=== PATIENT | female | born 1955 | race Caucasian/White ===

== ENCOUNTER 2022-01-28 12:29 | Inpatient (IN) | payer OTHER, MEDICAID ==
[~2022-01-28] VITALS: Ht 147.3 cm; Wt 87.1 kg
--- NOTE | 2022-01-28 10:15 | NUR ---
LAB AT THE BEDSIDE FOR BMP DRAW.
[~2022-01-28 12:29] MED LIST: ALBU0.0912 IH; AZIT250T3 PO; CEPH-588 PO
--- NOTE | 2022-01-28 12:29 | NUR ---
Patient BIBA to bed 1, Dr. Parker, RT Horacio, and Evangelina RN at bedside
--- NOTE | 2022-01-28 12:30 | NUR ---
66 Y/O FEMALE BIBA C/O SOB X 3 DAYS. PER EMS PT O2 SAT WAS IN 80S, PT IS SATING AT 100% WITH CPAP IN ED. PT +TACHYPNEA, CRACKLES, INSPIRATORY AND EXPIRATORY WHEEZES AND PT IS USING ACCESSORY MUSCLES TO BREATH. PT AND MD AT PT BEDSIDE. BED LOCKED IN LOWEST POSITION, BED RAIL X1. PMH: CHF,COPD NKA
[2022-01-28 12:47] VITALS: BP_SYST 101; BP_SYST 131; BP_DIAS 52; BP_DIAS 59
[2022-01-28] MEDS ORDERED: NITROGLYCERIN 50 MG/D5W PREMIX 250 ML IV ONE ×2 (12:50→14:45)
[2022-01-28] MEDS ORDERED: ASPIRIN 325 MG TAB PO ONE (12:50)
[2022-01-28] MEDS ORDERED: methylPREDNISolone SS 125 MG in WATER STERILE 2 ML IV ONE (12:50)
[2022-01-28] MEDS ORDERED: FUROSEMIDE 40 MG/4 ML VIAL IVP ONE ×2 (12:50→12:58)
[2022-01-28] MEDS ORDERED: methylPREDNISolone SS 125 MG/2 ML VIAL ONE (12:57)
[2022-01-28] MEDS ORDERED: ASPIRIN 325 MG TAB ONE (12:59)
[2022-01-28] MEDS ORDERED: ALBUTEROL SULFATE/IPRATROPIU 3 ML SOL IH ONE (13:30)
[2022-01-28 13:38] LABS: BASOPHILS % (AUTO) 0.4 % (0.0-2.0); EOSINOPHILS % (AUTO) 0.6 % (0.0-4.0); HEMATOCRIT 26.6 % (36-48); HEMOGLOBIN 7.9 g/dL (12.0-16.0); LYMPHOCYTES # (AUTO) 1.4 K/uL (2.5-16.5); LYMPHOCYTES % (AUTO) 17.4 % (20.5-51.1); MEAN CORPUSCULAR HEMOGLOBIN 21 pg (27-31); MEAN CORPUSCULAR HGB CONC 30 g/dL (33-37); MEAN CORPUSCULAR VOLUME 69.7 fL (80-94); MONOCYTES # (AUTO) 0.8 K/uL (0.8-1.0); MONOCYTES % (AUTO) 10.3 % (1.7-9.3); NEUTROPHILS # (AUTO) 5.7 K/uL (1.8-7.7); NEUTROPHILS % (AUTO) 71.3 % (42.2-75.2); PLATELET COUNT (AUTO) 558 K/uL (140-450); RED BLOOD CELL COUNT(AUTO) 3.82 MIL/uL (4.20-5.40); RED CELL DISTRIBUTION WIDTH 22.2 % (11.6-13.7)
[2022-01-28 13:50] LABS: PROTHROMBIN TIME 11.6 secs (10.8-13.4)
[2022-01-28 13:53] LABS: ALBUMIN 3.2 g/dL (3.4-5.0); ANION GAP 8.2 (8-16); CARBON DIOXIDE 34.4 mmol/L (21-32); CREATININE 0.7 mg/dL (0.6-1.3); TOTAL BILIRUBIN 0.4 mg/dL (0.0-1.0)
[2022-01-28 13:56] LABS: POTASSIUM 2.6 mmol/L (3.5-5.1)
[2022-01-28] MEDS ORDERED: KCL 20 MEQ/WATER INJ PREMIX 200 ML IV ONE (14:05)
[2022-01-28] MEDS ORDERED: POTASSIUM CHLORIDE 20% 40 MEQ/15 ML UDC PO ONE (14:05)
--- NOTE | 2022-01-28 14:27 | NUR ---
ATTEMPTED TO TAKE BP READING READ 46/25. MADE MULTIPLE ATTEMPTS TO RECHECK WITH NO BP READING, CHANGED LOCATION OF BP CUFF. NOT ABLE TO OBTAIN READINGS. PT DIAPHORETIC, AGITATED. RT NOTIFIED. MD NOTIFIED. NITRO DRIP STOPPED
--- NOTE | 2022-01-28 14:27 | NUR ---
Note heavenly in EDM - 01/28/22 at [address] MCRAE AND RT AT BEDSIDE. PT IS VERY AGITATED AND ATTEMPTING TO TAKE OFF BIPAP, TRYING TO SPIT UP. NITRO DRIP STOPPED.
[2022-01-28 14:28] VITALS: BP 110/42
--- NOTE | 2022-01-28 14:28 | NUR ---
ENGINEERING SCIENTIST CALLED TO BEDSIDE PATIENT PRESENTING WITH INCREASED SOB WITH TOTAL RATE AT +40 BPM DEEP CHEST RISE COARSE RALES BILATERAL ADJUSTMENTS MADE TO BIPAP DR. LANEY INGRAM AT BEDSIDE
[2022-01-28] MEDS ORDERED: fentaNYL citrate 0.05 MG/ML VIAL IVP ONE (14:35)
[2022-01-28] MEDS ORDERED: ONDANSETRON 4 MG/2 ML VIAL IVP ONE (14:35)
--- NOTE | 2022-01-28 14:36 | NUR ---
BP TAKEN 110/42. RT AT PT BEDSIDE. PT LESS AGITATED.
--- NOTE | 2022-01-28 14:50 | NUR ---
Pt report given to NEETU,SLUDGE CONTROL ATTENDANT. Transfer of care at this time.
--- NOTE | 2022-01-28 15:00 | NUR ---
RECEIVED REPORT. PATIENT VSS. SO2 98% ON BIPAP. POSTERIOR LUNG SOUNDS WITH WHEEZES BILATERALLY.
[2022-01-28] MEDS ORDERED: fentaNYL citrate 0.05 MG/ML VIAL ONE (15:42)
--- NOTE | 2022-01-28 15:50 | NUR ---
PEE MCKEON WALKED TO LAB
--- NOTE | 2022-01-28 17:00 | NUR ---
ADMISSION ORDER RECEIVED FOR ICU.
[2022-01-28] MEDS ORDERED: ALBUTEROL SULFATE/IPRATROPIU 3 ML SOL IH PRN (17:40)
--- NOTE | 2022-01-28 18:43 | NUR ---
#22G IV WAS PULLED OUT WITH PATIENT MOVING. ATTEMPTED TO INSERT NEW WITHOUT SUCCESS.
[2022-01-28] MEDS: ALBUTEROL SULFATE/IPRATROPIU 3 ML SOL IH SCH (19:44)
--- NOTE | 2022-01-28 19:45 | NUR ---
TRANSFERRED PATIENT TO ICU 2 FROM ED. REPORT GIVEN TO XIMENA BUSCH.
--- NOTE | 2022-01-28 19:45 | NUR ---
RECEIVED PT. FROM ER, REPORT GIVEN BY XIMENA DE ANDA. PT. AOX4. EYES PERRLA. ON BIPAP 35%, MAINTAINING O2 SAT GREATER THAN 96%. LUNG SOUNDS RHONCHI ON INHALE AND EXHALE. CONT. SINUS RHYTHM ON MONITOR. IV TO RIGHT AC 18G, CAPPED AND FLUSH. STARTED PACK CATHETER DRAINING CLEAR YELLOW URINE, STRICT I&O PER MD ORDERED. PT. SCHEDULE FOR PICC LINE AND CALLED PICC LINE RN, LEFT A MESSAGE, NO CALL BACK YET. PT. SIGNED CONSENT FOR PICC LINE. EXPLAINED TO PT. ABOUT CODE STATUS, IF SHE WANTS TO BE A FULL CODE AND PER PT.SHE STATED SHE WANTS TO BE A FULL CODE IN THE EVENT THAT HER CONDITION DETERIORATE. SISTER MAURY CALLED AND PROVIDED UPDATE WITH PT. CONDITION. SKIN INTACT WITH SMALL SCAR AT THE RIGHT BUTTOCK. ALL SAFETY MEASURES IN PLACE WITH BED IN LOWER POSITION AND CALL LIGHT WITHIN REACH. PT. ABLE TO REPOSITION HERSELF IN BED. NO S/S OF PAIN NOTED.
[2022-01-28 20:00] VITALS: BP 124/79
[2022-01-28] MEDS: methylPREDNISolone SS 125 MG/2 ML VIAL IVP SCH (21:00)
[2022-01-28] MEDS: PANTOPRAZOLE 40 MG INJ VIAL IVP SCH (21:00)
[2022-01-28 22:00] VITALS: BP 112/71
[2022-01-28] MEDS: ZOLPIDEM 5 MG TAB PO PRN (22:10)
--- NOTE | 2022-01-28 23:00 | NUR ---
PT. GIVEN AMBIEN PO PER MD ORDERED AND EFFECTIVE. PT. SLEEPING AT THIS TIME. CONT. ON BIPAP FIO2 28% AND O2 SAT 97%. WILL CONT. TO MONITOR.
[2022-01-28] MEDS ORDERED: MAG SULF 2000 MG/WATER PREMIX 50 ML IV PRN (23:25)
[2022-01-28] MEDS ORDERED: POTASSIUM CHLORIDE 10 MEQ TABER PO PRN (23:25)
[2022-01-28] MEDS ORDERED: DOCUSATE SODIUM 100 MG GELCAP PO PRN (23:35)
[2022-01-28] MEDS ORDERED: ZOLPIDEM 5 MG TAB PO PRN (23:35)
[2022-01-28] MEDS ORDERED: ACETAMINOPHEN 325 MG TAB PO PRN (23:35)
[2022-01-29] VITALS (20 sets, daily range): BP systolic 104–158; BP diastolic 51–89
[2022-01-29 00:03] LABS: CHOL/HDL RATIO 2.9 (1-4.5); THYROID STIMULATING HORMONE 0.12 uIU/mL (0.34-3.74)
[2022-01-29] MEDS: ALBUTEROL SULFATE/IPRATROPIU 3 ML SOL IH SCH ×4 (01:00→19:15)
[2022-01-29] MEDS: HYDROcodone/APAP 5/325 MG 1 TAB TAB PO PRN ×2 (03:28→13:53)
--- NOTE | 2022-01-29 03:28 | NUR ---
PT. AWAKE, ALERT AND ORIENTED, REPOSITIONING HERSELF IN BED AND C/O ACHING PAIN TO HER LEGS, RATE SCALE 6. GIVEN NORCO PO PRN ORDERED. WILL CONT. TO MONITOR
--- NOTE | 2022-01-29 04:04 | NUR ---
PT. PAIN MEDICATION PRN EFFECTIVE, PT. SLEEPING AT THIS TIME. V/S 104/51, HR 95, R 24 ON BIPAP 28% AND O2 SAT 91%.WILL CONT. TO MONITOR.
--- NOTE | 2022-01-29 04:14 | NUR ---
LAB AT THE BEDSIDE FOR BMP DRAW, PT. REFUSED TO DRAW HER BLOOD. TRIED TO TALKED AND EXPLAINED TO HER BUT SHE STRONGLY REFUSED. WILL ENDORSE TO THE NEXT SHIFT.
[2022-01-29 05:30] LABS: APPEARANCE,URINE CLEAR (CLEAR); BILIRUBIN,URINE NEGATIVE (NEGATIVE); BLOOD, URINE NEGATIVE (NEGATIVE); COLOR,URINE YELLOW (YELLOW); LEUKOCYTE ESTERASE ,URINE NEGATIVE (NEGATIVE); NITRITE, URINE NEGATIVE (NEGATIVE); UGLUCOSE NEGATIVE (NEGATIVE)
[2022-01-29 05:43] LABS: BARBITURATE, URINE NEGATIVE ng/ml (NEG <=200); BENZODIAZEPINE, URINE POSITIVE ng/mL (NEG <=200); CANNABINOID, URINE NEGATIVE ng/mL (NEG <=50); COCAINE, URINE NEGATIVE ng/mL (NEG <=300); OPIATE, URINE POSITIVE ng/mL (NEG <=2000); PHENCYCLIDINE SCREEN,URINE NEGATIVE ng/mL (NEG <=25)
[2022-01-29] MEDS: methylPREDNISolone SS 125 MG/2 ML VIAL IVP SCH (05:44)
[2022-01-29] MEDS ORDERED: ALBUTEROL SULFATE/IPRATROPIU 3 ML SOL IH SCH (06:00)
--- NOTE | 2022-01-29 06:00 | NUR ---
PT. ORAL INTAKE 2 TEASPOON OF VANILLA PUDDING TO TAKE HER PO MEDICATIONS.
--- NOTE | 2022-01-29 06:48 | NUR ---
PT. PROVIDED AM CARE AND CARMINE-CARE. SLEEPING AT THIS TIME. CONT. ON BIPAP 28% WITH O2 SAT 96%. IV TO RIGHT AC, FLUSHED WITH NS 10 ML, PATENT, INTACT AND CAPPED. COLLECTED DRUG SCREEN URINE AND URINALYSIS AND SENT TO LAB. BMP NOT COLLECTED BY LAB SINCE PT. REFUSED TO BE DRAWN. REPORTED TO THE EDITORIAL ASSISTANT AND WILL ENDORSE TO THE NEXT SHIFT. PT. SCHEDULE FOR ECHOCARDIOGRAM PER MD ORDERED. WILL ENDORSE TO THE NEXT SHIFT.
--- NOTE | 2022-01-29 07:10 | NUR ---
CXR DONE AT BEDSIDE.
--- NOTE | 2022-01-29 07:20 | NUR ---
RECIEVED PT ALERT AND ORIENTED X3. NO C/O PAIN AT THIS TIME. ON BIPAP WITH SETTINGS OF 12/6 RATE 16 FIO2@28%. SINUS RHYTHM ON MONITOR. ABD HYPOACTIVE X4 QUADS. PACK CATHETER INTACT AND DRAINING YELLOW URINE TO BSD. SCD ON BILAT LOWER LEGS. PERIPHERAL IV 18 GAUGE INTACT AND PATENT ON RAC. KEPT CLEAN AND DRY. SAFETY PRECAUTIONS IN PLACE. WILL CONTINUE TO MONITOR.
--- NOTE | 2022-01-29 07:22 | NUR ---
ENDORSED PT. TO DAY SHIFT RN FOR CONTINUITY OF CARE.
--- NOTE | 2022-01-29 08:45 | NUR ---
PICC LINE NURSE AT BEDSIDE TO INSERT MID LINE ON LEFT UPPER ARM. ULTRASOUND AT BEDSIDE.
--- NOTE | 2022-01-29 08:53 | NUR ---
SEEN AND EXAMINED BY DR. MARTINEZ.
[2022-01-29] MEDS ORDERED: FUROSEMIDE 40 MG/4 ML VIAL IVP SCH ×2 (09:00→16:00)
--- NOTE | 2022-01-29 09:14 | NUR ---
PATIENT HAS BEEN SCREENED AND CATEGORIZED MODERATE NUTRITION RISK. PATIENT WILL BE SEEN WITHIN 3-5 DAYS OF ADMISSION. [address]
--- NOTE | 2022-01-29 09:15 | NUR ---
SEEN AND EXAMINED BY DR. CHOU.
[2022-01-29] MEDS: PANTOPRAZOLE 40 MG INJ VIAL IVP SCH ×2 (09:16→20:33)
--- NOTE | 2022-01-29 09:30 | NUR ---
ECHOCARDIOGRAM BEING DONE AT BEDSIDE.
--- NOTE | 2022-01-29 10:25 | NUR ---
LAB AT BEDSIDE.
[2022-01-29 10:34] LABS: HEMATOCRIT 24.9 % (36-48); HEMOGLOBIN 7.3 g/dL (12.0-16.0); MEAN CORPUSCULAR HEMOGLOBIN 20 pg (27-31); MEAN CORPUSCULAR HGB CONC 29 g/dL (33-37); MEAN CORPUSCULAR VOLUME 69.9 fL (80-94); PLATELET COUNT (AUTO) 568 K/uL (140-450); RED BLOOD CELL COUNT(AUTO) 3.56 MIL/uL (4.20-5.40); WHITE BLOOD COUNT (AUTO) 5.3 K/uL (4.8-10.8)
[2022-01-29 10:54] LABS: CARBON DIOXIDE 35.8 mmol/L (21-32); CREATININE 0.8 mg/dL (0.6-1.3); MAGNESIUM 2.7 mg/dL (1.8-2.4); PHOSPHORUS 5.7 mg/dL (2.5-4.9); TOTAL BILIRUBIN 0.5 mg/dL (0.0-1.0)
[2022-01-29 10:56] LABS: POTASSIUM 2.8 mmol/L (3.5-5.1)
[2022-01-29 11:16] LABS: EOSINOPHILS % (MANUAL) 1 % (0-4); LYMPHOCYTES % (MANUAL) 12 % (20-46); MONOCYTES % (MANUAL) 6 % (5-12)
--- NOTE | 2022-01-29 11:20 | NUR ---
DR. CORONA AT BEDSIDE EXAMINING PT. REPORTED CRITICAL LAB TO DR. CORONA. RECEIVED NEW ORDER.
--- NOTE | 2022-01-29 11:32 | NUR ---
RT AT BEDSIDE.
[2022-01-29] MEDS ORDERED: KCL 20 MEQ/WATER INJ PREMIX 200 ML IV SCH (11:45)
--- NOTE | 2022-01-29 12:03 | NUR ---
DC PLANNIN YRS FEMALE PATIENT WAS ADMITTED FROM [facility] WITH A DX OF CHF AND COPD EXACERBATION, ACUTE RESP DISTRESS. PATIENT HAS A HX OF CHF, COPD HOME O2 BREAST CA. CXRAY (-) RAPID COVID TEST NEGATIVE. ON BIPAP 28% FIO2 SATING 95%. ADMITTED TO ICU FOR CLOSE MONITORING, ADMINISTERED LASIX AND SOLU-MEDROL IV AND CONTINUED HOME MEDS CONSULTED WITH BETOMO AND CARDIO. DC PLAN TO RETURN TO [facility] WHEN STABLE. CM TO FOLLOW Addendum: 01/30/22 at 1258 by Anila Molina RN DC PLANNING: DR FLACA SLATER, IN THE UNIT DISCUSSED WITH PATIENT AND HER SISTER MAURY, EXPLAINED AND ANSWERED ALL QUESTIONS, BOTH AGREED WITH INTUBATION. PT SUCCESSFULLY INTUBATED FIO2 60% . CM TO FOLLOW Addendum: 01/31/22 at 1348 by Anila Molina RN DC PLANNING: REMAINS INTUBATED FIO2 30% 1 UNIT PRBC GIVEN H/H 7.9/25.8 HELD IFRAH PER BULK INTAKE WORKER CONTINUE IV ABX LEVAQUIN. CARDIO, PULMOAND NEPHRO FOLLOWING. CM TO FOLLOW Addendum: 02/04/22 at 1519 by Anila Molina RN DC PLANNING: COLONOSCOPY DONE NO SOURCE OF BLEEDING IDENTIFIED. STILL INTUBATED SEDATED FIO2 30%. CONTINUE PROPOFOL AND PRECEDEX DRIP. PULMO AND CARDIO FOLLOWING. CM TO FOLLOW Addendum: 02/06/22 at 1250 by Anila Molina RN DC PLANNING: PATIENT REINTUBATED ON 02/05 AT 1300 FIO2 45%. WBC 19.9 UA NO GROWTH CONTINUE IV ABX ZOSYN ON PROPOFOL AND AMIODARONE DRIP. CARDIO , PULMO AND NEPHRO FOLLOWING. CM TO FOLLOW. Addendum: 02/12/22 at 1119 by Anila Molina RN DC PLANNING: SPOKE WITH DR HINES DISCUSSED THE SURGERY PLAN . EXPLAIN THE DELAY WITH THE HIGH HEART RATE . DR HINES SPOKE WITH DR DHALIWAL AND WAS TOLD MIGHT DO IT TOMORROW 02/[address] HINES ORDERED IF DR DHALIWAL'S PLAN CHANGE TO [facility] EVALUATION. FAXED THE ORDER TO [facility] NOTIFIED DR LIN. SMITH TO FOLLOW Addendum: 02/13/22 at 1511 by Anila Molina RN DC PLANNING PATIENT HAD TRACH AND PEG TODAY BY DR DHALIWAL TOLERATED WELL. DC PLAN SUBACUTE PLACEMENT. [facility]. Addendum: 02/17/22 at 1052 by Anila Molina RN DC PLANNING: WBC 32.6 ON VANCOMYCIN AND ZOSYN IV ABX , TRACH TO VENT ON SOLU-MEDROL IVP PULMO,ID NEPHRO AND UROLOGIST FOLLOWING. DC PLAN TO TRANSFER TO [facility] ROOM WHEN STABLE. CM TO FOLLOW Addendum: 02/18/22 at 1103 by Anila Molina RN DC PLANNING: FAXED THE CLINICALS TO [facility] . ZBIGNIEW MALLOY WILL TALK TO THE DON REGARDING THE WBC 18.1 AND CALL BACK CM TO FOLLOW Addendum: 02/18/22 at 1127 by Anila Molina RN DC PLANNING: CALLED PATIENT'S SISTER [phone] SPOKE WITH MAURY DISCUSSED THE DC PLAN PER MAURY AT FIRST REQUESTING TO BE TRANSFERRED TO THE [facility] OR [facility]. LUIS EXPLAINED DEPENDS ON INSURANCE CONTRACTED FACILITIES. MAURY CALLED BACK AND STATED SINCE THE DR'S ARE GOOD TO HER SHE PREFERRED THAT THE DR'S RECOMMENDED SUBACUTE. MAURY AGREED FOR HER SISTER TO GO TO [facility]. CM TO FOLLOW Addendum: 02/18/22 at 1150 by Anila Molina RN DC PLANNING: CESAR LA NENA SPOKE WITH ROSY AND SHE PROVIDED THE AUTH # FOR [facility] AND TRANSPORT AUTH # [id number] PATIENT IS ACCEPTED AT [facility] CAN GO TO ROOM 3A # TO GIVE REPORT [phone] ARRANGED TRANSPORT WITH [facility] TIME 4 PM. NOTIFIED JEREMY BUENO AND PT'S SISTER MAURY. CM TO FOLLOW
[2022-01-29] MEDS: methylPREDNISolone SS 40 MG/ML VIAL IVP SCH ×2 (12:35→20:34)
--- NOTE | 2022-01-29 13:24 | NUR ---
DR. THAYER AT BEDSIDE EXAMINING PT. NEW ORDERS RECEIVED.
--- NOTE | 2022-01-29 13:39 | NUR ---
PT AT BEDSIDE FOR EVAL. RT AT BEDSIDE.
[2022-01-29] MEDS: LEVOFLOXACIN 500 MG/D5W PREMIX 100 ML IV SCH (13:53)
--- NOTE | 2022-01-29 15:55 | NUR ---
PT REMOVED FROM BIPAP 27/02 AND PLACED ON 7L OXIMIZER PER WEANING MEASURES. PT HAS AUDIBLE WHEEZES. PT HAS NO SOB OR COMPLAINTS. SPO2 MAINTAINED ABOVE 96%. WILL MONITOR & F/U.
--- NOTE | 2022-01-29 17:31 | NUR ---
PT WITH INCREASED WORK OF BREATHING WITH OXYMISER. EDUCATED AND DEMONSTRATED BREATHING TECHNIQUES. PT REQUEST TO GO BACK ON BIPAP. RT AT BEDSIDE AND PLACED PT BACK ON BIPAP SETTINGS 27/02 RATE 16 FIO2 28%. PT NODDED THAT SHE FEELS BETTER WITH THE BIPAP ON.
--- NOTE | 2022-01-29 19:18 | NUR ---
ENDORSED TO RETAIL PRODUCT ADVISOR NURSE NARAYAN FOR CONTINUITY OF CARE.
[2022-01-29] MEDS: BUDESONIDE 0.5 MG/2 ML NEBU INH SCH (19:21)
--- NOTE | 2022-01-29 19:35 | NUR ---
PT SEEN AND ASSESSED. PT IS ON BiPAP AT THIS TIME. BiPAP SETTINGS: IPAP 16, EPAP 6, BACK UP RATE 16, FiO2 28% WITH SPO2 97%. BiPAP PLUGGED IN RED OUTLET. AMBU BAG AT BEDSIDE. ALARMS SET AND FUNCTIONING. AUSCULTATION REVEALS CLEAR BILATERAL BREATH SOUNDS. HHN TX GIVEN ORDERED AND PT TOLERATED WELL WITHOUT ANY ADVERSE REACTION. NO RESPIRATORY DISTRESS NOTED AT THIS TIME. WILL CONTINUE TO MONITOR
--- NOTE | 2022-01-29 19:38 | NUR ---
RECEIVED REPORT FROM DAY SHIFT RN. PT. WIDE AWAKE, AOX4. ABLE TO MOVE ALL EXTREMITIES AND ABLE TO LET NEEDS KNOWN. CONT. ON BIPAP FI02 28%, I-16, E-6. PT. TOLERATING BIPAP WITH O2 SAT 95%. LUNG SOUNDS, WHEEZING ON THE RIGHT SIDE AND RHONCHI ON THE LEFT SIDE. ST ON MONITOR. ABDOMEN SOFT, NON TENDER, HYPOACTIVE SOUND. IVF NS TKO TO THE LEFT ARM MID PICC LINE. SITE DRY, PATENT AND INTACT. BREAKFAST FULL LIQUID AT THE BEDSIDE, OFFERED, BUT PT. REFUSED. F/C IN PLACE AND DRAINING YELLOW CLEAR URINE TO GRAVITY. SEQUENTIAL DEVICES ON. TO LOWER EXTREMITIES. INITIAL ASSESSMENT COMPLETED. ALL SAFETY MEASURES IN PLACE WITH BED IN LOWEST POSITION. WILL CONT. TO MONITOR
[2022-01-29] MEDS: DILTIAZEM 30 MG TAB PO SCH (20:35)
[2022-01-29] MEDS: APIXABAN 2.5 MG TAB PO SCH (20:45)
[2022-01-29] MEDS ORDERED: LORazepam 2 MG/ML VIAL IVP ONE (21:15)
--- NOTE | 2022-01-29 21:16 | NUR ---
PT. NOTED TO BE ANXIOUS WITH HR 110. CALLED DR. LOMBARDI, REPORTED PT. ANXIETY AND ORDERED ATIVAN 0.5MG IVP X 1 AND IF NOT EFFECTIVE TO CALL HIM BACK.
[2022-01-29] MEDS ORDERED: LORazepam 2 MG/ML VIAL ONE ×2 (21:23→23:02)
--- NOTE | 2022-01-29 22:37 | NUR ---
PT. PROVIDED PERSONAL HYGIENE, TURNED AND REPOSITIONED. BED PLACED IN A LOWEST POSITION WITH HEAD WITHIN 45 DEGREES.
[2022-01-29] MEDS ORDERED: LORazepam 2 MG/ML VIAL IVP SCH (23:00)
--- NOTE | 2022-01-29 23:00 | NUR ---
PT. ATIVAN 0.5MG IVP X [address] LOMBARDI IS NOT EFFECTIVE. CALLED AGAIN DR. LOMBARDI, REPORTED PT. REMAINS AGITATED AND HE ORDERED ATIVAN 1.5MG IVP X 1 AND CALL HIM AGAIN IF NOT EFFECTIVE.
[2022-01-30] VITALS (21 sets, daily range): BP systolic 91–150; BP diastolic 53–85
[2022-01-30] MEDS: ZOLPIDEM 5 MG TAB PO PRN (00:44)
[2022-01-30] MEDS: methylPREDNISolone SS 40 MG/ML VIAL IVP SCH ×3 (04:48→20:15)
[2022-01-30 05:34] LABS: ANION GAP 8.9 (8-16); CARBON DIOXIDE 33.1 mmol/L (21-32); CREATININE 1.1 mg/dL (0.6-1.3)
[2022-01-30 05:45] LABS: MAGNESIUM 2.6 mg/dL (1.8-2.4); PHOSPHORUS 3.6 mg/dL (2.5-4.9)
[2022-01-30 06:19] LABS: HEMATOCRIT 23.2 % (36-48); MEAN CORPUSCULAR HEMOGLOBIN 21 pg (27-31); MEAN CORPUSCULAR HGB CONC 29 g/dL (33-37); MEAN CORPUSCULAR VOLUME 70.1 fL (80-94); PLATELET COUNT (AUTO) 650 K/uL (140-450); RED BLOOD CELL COUNT(AUTO) 3.31 MIL/uL (4.20-5.40); RED CELL DISTRIBUTION WIDTH 22.1 % (11.6-13.7); WHITE BLOOD COUNT (AUTO) 15.2 K/uL (4.8-10.8)
[2022-01-30] MEDS: HYDROcodone/APAP 5/325 MG 1 TAB TAB PO PRN (06:27)
--- NOTE | 2022-01-30 06:43 | NUR ---
CONSTRUCTION HELPER CALLED TO BEDSIDE PATIENT PRESENTING WITH INCREASED SOB AND IRRITABILITY SITTING UP ON EDGE OF BED CINDY/SARY RN AT BEDSIDE HHN THERAPY WITH DUONEB GIVEN AT THIS TIME SCHEDULED AND PRN CONSTRUCTION HELPER REQUESTED RN TO GIVE LASIX AT THIS TIME
[2022-01-30] MEDS ORDERED: FUROSEMIDE 40 MG/4 ML VIAL IVP ONE (06:53)
--- NOTE | 2022-01-30 06:55 | NUR ---
PHONE CALL TO DR CHOU; INFORMED RE; PT SOB, WHEEZING NOTED, RT AT BEDSIDE, PER DR CHOU TO GIVE 0900 LASIX IVP NOW
[2022-01-30] MEDS: ALBUTEROL SULFATE/IPRATROPIU 3 ML SOL IH SCH ×3 (06:56→19:07)
[2022-01-30] MEDS: BUDESONIDE 0.5 MG/2 ML NEBU INH SCH ×2 (06:57→19:08)
[2022-01-30] MEDS: ALBUTEROL SULFATE/IPRATROPIU 3 ML SOL IH PRN ×2 (06:57→16:23)
--- NOTE | 2022-01-30 07:15 | NUR ---
ENDORSED PT. TO AM SHIFT RN FOR CONTINUITY OF CARE. DR. CHOU AND RT ARE AT THE BEDSIDE RIGHT NOW, CHECKING THE PT.
--- NOTE | 2022-01-30 07:32 | NUR ---
RECEIVED PT ALERT AND ORIENTED X3. ON BIPAP WITH SETTINGS 16/6 RATE 16 FIO2@28%. WHEEZING HEARD THROUGHOUT LUNGS. SINUS TACHYCARDIA ON MONITOR. BOWEL SOUNDS HYPOACTIVE. PACK CATHETER INTACT AND DRAINING TO BSD. PERIPHERAL IV 18 GAUGE INTACT AND PATENT ON RAC. MIDLINE ON LAC INTACT AND PATENT INFUSING NS AT TKO. KEPT CLEAN AND DRY. SAFETY PRECAUTIONS IN PLACE.
[2022-01-30] MEDS ORDERED: SODIUM PHOSPHATE 118 ML ENEM RC SCH (07:52)
[2022-01-30 07:56] LABS: HEMOGLOBIN 6.8 g/dL (12.0-16.0)
[2022-01-30] MEDS: ATORVASTATIN 20 MG TAB PO SCH (08:28)
[2022-01-30] MEDS: PANTOPRAZOLE 40 MG INJ VIAL IVP SCH ×2 (08:28→20:15)
[2022-01-30] MEDS: DILTIAZEM 30 MG TAB PO SCH ×2 (08:28→20:15)
[2022-01-30] MEDS: APIXABAN 2.5 MG TAB PO SCH (08:29)
[2022-01-30] MEDS: POLYETHYLENE GLYCOL 17 GM/PKT PO SCH (08:29)
--- NOTE | 2022-01-30 08:30 | NUR ---
PHYSICAL THERAPIST AT BEDSIDE.
[2022-01-30 08:42] LABS: LYMPHOCYTES % (MANUAL) 6 % (20-46); MONOCYTES % (MANUAL) 3 % (5-12)
[2022-01-30] MEDS ORDERED: ETOMIDATE 20 MG/10 ML VIAL IVP ONE ×2 (09:00→09:10)
[2022-01-30] MEDS ORDERED: FUROSEMIDE 40 MG/4 ML VIAL IVP SCH (09:00)
[2022-01-30] MEDS ORDERED: ROCURONIUM 50 MG/5 ML VIAL IV ONE ×2 (09:00→09:10)
--- NOTE | 2022-01-30 09:02 | NUR ---
INTERIOR DESIGN DIRECTOR'S CALLED TO BEDSIDE FOR PATIENT INTUBATION Max HINOJOSA RCP AND ARELY BRAY ATTENDING
--- NOTE | 2022-01-30 09:05 | NUR ---
DR. DANICA THAYER AT BEDSIDE FOR INTUBATION PATIENT PRE-OXYGENATED WITH FIO2 AT 100% VIA BIPAP
[2022-01-30 09:06] LABS: T4 (THYROXINE) 7.7 ug/dL (4.5-12.0)
--- NOTE | 2022-01-30 09:08 | NUR ---
DR. DANICA ALLEN: VENTILATOR SEETINGS MODE AC RATE 24 VT 450ml PEEP 5cmH2O FIO2 60%; ABG 1 HOUR AFTER VENTILATOR INITIATED
--- NOTE | 2022-01-30 09:08 | NUR ---
SIRENA SUCCESSFULLY INTUBATED BY DR. DANICA THAYER WITH AN ENDOTRACHEAL TUBE (ETT) #7.5 SECURED AT 22cm TEETH/GUM LINE WITH AN ANCHOR FAST ETT PLACEMENT CONFIRMED END TIDAL CO2 DETECTOR WITH FILAMENT TURNING YELLOW; AUSCULTATION BILATERAL PULMONARY DOYLE BY FOREMENTIONED MD RADIOLOGY TO FOLLOW FOR A/P CXR
--- NOTE | 2022-01-30 09:10 | NUR ---
PT NOTED WITH INCREASED WORK OF BREATHING AND ABDOMINAL BREATHING. DR. THAYER AT BEDSIDE AND PT AGREED TO TO INTUBATION. PT'S SISTER MAURY NOTIFIED. INTUBATION DONE AT BEDSIDE WITH DR. THAYER AND RT. PT TOLERATED PROCEDURE WELL. PT WITH ET TUBE TO VENT SETTINGS AC VC VT 400 RATE 24 PEEP 5 AND FIO2 60%. CHEST XRAY DONE AT BEDSIDE. OGTUBE PLACED.
--- NOTE | 2022-01-30 09:14 | NUR ---
RADIOLOGY AT BEDSIDE FOR CXR TUBE PLACEMENT
--- NOTE | 2022-01-30 09:23 | NUR ---
PLACED ON A [employer]APE R860 VENTILATOR PLUGGED INTO RED OUTLET TOLERATING WELL TO AN ENDOTRACHEAL TUBE #7,5 SECURED AT 22cm TEETH/GUM LINE WITH AN ANCHOR FAST AMBU BAG AT BEDSIDE PEAK PRESSURE AT +[id number] on Vt 450ml ORDERED (ARDS PROTOCOL 8ml/kg = 360ml) DECREASED Vt TO 400ml PEAK PRESSURE NOW DESCENDING TO [id number] LOGGING SUPERINTENDENT TO MONITOR
[2022-01-30] MEDS ORDERED: PROPOFOL 1000 MG/100 ML PREMIX 100 ML IV ONE (09:42)
--- NOTE | 2022-01-30 10:15 | NUR ---
PHYSICAL THERAPY CO-SIGN The Physical Therapy Progress Notes documented by Journeyman Pipe Welder have been reviewed. Reviewed/Co-Signed by: Es Camacho Documentation Done by: SHAD KUNZ PTA Addendum: 01/30/22 at 1015 by Es Camacho PT Amended: Links added.
--- NOTE | 2022-01-30 10:46 | NUR ---
ENDOTRACHEAL SUCTION FOR MODERATE SEMI THICK YELLOW SECRETIONS SPUTUM OBTAINED FOR VAP PROTOCOL SPECIMEN FORWARDED TO LAB
--- NOTE | 2022-01-30 10:52 | NUR ---
ABG PROCEDURE COMPLETED; PUNCTURE AT LEFT RADIAL NO ADVERSE REACTIONS NOTED
--- NOTE | 2022-01-30 11:10 | NUR ---
CALLED DR. DANICA THAYER AT [facility] TO REVIEW ABG SAMPLE REPORT AND CXR IMPRESSION FOR ETT PLACEMENT KARLO/EXCHANGE TO GABY DALY MD
--- NOTE | 2022-01-30 11:12 | NUR ---
CALL BACK FROM DR. DANICA THAYER REVIEWED ABG SAMPLE REPORT AND CXR IMPRESSION FOR ETT PLACEMENT TORBO DR. THAYER: DECREASE RATE TO 22 BPM; RETRACT ETT 1cm; CXR ON 01/31/22 IN AM Addendum: 01/30/22 at 1612 by Horacio Coronel RT KEEP SATURATION GREATER THAN 92%
--- NOTE | 2022-01-30 11:30 | NUR ---
RESTING COMFORTABLY TOLERATING VENTILATORY SUPPORT WELL WITHOUT COMPLICATIONS NOTED DEEP CHEST RISE TRACHEAL SUCTION FOR MODERATE THIN YELLOW SECRETIONS AIRWAY PATENT
--- NOTE | 2022-01-30 11:40 | NUR ---
PRE HHN THERAPY SATURATION 100% ON FIO2 OF 60% PEEP 5cmH2O POST HHN THERAPY TITRATED FIO2 TO 40% REVIEWED ABG SAMPLE REPORT AT 1056 pO2 164mmHg
--- NOTE | 2022-01-30 12:10 | NUR ---
TRANSFERRED PATIENT TO RADIOLOGY TO CT SCAN OF CHEST REMOVED PATIENT FORM VENTILATOR PLACED ON SUPPLEMENTAL OXYGEN AT 15 LPM VIA E-TANK (ADEQUATE PSI) TO AMBU BAG/HME/SUCTION CATHETER/ENDOTRACHEAL TUBE BAG DEPRESSION EVERY 6-8 SECONDS TOLERATED PROCEDURE AND TRANSFERS WELL WITHOUT COMPLICATIONS NOTED SATURATION 99%=100% HR 114
--- NOTE | 2022-01-30 12:38 | NUR ---
TRANSPORTED PT TO RADIOLOGY WITH MONITOR FOR CT ANGIO OF CHEST WITH RT. PT TOLERATED PROCEDURE WELL. Addendum: 01/30/22 at 1552 by Laurel Puga RN RETURNED PT BACK INTO ROOM BED 2. RT CONNECTED PT BACK TO VENT SETTINGS. SAFETY PRECAUTIONS IN PLACE. SAFETY ALARMS CHECKED AND ON.
--- NOTE | 2022-01-30 12:43 | NUR ---
DR. CORONA AT BEDSIDE EXAMINING PT.
--- NOTE | 2022-01-30 12:50 | NUR ---
SEEN AND EXAMINED BY DR. AMOS.
[2022-01-30] MEDS ORDERED: MAGNESIUM CITRATE 300 ML BTL PO SCH (13:00)
--- NOTE | 2022-01-30 13:35 | NUR ---
VERIFIED BLOOD WITH XIMENA BELTRAN. STARTED BLOOD TRANSFUSION OF 1 UNIT OF PRBC. VSS. NO ADVERSE REACTION NOTED. WILL CONTINUE TO CLOSELY MONITOR.
--- NOTE | 2022-01-30 13:58 | NUR ---
SEDATE GOOD CHEST RISE DEEP TRACHEAL SUCTION FOR MODERATE THIN YELLOW SECRETIONS AIRWAY PATENT SATURATION 98% ON FIO2 OF 40% PEEP 5cmH2O POST HHN THERAPY TITRATED FIO2 TO 35% BEAUTY SALES CONSULTANT TO KARAN WATERMAN/XIMENA Addendum: 01/30/22 at 1550 by Horacio Coronel RT SEDATE = SEDATED
--- NOTE | 2022-01-30 14:00 | NUR ---
KUB BEING DONE AT BEDSIDE. RT AT BEDSIDE.
--- NOTE | 2022-01-30 16:00 | NUR ---
BLOOD TRANSFUSION COMPLETED. VSS. NO ADVERSE SIDE EFFECTS NOTED.
[2022-01-30] MEDS: SODIUM FERRIC GLUCONATE 125 MG in NACL 0.9% 100 ML IV SCH (16:02)
[2022-01-30] MEDS: PROPOFOL 1000 MG/100 ML PREMIX 100 ML IV PRN ×2 (17:15→22:52)
[2022-01-30] MEDS: LEVOFLOXACIN 500 MG/D5W PREMIX 100 ML IV SCH (17:39)
--- NOTE | 2022-01-30 18:45 | NUR ---
DISCONTINUED PERIPHERAL IV ON RIGHT AC. CATHETER INTACT. APPLIED PRESSURE ON SITE. NO BLEEDING OR ADVERSE EFFECT. PT TOLERATED PROCEDURE WELL.
--- NOTE | 2022-01-30 19:10 | NUR ---
RECEIVED REPORT FROM AM SHIFT. PT SEEN AND ASSESSED. PT IS ON VENT SUPPORT, INTUBATED WITH ETT SIZE 7.5 AND SECURED WITH ANCHOR-FAST 21cm @ TEETH LEVEL. VENT SETTINGS: AC/VC RR 22, VT 400, PEEP 5, FiO2 35%. SPO2 97%. ALARMS SET AND FUNCTIONING. VENT PLUGGED IN RED OUTLET. AMBU BAG AT BEDSIDE. AUSCULTATION REVEALS COARSE CRACKLE BILATERAL BREATH SOUNDS. NOTICED ADEQUATE CHEST RISE AND FALL. AIRWAY IS PATENT. SUCTION SMALL AMOUNT OF WHITE /YELLOW THICK SECRETION FROM ETT AND SMALL WHITE ORALLY. NO RESPIRATORY DISTRESS NOTED AT THIS TIME. SCHEDULE HHN TX GIVEN ORDERED, AND PT TOLERATED TX WELL WITHOUT ANY ADVERSE REACTION. WILL CONTINUE TO MONITOR PT.
--- NOTE | 2022-01-30 19:12 | NUR ---
ENDORSED TO PERSONAL CARE HOME ADMINISTRATOR NURSE TAJ FOR CONTINUITY OF CARE.
--- NOTE | 2022-01-30 19:15 | NUR ---
RECEIVED REPORT FROM DAY SHIFT NURSE, ASSUMED CARE. PT CURRENTLY SEDATED RASS -2, NO SIGNS OF ACUTE DISTRESS, ETT TO VENT WITH AC/VC SETTINGS, FIO2 35%, VT 400, R 22, PEEP 5, O2 SAT 96%. OG TUBE IN PLACE RUNNING JEVITY AT 1.2 AT 20 ML/HR WITH 100 ML RESIDUAL. PACK CATHETER IN PLACE DRAINING TO GRAVITY. LAC MIDLINE PRESENT RUNNING PROPOFOL AT 30 MCG/KG/HR AND NS TKO. SKIN INTACT WITH NO OPEN WOUNDS. SOFT WRIST RESTRAINTS IN PLACE WITH NO SIGNS OF INJURY TO BILATERAL WRISTS. ALL SAFETY MEASURES IN PLACE, WILL CONTINUE TO MONITOR AND FOLLOW POC.
[2022-01-31] VITALS (32 sets, daily range): BP systolic 113–145; BP diastolic 60–97
--- NOTE | 2022-01-31 00:08 | NUR ---
TITRATED FiO2 FROM 35% TO 30%. SPO2 95%. NO RESPIRATORY DISTRESS NOTED AT THIS TIME. PT IS TOLERATING WELL. RN NOTIFIED. WILL CONTINUE TO MONITOR PT.
--- NOTE | 2022-01-31 01:13 | NUR ---
PT CONTINUES SEDATED RASS -2 IN NO APPARENT ACUTE DISTRESS. RT AT BEDSIDE ASSESSING PT, ETT TO VENT, FIO2 AT 30%. PROPOFOL INFUSING AT 35 MCG/KG/HR THROUGH LAC MIDLINE. CONTINUES ON SOFT WRIST RESTRAINTS WITH NO EVIDENCE OF INJURY. ALL SAFETY MEASURES IN PLACE, WILL CONTINUE TO CLOSELY MONITOR AND FOLLOW POC.
[2022-01-31] MEDS: methylPREDNISolone SS 40 MG/ML VIAL IVP SCH ×3 (04:24→20:08)
--- NOTE | 2022-01-31 04:30 | NUR ---
MORNING CARE PROVIDED, REPOSITIONED PT, TOLERATED WELL. PT IN NO APPARENT ACUTE DISTRESS. CONTINUES SEDATED RASS -2, CONTINUES ON PROPOFOL RUNNING AT 35 MCG/KG/HR. ALL SAFETY MEASURES IN PLACE, WILL CONTINUE TO CLOSELY MONITOR AND FOLLOW POC.
[2022-01-31 05:19] LABS: HEMATOCRIT 25.8 % (36-48); HEMOGLOBIN 7.9 g/dL (12.0-16.0); LYMPHOCYTES # (AUTO) 0.7 K/uL (2.5-16.5); LYMPHOCYTES % (AUTO) 3.6 % (20.5-51.1); MEAN CORPUSCULAR HEMOGLOBIN 22 pg (27-31); MEAN CORPUSCULAR HGB CONC 31 g/dL (33-37); MEAN CORPUSCULAR VOLUME 73.3 fL (80-94); MONOCYTES # (AUTO) 1.3 K/uL (0.8-1.0); MONOCYTES % (AUTO) 6.2 % (1.7-9.3); NEUTROPHILS # (AUTO) 18.2 K/uL (1.8-7.7); NEUTROPHILS % (AUTO) 90.2 % (42.2-75.2); PLATELET COUNT (AUTO) 619 K/uL (140-450); RED BLOOD CELL COUNT(AUTO) 3.53 MIL/uL (4.20-5.40); RED CELL DISTRIBUTION WIDTH 23.4 % (11.6-13.7); WHITE BLOOD COUNT (AUTO) 20.2 K/uL (4.8-10.8)
[2022-01-31 05:20] LABS: ANION GAP 8.6 (8-16); CARBON DIOXIDE 34.8 mmol/L (21-32); CREATININE 1.1 mg/dL (0.6-1.3); POTASSIUM 4.4 mmol/L (3.5-5.1)
[2022-01-31 05:34] LABS: MAGNESIUM 6.2 mg/dL (1.8-2.4); PHOSPHORUS 3.5 mg/dL (2.5-4.9)
--- NOTE | 2022-01-31 07:20 | NUR ---
REPORT GIVEN TO DAY SHIFT NURSE FOR CONTINUITY OF CARE. PT IN NO ACUTE DISTRESS.
--- NOTE | 2022-01-31 07:20 | NUR ---
RECEIVED BEDSIDE REPORT FROM TAJ DRAPER RN FOR CONTINUITY OF CARE. PT SEDATED, RASS -2, SUPINE IN THE BED. EYES CLOSED, PERRL. ETT TO VENT, ACVC, FIO2 30%, VT 400, PEEP 5, R 22. SR ON THE MONITOR. INCONTINENT OF BOWEL, CONSTIPATED PER NIGHT NURSE. F/C TO GRAVITY. MIDLINE TO MINDY, PATENT INTACT, INFUSING PROPOFOL AT 35 MCG/KG/MIN, NS TKO AT 5 ML/HR. SKIN INTACT. GENERALIZED WEAKNESS. STANDARD PRECAUTIONS IN PLACE. ALL SAFETY PRECAUTIONS MET. CALL LIGHT WITHIN REACH. INITIAL ASSESSMENT COMPLETE, WILL CONTINUE TO CLOSELY MONITOR.
[2022-01-31] MEDS: ALBUTEROL SULFATE/IPRATROPIU 3 ML SOL IH SCH ×3 (07:33→19:09)
--- NOTE | 2022-01-31 07:35 | NUR ---
RECEIVED ON A [employer] R860 VENTILATOR PLUGGED INTO RED OUTLET TOLERATING WELL WITHOUT ADVERSE REACTIONS NOTED TO AN ENDOTRACHEAL TUBE #7.5 SECURED AT 21cm TEETH/GUM LINE WITH AN ANCHOR FAST AMBU BAG AT BEDSIDE SEDATED RESTING WELL GOOD CHEST RISE ENDOTRACHEAL SUCTION FOR SCANT PALE YELLOW SECRETIONS AIRWAY PATENT
[2022-01-31] MEDS: BUDESONIDE 0.5 MG/2 ML NEBU INH SCH ×2 (07:45→19:23)
--- NOTE | 2022-01-31 08:12 | NUR ---
SEEN AND EXAMINED BY DR CHOU.
[2022-01-31] MEDS: POLYETHYLENE GLYCOL 17 GM/PKT PO SCH ×2 (09:00→16:41)
[2022-01-31] MEDS: ATORVASTATIN 20 MG TAB PO SCH ×2 (09:00→16:41)
[2022-01-31] MEDS: PROPOFOL 1000 MG/100 ML PREMIX 100 ML IV PRN ×3 (09:00→17:45)
[2022-01-31] MEDS: DILTIAZEM 30 MG TAB PO SCH ×2 (09:00→20:08)
--- NOTE | 2022-01-31 09:08 | NUR ---
SEEN AND EXAMINED BY DR MARTINEZ.
[2022-01-31] MEDS ORDERED: DOCUSATE 100 MG/10 ML UDC ONE (09:13)
[2022-01-31] MEDS: PANTOPRAZOLE 40 MG INJ VIAL IVP SCH ×2 (09:22→20:08)
--- NOTE | 2022-01-31 09:30 | NUR ---
NGT MEDS HELD FOR EGD PROCEDURE. WILL ADMINISTER AFTER.
--- NOTE | 2022-01-31 10:30 | NUR ---
DR KNOTT ORDERED STAT MAGNESIUM REDRAW, AND TO CALL WITH RESULTS IF CRITICAL.
--- NOTE | 2022-01-31 10:30 | NUR ---
SEEN AND EXAMINED BY DR KNOTT. ORDERS RECEIVED.
--- NOTE | 2022-01-31 10:35 | NUR ---
SEDATED NO APPARENT DISTRESS NOTED EQUAL CHEST RISE
[2022-01-31] MEDS ORDERED: POTASSIUM CHLORIDE 10 MEQ in DEXTROSE 5% 1,000 ML IV SCH (11:00)
--- NOTE | 2022-01-31 12:00 | NUR ---
PT CLEANED AND REPOSITIONED, NO STOOL NOTED. PACK CARE PROVIDED, ORAL CARE PROVIDED. TOLERATED WELL.
--- NOTE | 2022-01-31 12:03 | NUR ---
RECEIVED CALL FROM [facility]. UPDATED REGARDING PT CONDITION, ALL QUESTIONS ANSWERED AT THIS TIME.
--- NOTE | 2022-01-31 13:45 | NUR ---
RECEIVED CALL FROM LAB, CRITICAL VALUE MAGNESIUM 5.3. PAGED DR KNOTT.
--- NOTE | 2022-01-31 13:51 | NUR ---
SEDATED NO DISTRESS NOTED EQUAL CHEST RISE ENDOTRACHEAL SUCTION FOR SCANT PALE YELLOW SECRETIONS AIRWAY PATENT SATURATION 97% ON FIO2 OF 30% PEEP 5cmH2O POST HHN THERAPY TITRATED FIO2 TO 28% ARNULFO/RN NOTIFIED
[2022-01-31] MEDS: LEVOFLOXACIN 500 MG/D5W PREMIX 100 ML IV SCH (14:07)
[2022-01-31] MEDS: SODIUM FERRIC GLUCONATE 125 MG in NACL 0.9% 100 ML IV SCH (14:07)
[2022-01-31] MEDS: NACL 0.9% 2,000 ML IV SCH (14:30)
--- NOTE | 2022-01-31 15:03 | NUR ---
PHYSICAL THERAPY NOTE NO PHYSICAL THERAPY RENDERED. PATIENT IS INTUBATED. PHYSICAL THERAPY ON HOLD UNTIL PATIENT IS MEDICALLY CLEARED BY . XIMENA MADE AWARE.
[2022-01-31 15:06] LABS: FOLIC ACID 9.9 ng/mL (>3.0)
--- NOTE | 2022-01-31 15:09 | NUR ---
PHYSICAL THERAPY CO-SIGN The Physical Therapy Progress Notes documented by [employer] Actor have been reviewed. Reviewed/Co-Signed by: Es Camacho Documentation Done by:SHAD KUNZ PTA
--- NOTE | 2022-01-31 15:21 | NUR ---
01/31/22 RD INITIAL ASSESSMENT COMPLETED PLEASE REFER TO NUTRITION ASSESSMENT UNDER CARE ACTIVITY FOR ESTIMATED NUTRITIONAL NEEDS. 1. WHEN/IF MEDICALLY APPROPRIATE, RECOMMEND JEVITY 1.2 @ 50 ML/HR -FWF: 150 ML Q6H OR PER MD -START AT 20 ML/HR AND INCREASE BY 20 ML Q4H TOLERATED -WITH PROPOFOL, PT WILL RECEIVE 100% ESTIMATED KCAL AND 100% ESTIMATED PROTEIN NEEDS 2. MONITOR GI SYMPTOMS AND GASTRIC RESIDUALS 3. RD TO FOLLOW-UP 2-3 DAYS, HIGH RISK HOLLI UMANZOR RD
[2022-01-31] MEDS ORDERED: fentaNYL citrate 0.05 MG/ML VIAL ONE (15:25)
[2022-01-31] MEDS ORDERED: MIDAZOLAM 5 MG/5 ML VIAL ONE (15:25)
[2022-01-31] MEDS: SENNA 8.6 MG TAB PO SCH (16:33)
[2022-01-31] MEDS: DOCUSATE 100 MG/10 ML UDC GT PRN (16:33)
--- NOTE | 2022-01-31 17:00 | NUR ---
PT RESTING. RESPIRATIONS EVEN AND UNLABORED. WILL CONTINUE TO CLOSELY MONITOR.
[2022-01-31] MEDS ORDERED: MIDAZOLAM 2 MG/2 ML VIAL IVP ONE (17:35)
[2022-01-31] MEDS ORDERED: FUROSEMIDE 40 MG/4 ML VIAL IVP SCH (18:50)
--- NOTE | 2022-01-31 19:28 | NUR ---
ENDORSED BEDSIDE REPORT TO TAJ DRAPER RN FOR CONTINUITY OF CARE.
--- NOTE | 2022-01-31 19:30 | NUR ---
RECEIVED REPORT FROM DAY SHIFT NURSE, ASSUMED CARE. PT IN NO APPARENT ACUTE DISTRESS, SEDATED RASS-2, ETT TO VENT WITH SETTINGS AC/VC, FIO2 28%, VT 400, R 22, PEEP 5, O2 SAT 96%. BREATHING EVEN AND UNLABORED, BILATERAL WHEEZING LUNG SOUNDS. OG TUBE FEEDING IN PLACE RUNNING JEVITY 1.2 AT 20 ML/HR WITH 10 ML RESIDUAL. LAC MIDLINE IN PLACE, FLUSHED AND PATENT, INFUSING NS AT 70 MLS/HR, POTASSIUM CHLORIDE IN D5 AT 70 ML/HR, AND PROPOFOL AT 35 ML/HR. PACK CATHETER IN PLACE DRAINING TO GRAVITY. SKIN INTACT WITH NO OPEN WOUNDS NOTED. ALL SAFETY MEASURES IN PLACE, CALL LIGHT WITHIN REACH, BED LOCKED, WILL CONTINUE TO CLOSELY MONITOR AND FOLLOW POC.
[2022-01-31] MEDS: LACTULOSE 20 GM/30 ML UDC PO SCH (20:08)
--- NOTE | 2022-01-31 21:10 | NUR ---
OBSERVED PT WITHOUT LEFT WRIST RESTRAINTS AND PULLING ETT/OG TUBE OUT, RT WAS CALLED AND ARRIVED AT BEDSIDE TO REINSERT ETT TUBE. PT NOTED TO SATURATE IN 90%'S, STAT CHEST X-RAY ORDERED FOR TUBE PLACEMENT CONFIRMATION. PT IN NO APPARENT ACUTE DISTRESS NOTED.
--- NOTE | 2022-01-31 21:26 | NUR ---
2120 PATIENT PULLED ET TUBE OUT. PLACED TUBE BACK IN AT 22CM. PATIENT IS GETTING HER TIDAL VOLUMES. XRAY TOOK XRAY FOR PLACEMENT OF TUBE.
[2022-01-31] MEDS: ALBUTEROL SULFATE/IPRATROPIU 3 ML SOL IH PRN (21:34)
--- NOTE | 2022-01-31 21:35 | NUR ---
PATIENT GIVEN INLINE HHNTX DUE TO PATIENT WHEEZING AND SATS DROPPED TO 90% ON 28%. INCREASED FIO2 TO 40%
[2022-02-01] VITALS (30 sets, daily range): BP systolic 107–190; BP diastolic 55–124
[2022-02-01] MEDS: HYDROcodone/APAP 5/325 MG 1 TAB TAB PO PRN (00:07)
--- NOTE | 2022-02-01 00:10 | NUR ---
OBSERVED PT RESTLESS WITH FREQUENT LEG MOVEMENT, NODDED HER HEAD WHEN ASKED IF SHE WAS IN PAIN. ADMINISTERED NORCO PER PRN ORDERS. PT IN NO APPARENT ACUTE DISTRESS, 02 SAT 97%. WILL CONTINUE TO MONITOR AND REASSESS PAIN.
[2022-02-01] MEDS: PROPOFOL 1000 MG/100 ML PREMIX 100 ML IV PRN ×2 (00:41→04:09)
--- NOTE | 2022-02-01 02:30 | NUR ---
PT IN NO ACUTE DISTRESS, SEDATED APPEARS COMFORTABLE IN NO ACUTE DISTRESS. CONTINUES ON PROPOFOL DRIP. ETT TO VENT WIT FIO2 AT 30%. ALL SAFETY MEASURES IN PLACE, WILL CONTINUE TO CLOSELY MONITOR AND FOLLOW POC.
[2022-02-01] MEDS: ALBUTEROL SULFATE/IPRATROPIU 3 ML SOL IH PRN ×2 (03:45→15:19)
--- NOTE | 2022-02-01 04:00 | NUR ---
PT CONTINUES SEDATED WITH EYES CLOSED IN NO APPARENT ACUTE DISTRESS, FLACC 0. RT AT BEDSIDE ASSESSING PT. ALL SAFETY MEASURES IN PLACE, WILL CONTINUE TO CLOSELY MONITOR AND FOLLOW POC.
--- NOTE | 2022-02-01 04:30 | NUR ---
MORNING CARE PROVIDED, REPOSITIONED, PT TOLERATED WELL. NO SIGNS OF ACUTE DISTRESS, CONTINUES SEDATED, ETT TO VENT, FIO2 30%, O2 SAT 97%. OG TUBE IN PLACE WITH 0 RESIDUAL, INCREASED TUBE FEEDING TO 30 ML/HR. CONTINUES ON PROPOFOL AT 50 MCG/KG/HR, NS RUNNING AT 70 ML/HR. PT HAS NOT HAD BM THEREFORE OCCULT BLOOD TEST PENDING SPECIMEN COLLECTION. SKIN CONTINUES INTACT WITH NO OPEN WOUNDS OR REDNESS. ALL SAFETY MEASURES IN PLACE, WILL CONTINUE TO CLOSELY MONITOR AND FOLLOW POC.
[2022-02-01] MEDS: methylPREDNISolone SS 40 MG/ML VIAL IVP SCH ×3 (04:41→20:29)
[2022-02-01 05:03] LABS: ANION GAP 13.1 (8-16); CARBON DIOXIDE 30.9 mmol/L (21-32); CREATININE 1.3 mg/dL (0.6-1.3)
[2022-02-01 05:13] LABS: MAGNESIUM 3.6 mg/dL (1.8-2.4)
[2022-02-01 05:15] LABS: HEMATOCRIT 22.1 % (36-48); LYMPHOCYTES # (AUTO) 0.9 K/uL (2.5-16.5); LYMPHOCYTES % (AUTO) 4.2 % (20.5-51.1); MEAN CORPUSCULAR HEMOGLOBIN 23 pg (27-31); MEAN CORPUSCULAR HGB CONC 30 g/dL (33-37); MEAN CORPUSCULAR VOLUME 74.9 fL (80-94); MONOCYTES # (AUTO) 1.1 K/uL (0.8-1.0); MONOCYTES % (AUTO) 5.7 % (1.7-9.3); NEUTROPHILS # (AUTO) 18.1 K/uL (1.8-7.7); NEUTROPHILS % (AUTO) 90.1 % (42.2-75.2); PLATELET COUNT (AUTO) 533 K/uL (140-450); RED BLOOD CELL COUNT(AUTO) 2.95 MIL/uL (4.20-5.40); RED CELL DISTRIBUTION WIDTH 24.2 % (11.6-13.7); WHITE BLOOD COUNT (AUTO) 20.2 K/uL (4.8-10.8)
[2022-02-01 05:53] LABS: HEMOGLOBIN 6.7 g/dL (12.0-16.0)
--- NOTE | 2022-02-01 07:10 | NUR ---
BEDSIDE REPORT GIVEN TO DAY SHIFT NURSE, ENDORSED CARE. PT IN NO ACUTE DISTRESS.
--- NOTE | 2022-02-01 07:10 | NUR ---
Received report from Ludivina BUENO and assumed care of patient. Patient on ventilator ETT to vent, FiO2 30, Peep 5, TV 5, rate 22. Patient is NSR to sinus tach on the monitor. Propofol at 49.98 mg/kg/min, NS@ 70 infusing to midline at L AC. Midline site is patent, without signs of infection. Jevity 1.2 @ 30 ml/hr to OG. Patient has an existing urinary bowser that is draining clear yellow urine. Plan of care reviewed. Will follow plan and report any changes/abnormalities to MD.
[2022-02-01] MEDS: ALBUTEROL SULFATE/IPRATROPIU 3 ML SOL IH SCH ×4 (07:13→22:55)
--- NOTE | 2022-02-01 07:13 | NUR ---
RECEIVD ON A [employer] R860 VENTILATOR PLUGGED INTO RED OUTLET TOLERATING WELL WITHOUT ADVERSE REACTIONS NOTED TO AN ENDOTRACHEAL TUBE SECURED AT 22cm TEETH/GUM LINE WITH AN ANCHOR FAST AMBU BAG AT BEDSIDE SEDATED RESTING COMFORTABLY EQUAL CHEST RISE ENDOTRACHEAL SUCTION FOR MODERATE THIN YELLOW SECRETIONS AIRWAY PATENT
[2022-02-01] MEDS: BUDESONIDE 0.5 MG/2 ML NEBU INH SCH ×2 (07:45→19:31)
[2022-02-01] MEDS: PANTOPRAZOLE 40 MG INJ VIAL IVP SCH (08:54)
[2022-02-01] MEDS: DILTIAZEM 30 MG TAB PO SCH ×2 (08:55→20:29)
[2022-02-01] MEDS: ATORVASTATIN 20 MG TAB PO SCH (08:55)
[2022-02-01] MEDS: LACTULOSE 20 GM/30 ML UDC PO SCH (08:55)
[2022-02-01] MEDS: POLYETHYLENE GLYCOL 17 GM/PKT PO SCH ×2 (08:56→17:24)
[2022-02-01] MEDS: SENNA 8.6 MG TAB PO SCH ×3 (08:56→17:25)
--- NOTE | 2022-02-01 09:10 | NUR ---
[facility], no orders received. Patient resting comfortably in bed, with intermittent bouts of agitation. NSR to sinus tach on the monitor. Patient with good urine output via bowser catheter. Will continue to monitor.
--- NOTE | 2022-02-01 09:30 | NUR ---
Patient with 2 ml of residual from OG feeding. Jevity increased to 40 ml/hr.
--- NOTE | 2022-02-01 09:50 | NUR ---
PT'S FLOW WAS AT 35, WAS CHANGED TO 50 TO IMPROVE PAW WAVEFORM. WAVEFORM WAS IMPROVED. Rosalva SYKSE
--- NOTE | 2022-02-01 12:20 | NUR ---
Dr. Crawford at bedside. Per MD he will place order for KUB, if no obstruction orders to give Neostigmine as ordered.
[2022-02-01] MEDS ORDERED: NEOSTIGMINE 1:1000 10 MG/10 ML VIAL IV SCH (13:30)
--- NOTE | 2022-02-01 14:10 | NUR ---
Called and spoke to Dr. Crawford regarding KUB results. Per Dr. Crawford give the Neostigmine as ordered.
--- NOTE | 2022-02-01 14:30 | NUR ---
ON OR ABOUT THIS TIME DR. JAMAICA MCINTOSH IN ICU; PER Bandar MCCLELLAN/XIMENA GONZALEZ TO CHANGE HHN FREQUENCY TO Q4 HOURS; DESIGN DRAFTER CHIEF ACKNOWLEDGED
--- NOTE | 2022-02-01 14:30 | NUR ---
Dr. Duvall at bedside evaluating patient. Per Dr. Duvall, increase Duoneb q5 hrs, Versed 2 mg IVP q 3hr prn agitation.
--- NOTE | 2022-02-01 15:10 | NUR ---
Patient had a large dark brown/black loose/watery stool. Patient was cleansed, and bed linen and chux were changed. Patient suctioned for oral secretions, and has been suctioned regularly throughout the shift.
--- NOTE | 2022-02-01 15:20 | NUR ---
SEDATED GOOD CHEST RISE ENDOTRACHEAL SUCTION FOR SMALL THIN YELLOW SECRETIONS AIRWAY PATENT
[2022-02-01] MEDS: SODIUM FERRIC GLUCONATE 125 MG in NACL 0.9% 100 ML IV SCH (15:45)
[2022-02-01] MEDS: LEVOFLOXACIN 500 MG/D5W PREMIX 100 ML IV SCH (17:00)
--- NOTE | 2022-02-01 19:20 | NUR ---
1 unit PRBC started, double verified with Tamera BUENO. Unit # [id number]. Blood form initialed.
--- NOTE | 2022-02-01 19:30 | NUR ---
Report endorsed to Diane RN to transfer care of patient and end my care and shift warm, hand off at bedside. Patient resting comfortably in bed, NSR to sinus tach on the monitor. No signs of acute distress noted. Diane RN was advised blood was started at 1920 and will require VS check by 1934. Diane verbalized understanding. Patient with blood infusing at 100 ml/hr, Propofol at 50.
--- NOTE | 2022-02-01 19:30 | NUR ---
REPORT RECEIVED FROM FELISA BUENO, FOR CONTINUITY OF CARE. PATIENT CURRENTLY RESTING IN BED IN SUPINE WITH BED AT 45 DEGREES AND APPEARS TO NOT BE IN DISTRESS/PAIN AT THIS TIME. INTUBATED VIA ET TUBE VENT SETTINGS ARE FOLLOWS: ACVC FIO2 30% TV 400 R 22 PEEP 5. LUNGS SOUND CRACKLES IN ENTIRE RIGHT LOBE WITH DIMINISHED ON LEFT LOBE. CURRENT VITAL SIGNS ARE FOLLOWS: B/P: 169/74 P:103 RR:25 O2: 96% AND SINUS TACHYCARDIA ON MONITOR. PATIENT HAS AN OG TUBE INFUSING JEVITY 1.2 40ML/HR. PACK CATHETER PRESENT AND PATENT WITH 50 ML OF CLEAR YELLOW URINE IN DRAINAGE BAG. BOWEL SOUNDS ACTIVE WITH LAST BM 4 HOURS AGO. ACCESS INCLUDES ONE LEFT AC MIDLINE INFUSING PRBCs AT 100ML/HR. PATIENT NOT EXPERIENCING TRANSFUSION RELATED REACTIONS.
--- NOTE | 2022-02-01 20:10 | NUR ---
ADJUSTED PTS VENT SETTINGS BASED ON PTS CURRENT BREATHING - PT FOLLOWING COMMANDS DESPITE SEDATION LEVEL.
[2022-02-01] MEDS: ZOLPIDEM 5 MG TAB PO PRN (20:29)
[2022-02-01] MEDS: hydrALAZINE 20 MG/ML VIAL IVP PRN (21:10)
[2022-02-01] MEDS: hydrALAZINE 20 MG/ML VIAL ONE ×2 (21:10→21:36)
--- NOTE | 2022-02-01 21:20 | NUR ---
PATIENT HAVING ABNORMALLY HIGH BLOOD PRESSURE READINGS. CURRENT BP 170/104. DR. LOMBARDI IV THERAPY NURSE MD NOTIFIED. ORDERS RECEIVED AND PATIENT PROVIDED WITH IV HYDRALAZINE 10MG. PRN ORDER PLACED PER MD ORDERS. WILL CONTINUE TO MONITOR.
--- NOTE | 2022-02-01 21:40 | NUR ---
JESICA RT AT BESIDE ASSESSING PATIENT.
--- NOTE | 2022-02-01 22:45 | NUR ---
BLOOD TRANSFUSION COMPLETE. CURRENT VITAL SIGNS TEMP: 98.1 PULSE: 103 RESP: 28 B/P:159/79. PATIENT EXPERIENCED NO ADVERSE REACTIONS TO BLOOD TRANSFUSION.
[2022-02-02] VITALS (26 sets, daily range): BP systolic 126–178; BP diastolic 63–98
[2022-02-02] MEDS: ALBUTEROL SULFATE/IPRATROPIU 3 ML SOL IH SCH ×4 (03:28→15:00)
[2022-02-02] MEDS: methylPREDNISolone SS 40 MG/ML VIAL IVP SCH ×3 (04:30→20:02)
[2022-02-02 05:54] LABS: HEMATOCRIT 28.8 % (36-48); LYMPHOCYTES # (AUTO) 0.8 K/uL (2.5-16.5); LYMPHOCYTES % (AUTO) 4.3 % (20.5-51.1); MEAN CORPUSCULAR HEMOGLOBIN 24 pg (27-31); MEAN CORPUSCULAR HGB CONC 31 g/dL (33-37); MEAN CORPUSCULAR VOLUME 77.4 fL (80-94); MONOCYTES # (AUTO) 1.1 K/uL (0.8-1.0); MONOCYTES % (AUTO) 6.3 % (1.7-9.3); NEUTROPHILS # (AUTO) 15.7 K/uL (1.8-7.7); NEUTROPHILS % (AUTO) 89.4 % (42.2-75.2); PLATELET COUNT (AUTO) 510 K/uL (140-450); RED BLOOD CELL COUNT(AUTO) 3.72 MIL/uL (4.20-5.40); RED CELL DISTRIBUTION WIDTH 23.6 % (11.6-13.7); WHITE BLOOD COUNT (AUTO) 17.6 K/uL (4.8-10.8)
[2022-02-02 06:13] LABS: ANION GAP 11.6 (8-16); CARBON DIOXIDE 29.6 mmol/L (21-32); CREATININE 0.7 mg/dL (0.6-1.3); POTASSIUM 4.2 mmol/L (3.5-5.1)
[2022-02-02 06:18] LABS: PHOSPHORUS 4.3 mg/dL (2.5-4.9)
--- NOTE | 2022-02-02 07:09 | NUR ---
REPORT GIVEN TO RAMON BUENO FOR CONTINUITY OF CARE
--- NOTE | 2022-02-02 07:15 | NUR ---
Received pt awake and alert, able to make needs known by gestures and nods. See pain assessment. On ETT with vent settings AC PRVC VT 400 rate 20 PEEP 5 FIO2 @ 30%. OG tube intact and infusing Jevity 1.2 @40ml/hr with water flush at 100 Q4hr. Sinus rhythm on monitor. Abd soft with active bowel sounds. Toussaint catheter in place draining yellow urine to BSD. SCD in place. Soft wrist restraints on. Midline to MINDY intact and patent infusing NS @ 30ML/HR and Propofol @ 60mcg/kg/min. Safety precautions in place.
[2022-02-02] MEDS: hydrALAZINE 20 MG/ML VIAL IVP PRN ×3 (07:27→17:42)
[2022-02-02] MEDS: HYDROcodone/APAP 5/325 MG 1 TAB TAB PO PRN ×2 (07:28→20:03)
--- NOTE | 2022-02-02 07:30 | NUR ---
RN AND CHARGE NURSE MADE AWARE OF WEANING PARAMETERS.
--- NOTE | 2022-02-02 07:30 | NUR ---
PT PLACED ON SPONTANEOUS VENTILATION AT 0730 PER WEANING PROTOCOL. INITIAL REACTION IS STABLE. WILL F/U.
[2022-02-02] MEDS: BUDESONIDE 0.5 MG/2 ML NEBU INH SCH (08:17)
[2022-02-02] MEDS: NACL 0.9% 2,000 ML IV SCH (08:45)
[2022-02-02] MEDS: PANTOPRAZOLE 40 MG INJ VIAL IVP SCH (08:46)
[2022-02-02] MEDS: DILTIAZEM 30 MG TAB PO SCH ×2 (08:47→20:03)
[2022-02-02] MEDS: ATORVASTATIN 20 MG TAB PO SCH (08:48)
[2022-02-02] MEDS: POLYETHYLENE GLYCOL 17 GM/PKT PO SCH ×3 (08:49→20:02)
[2022-02-02] MEDS: SENNA 8.6 MG TAB PO SCH ×3 (08:50→16:14)
--- NOTE | 2022-02-02 09:11 | NUR ---
Seen and examined by Dr. Lujan.
[2022-02-02] MEDS: PROPOFOL 1000 MG/100 ML PREMIX 100 ML IV PRN ×5 (10:41→22:56)
--- NOTE | 2022-02-02 12:00 | NUR ---
Seen and examined by Dr. Duvall. Per Dr. Duvall, continue with intubation and start precedex tomorrow.
--- NOTE | 2022-02-02 12:13 | NUR ---
Dr. Crawford at bedside examining pt.
--- NOTE | 2022-02-02 12:35 | NUR ---
PT PLACED BACK ON CPAP PER DR. MCINTOSH. PT TO RESUME WEANING PARAMETERS TOMORROW, 02-03-22. NO ADVERSE REACTIONS TO PRVC MODE. PT APPEARS AGITATED, I EXPLAINED THE PROCESS AND REASSURED HER WITH MINIMAL SUCCESS.
--- NOTE | 2022-02-02 12:43 | NUR ---
Dr. Zamora at bedside examining pt.
[2022-02-02] MEDS ORDERED: FUROSEMIDE 40 MG/4 ML VIAL IVP SCH (13:00)
[2022-02-02] MEDS: LEVOFLOXACIN 500 MG/D5W PREMIX 100 ML IV SCH (13:01)
[2022-02-02] MEDS ORDERED: NEOSTIGMINE 1:1000 10 MG/10 ML VIAL IV SCH (14:00)
--- NOTE | 2022-02-02 14:00 | NUR ---
PT HAD ONE MEDIUM BROWN/BLACK LOOSE STOOL. PROVIDED PERICARE. SUCTIONED PT. TURNED AND REPOSITIONED. HOB ELEVATED. SAFETY PRECAUTIONS IN PLACE.
[2022-02-02] MEDS: MIDAZOLAM 2 MG/2 ML VIAL IV PRN (14:18)
[2022-02-02] MEDS: SODIUM FERRIC GLUCONATE 125 MG in NACL 0.9% 100 ML IV SCH (14:27)
--- NOTE | 2022-02-02 16:00 | NUR ---
OG-TUBE HELD PER DR. AMOS D/T COLONOSCOPY TOMORROW.
--- NOTE | 2022-02-02 18:15 | NUR ---
PT HAD A LARGE BROWN/BLACK LOOSE STOOL. PERICARE AND PACK CARE PROVIDED. KEPT CLEAN AND DRY. TURNED AND REPOSITIONED. SAFETY PRECAUTIONS IN PLACE.
--- NOTE | 2022-02-02 19:16 | NUR ---
Endorsed to maintenance supervisor 2nd shift nurse Ludivina for continuity of care.
--- NOTE | 2022-02-02 19:30 | NUR ---
RECEIVED BEDSIDE REPORT FROM DAY SHIFT NURSE, ASSUMED CARE. PT IN NO APPARENT ACUTE DISTRESS, SEDATED RASS-2, ETT TO VENT WITH SETTINGS AC/PRVC, FIO2 30%, VT 400, R 20, PEEP 5, O2 SAT 98%. BREATHING EVEN AND UNLABORED, BILATERAL WHEEZING LUNG SOUNDS UPON AUSCULTATION. OG TUBE IN PLACE WITH TUBE FEEDINGS CURRENTLY ON HOLD FOR SCHEDULED COLONOSCOPY PROCEDURE. L AC MIDLINE IN PLACE, FLUSHED AND PATENT, INFUSING NS AT 30 MLS/HR AND PROPOFOL AT 60 ML/HR. PACK CATHETER IN PLACE DRAINING TO GRAVITY WITH CLEAR YELLOW URINE. SKIN INTACT WITH NO OPEN WOUNDS NOTED, EDEMA NOTED ON R EXTREMITY. LARGE LIQUID DARK BROWN/BLACK STOOL NOTED, PT CHANGED AND REPOSITIONED FOR COMFORT. ORAL VAP CARE RENDERED. ALL SAFETY MEASURES IN PLACE, CALL LIGHT WITHIN REACH & BED LOCKED. WILL CONTINUE TO CLOSELY MONITOR AND FOLLOW POC.
--- NOTE | 2022-02-02 20:05 | NUR ---
OBSERVED PT RESTLESS, PT NODDED HEAD WHEN ASKED IF SHE WAS IN PAIN. ADMINISTERED NORCO PER PRN ORDERS. PT IN NO ACUTE DISTRESS. WILL CONTINUE TO CLOSELY MONITOR AND REASSESS PAIN.
[2022-02-03] VITALS (33 sets, daily range): BP systolic 111–178; BP diastolic 57–95
--- NOTE | 2022-02-03 00:18 | NUR ---
PT CONTINUES SEDATED WITH EYES CLOSED RASS-2 ON PROPOFOL DRIP AT 60 MCG/KG/HR. ETT TO VENT CONTINUES AT FIO2 30%, 02 SAT 98%. NO SIGNS OF ACUTE DISTRESS NOTED, FLACC 0. ALL SAFETY MEASURES IN PLACE, WILL CONTINUE TO CLOSELY MONITOR AND FOLLOW POC.
[2022-02-03] MEDS: hydrALAZINE 20 MG/ML VIAL IVP PRN ×2 (00:46→01:50)
[2022-02-03] MEDS: HYDROcodone/APAP 5/325 MG 1 TAB TAB PO PRN (00:46)
--- NOTE | 2022-02-03 01:50 | NUR ---
ADMINISTERED HYDRALAZINE PER PRN ORDERS FOR ELEVATED SPB ABOVE 160. PT'S CURRENT SBP ABOVE 170. WILL REASSESS PER PROTOCOL. PT IN NO APPARENT ACUTE DISTRESS.
[2022-02-03] MEDS: PROPOFOL 1000 MG/100 ML PREMIX 100 ML IV PRN ×5 (02:21→21:10)
[2022-02-03] MEDS: ALBUTEROL SULFATE/IPRATROPIU 3 ML SOL IH PRN ×3 (03:20→15:40)
--- NOTE | 2022-02-03 04:30 | NUR ---
MORNING CARE PROVIDED. PT HAD 3 LARGE LIQUID BLACK BOWEL MOVEMENTS DURING AM CARE. PT CLEANED AND REPOSITIONED FOR COMFORT. ORAL VAP CARE RENDERED. SKIN REMAINS INTACT WITH NO OPEN WOUNDS. CURRENT TEMP 99.0 THEREFORE COOLING MEASURES IN PLACE. PT CONTINUES SEDATED RASS -2 WITH NO SIGNS OF ACUTE DISTRESS, ETT TO VENT WITH SETTINGS AT AC/PRVC, VT 400, R 20, PEEP 5, FIO2 30%. CURRENTLY INFUSING PROPOFOL AT 60 MCG/KG/HR. ALL SAFETY MEASURES IN PLACE. WILL CONTINUE TO CLOSELY MONITOR AND FOLLOW POC.
[2022-02-03] MEDS: methylPREDNISolone SS 40 MG/ML VIAL IVP SCH ×2 (05:00→20:50)
[2022-02-03] MEDS ORDERED: NEOSTIGMINE 1:1000 10 MG/10 ML VIAL IV SCH (06:00)
--- NOTE | 2022-02-03 07:19 | NUR ---
REPORT GIVEN TO DAY SHIFT NURSE, ENDORSED CARE. PT IN NO APPARENT ACUTE DISTRESS.
--- NOTE | 2022-02-03 07:19 | NUR ---
RECEIVED BEDSIDE REPORT FROM TAJ DRAPER RN FOR CONTINUITY OF CARE. PT SEDATED, RASS -2, SUPINE IN THE BED. EYES CLOSED, PERRL. ETT TO VENT, ACPRVC, FIO2 28%, VT 400, PEEP 5, R 22. SR ON THE MONITOR. INCONTINENT OF BOWEL, LIQUID STOOL PER NIGHT NURSE. F/C TO GRAVITY. MIDLINE TO MINDY, PATENT INTACT, INFUSING PROPOFOL AT 60 MCG/KG/MIN, NS AT 30 ML/HR. SKIN INTACT. GENERALIZED WEAKNESS. STANDARD PRECAUTIONS IN PLACE. ALL SAFETY PRECAUTIONS MET. CALL LIGHT WITHIN REACH. INITIAL ASSESSMENT COMPLETE, WILL CONTINUE TO CLOSELY MONITOR. Addendum: 02/03/22 at 0756 by Sandra Florian RN RECEIVED BEDSIDE REPORT FROM TAJ DRAPER RN FOR CONTINUITY OF CARE. PT SEDATED, RASS -2, SUPINE IN THE BED. EYES CLOSED, PERRL. ETT TO VENT, ACPRVC, FIO2 28%, VT 400, PEEP 5, R 22. SR ON THE MONITOR. OGT IN PLACE, PATENT, CLAMPED, NPO FOR COLONOSCOPY TODAY. JEVITY AT BEDSIDE. INCONTINENT OF BOWEL, LIQUID STOOL PER NIGHT NURSE. F/C TO GRAVITY. MIDLINE TO MINDY, PATENT INTACT, INFUSING PROPOFOL AT 60 MCG/KG/MIN, NS AT 30 ML/HR. SKIN INTACT. GENERALIZED WEAKNESS. STANDARD PRECAUTIONS IN PLACE. ALL SAFETY PRECAUTIONS MET. CALL LIGHT WITHIN REACH. INITIAL ASSESSMENT COMPLETE, WILL CONTINUE TO CLOSELY MONITOR.
[2022-02-03] MEDS: ALBUTEROL 0.083% 2.5 MG/3 ML NEBU INH SCH ×3 (07:22→19:30)
--- NOTE | 2022-02-03 07:24 | NUR ---
RECEIVED ON A [employer] R860 VENTILATOR PLUGGED INTO RED OUTLET TOLERATING WELL WITHOUT NO DOCUMENTATION ON RATE DECREASE NOTED ON FLOW SHEET 04/03/2022 1900 HRS CHANGED RATE BACK TO 22 BPM REVIEWED ABG ON 01/30/2022 AT 1051 SEDATED EASILY AWAKENS EVEN ON PROPOFOL SEDATION AT 65mcg RESTING WELL NO DISTRESS NOTED GOOD CHEST RISE ENDOTRACHEAL SUCTION FOR SMALL SEMI THICK YELLOW SECRETIONS AIRWAY PATENT SATURATION 98% ON FIO2 OF 30% PEEP 5cmH2O POST HHN THERAPY TITRATED FIO2 TO 28% NAOMI/RN NOTIFIED
[2022-02-03] MEDS: DILTIAZEM 30 MG TAB PO SCH ×2 (08:19→20:47)
[2022-02-03] MEDS: ATORVASTATIN 20 MG TAB PO SCH (08:19)
[2022-02-03] MEDS: PANTOPRAZOLE 40 MG INJ VIAL IVP SCH (08:20)
[2022-02-03] MEDS: DEXMEDETOMIDINE HCL 400 MCG in NACL 0.9% 96 ML IV PRN ×3 (08:30→21:50)
--- NOTE | 2022-02-03 08:50 | NUR ---
SEEN AND EXAMINED BY DR CHOU.
--- NOTE | 2022-02-03 08:53 | NUR ---
SEEN AND EXAMINED BY DR DEAN
--- NOTE | 2022-02-03 08:53 | NUR ---
SEEN AND EXAMINED BY DR MCINTOSH
[2022-02-03] MEDS: SENNA 8.6 MG TAB PO SCH ×2 (09:00→20:51)
[2022-02-03] MEDS: POLYETHYLENE GLYCOL 17 GM/PKT PO SCH (09:00)
--- NOTE | 2022-02-03 09:40 | NUR ---
XRAY AT BEDSIDE
--- NOTE | 2022-02-03 10:38 | NUR ---
RESTING COMFORTABLY GOOD CHEST RISE ENDOTRACHEAL SUCTION FOR SMALL THIN YELLOW SECRETIONS AIRWAY PATENT
--- NOTE | 2022-02-03 11:05 | NUR ---
RECEIVED PHONE CALL FROM DR AMOS. [place] FOR COLONOSCOPY TODAY.
--- NOTE | 2022-02-03 11:30 | NUR ---
SCREEN FOR LOW MARITZA SCALE AT RISK, CONTINUE TO FOLLOW PRESSURE ULCER PREVENTION INTERVENTIONS. -TURN AND REPOSITION PATIENT Q 2H, ASSIST IF NEEDED -ASSESS AND MONITOR SKIN CONDITION DURING POSITION CHANGES -OFFLOAD BILATERAL HEELS BY PLACING PILLOWS UNDER CALVES AT ALL TIMES, UNLESS OTHERWISE CONTRAINDICATED -PRESSURE REDISTRIBUTION BY PLACING PILLOWS AND OFFLOADING SACRALCOCCYX -KEEP SKIN CLEAN AND DRY AT ALL TIMES.
--- NOTE | 2022-02-03 11:30 | NUR ---
PLACED ON CPAP TRAILS NOTED TOLERATING WELL WITHOUT COMPLICATIONS NOTED GOOD CHEST RISE NAOMI/HELMET HAT BRIM CUTTER NOTIFIED
[2022-02-03] MEDS ORDERED: diphenhydrAMINE 50 MG/ML VIAL ONE (11:56)
[2022-02-03] MEDS ORDERED: fentaNYL citrate 0.05 MG/ML VIAL ONE (11:56)
[2022-02-03] MEDS ORDERED: MIDAZOLAM 5 MG/5 ML VIAL ONE (11:57)
--- NOTE | 2022-02-03 12:25 | NUR ---
ON OR ABOUT THIS TIME MODE CHANGED TO [facility] BY Abhi PRECIADO RCP FOR COLONOSCOPY PROCEDURE; DR. AMOS ATTENDING
--- NOTE | 2022-02-03 12:35 | NUR ---
DR AMOS AT BEDSIDE FOR COLONOSCOPY.
[2022-02-03] MEDS: MIDAZOLAM 2 MG/2 ML VIAL IVP ONE ×2 (12:37→14:10)
[2022-02-03] MEDS: fentaNYL citrate 0.05 MG/ML VIAL IVP ONE ×2 (12:38→14:10)
--- NOTE | 2022-02-03 13:15 | NUR ---
SEEN AND EXAMINED BY DR CORONA.
--- NOTE | 2022-02-03 13:55 | NUR ---
SEDATED RESTING COMFORTABLY GOOD CHEST RISE ENDOTRACHEAL SUCTION FOR SMALL THIN YELLOW SECRETIONS AIRWAY PATENT
[2022-02-03] MEDS: LEVOFLOXACIN 500 MG/D5W PREMIX 100 ML IV SCH (14:14)
--- NOTE | 2022-02-03 14:30 | NUR ---
PICC LINE RN AT BEDSIDE
[2022-02-03 15:37] LABS: BASOPHILS % (AUTO) 0.1 % (0.0-2.0); HEMATOCRIT 29.7 % (36-48); HEMOGLOBIN 9.1 g/dL (12.0-16.0); LYMPHOCYTES # (AUTO) 0.4 K/uL (2.5-16.5); LYMPHOCYTES % (AUTO) 2.7 % (20.5-51.1); MEAN CORPUSCULAR HEMOGLOBIN 24 pg (27-31); MEAN CORPUSCULAR HGB CONC 31 g/dL (33-37); MEAN CORPUSCULAR VOLUME 79.1 fL (80-94); MONOCYTES # (AUTO) 1.1 K/uL (0.8-1.0); MONOCYTES % (AUTO) 7.9 % (1.7-9.3); NEUTROPHILS # (AUTO) 12.6 K/uL (1.8-7.7); NEUTROPHILS % (AUTO) 89.3 % (42.2-75.2); PLATELET COUNT (AUTO) 463 K/uL (140-450); RED BLOOD CELL COUNT(AUTO) 3.75 MIL/uL (4.20-5.40); RED CELL DISTRIBUTION WIDTH 24.8 % (11.6-13.7); WHITE BLOOD COUNT (AUTO) 14.1 K/uL (4.8-10.8)
--- NOTE | 2022-02-03 15:44 | NUR ---
02/03/22 RD FOLLOW UP COMPLETED. PLEASE REFER TO NUTRITION ASSESSMENT UNDER CARE ACTIVITY FOR ESTIMATED NUTRITIONAL NEEDS. 1. WHEN/IF MEDICALLY APPROPRIATE TO RESUME TF, CONTINUE JEVITY 1.2 @ 50 ML/HR -FWF: 150 ML Q6H OR PER MD -START AT 20 ML/HR AND INCREASE BY 20 ML Q4H TOLERATED 2. IF PT REMAINS ON PROPOFOL AT CURRENT RATE OF 32.45ML/HR, RECOMMEND JEVITY 1.2 @ 30ML/HR WITH PROSOURCE BID -FWF: 250ML Q6H OR PER MD -WITH PROSOURCE AND PROPOFOL, PT WILL RECEIVE 100% ESTIMATED KCAL AND PROTEIN NEEDS. 3. MONITOR GI SYMPTOMS AND GASTRIC RESIDUALS 4. RD TO FOLLOW-UP 2-3 DAYS, HIGH RISK JILL CAUSEY RD
[2022-02-03 15:47] LABS: ANION GAP 10.1 (8-16); CARBON DIOXIDE 29.6 mmol/L (21-32); CREATININE 0.7 mg/dL (0.6-1.3); POTASSIUM 3.7 mmol/L (3.5-5.1)
[2022-02-03 15:51] LABS: MAGNESIUM 2.6 mg/dL (1.8-2.4); PHOSPHORUS 4.7 mg/dL (2.5-4.9)
--- NOTE | 2022-02-03 15:53 | NUR ---
SEDATED EASILY AWAKENS PLACED CPAP TRIAL NOTED TOLERATING WELL WITHOUT COMPLICATIONS NOTED MELISSA/SCENE PAINTER NOTIFIED
--- NOTE | 2022-02-03 17:11 | NUR ---
SEDATED EQUAL CHEST RISE TOLERATING CPAP TRIAL WITH NO APPARENT DISTRESS NOTED
--- NOTE | 2022-02-03 19:05 | NUR ---
ENDORSED BEDSIDE REPORT TO NARAYAN DRAPER RN FOR CONTINUITY OF CARE
--- NOTE | 2022-02-03 20:05 | NUR ---
RECEIVED PT. AND INTIAL ASSESMENT COMPLETED. PT. LUNG SOUNDS WHEEZING. ON ETT CPAP, FIO2 30%, TV 400 AND PEEP 5 WITH O2 SAT 96%. R.T. AT THE BEDSIDE AND CHANGED VENT SETTING TO A/C PRVC, FIO2 30%, TV 400 AND PEEP 5. IV TO LEFT ARM PICC LINE, CONTINUE ON PROPOFOL DRIP 30MCG/KG/MIN, PRECEDEX 0.4 MCG/KG/HR AND NS AT 30 ML/HR. PT. WITH ORAL GASTRIC TUBE, CHECKED GASTRIC RESIDUAL 30ML, STARTED ON JEVITY 1.2. PACK CATHETER DRAINING TO GRAVITY WITH CLEAR YELLOW URINE. PLACED IN COMFORTABLE POSITION. PROVIDE A SAFE AND QUIET ENVIRONMENT. WILL CONT. TO MONITOR
--- NOTE | 2022-02-03 20:21 | NUR ---
1929 PLACED PATIENT BACK ON PRVC RR 22 VT 400 FIO2 30%. PEEP5. PATIENT SEEMS RESTLESS. SXNED PT SMALL AMT CLEAR SECRETIONS. HHN INLINE TX GIVEN WITH 2.5MG ALBUTEROL
--- NOTE | 2022-02-03 21:19 | NUR ---
PT. SISTER MAURY CALLED AND PROVIDED UPDATE WITH PT.CONDITION. PT. CONT. ON ETT AND SEDATION DRIP. PT. COMFORTABLE AT HIS TIME.
[2022-02-03] MEDS ORDERED: DEXMEDETOMIDINE HCL 100 MCG/ML 2 ML VIAL IV ONE (21:38)
[2022-02-04] VITALS (28 sets, daily range): BP systolic 105–173; BP diastolic 62–96
[2022-02-04] MEDS: ALBUTEROL 0.083% 2.5 MG/3 ML NEBU INH SCH ×5 (01:17→22:56)
--- NOTE | 2022-02-04 01:46 | NUR ---
PT. CONT. ON PROPOFOL DRIP, TRITRATED DOWN TO 25 MCG/KG/MIN AND 20MCG/KG/MIN NOW. PT. SLEEPING AT THIS TIME AND ABLE TO MOVE HER LEFT LOWER EXTREMITY WHEN STIMULATED. PRECEDEX DRIP 0.4 MCG/KG/HR AND TOLERATING WELL. OGT FEEDING TURNED OFF AT THIS TIME WITH OGT RESIDUAL OF 180 ML CREAMY THICK FLUID. WILL CONTINUE TO MONITOR.
--- NOTE | 2022-02-04 02:02 | NUR ---
PT. ON ETT AND CONT. ON BILATERAL WRIST RESTRAINT PER MD ORDERED. WILL CONTINUE TO MONITOR.
[2022-02-04] MEDS ORDERED: DEXMEDETOMIDINE HCL 100 MCG/ML 2 ML VIAL IV ONE (03:12)
[2022-02-04] MEDS: DEXMEDETOMIDINE HCL 400 MCG in NACL 0.9% 96 ML IV PRN ×3 (03:35→12:00)
[2022-02-04] MEDS: hydrALAZINE 20 MG/ML VIAL IVP PRN (03:54)
[2022-02-04] MEDS: PROPOFOL 1000 MG/100 ML PREMIX 100 ML IV PRN (04:04)
--- NOTE | 2022-02-04 04:41 | NUR ---
PT. PROVIDED PERSONAL CARE AND TOLERATED WELL. GASTRIC RESIDUAL AT THIS TIME IS 120 ML, FEEDING STILL ON HOLD. PT. GIVEN HYDRALAZINE 10MG IVP PRN FOR SBP GREATER THAN 160. PLEASE SEE V/S. GIVEN AT 0354 AND EFFECTIVE, BP AT THIS TIME 141/69, HR 81, R 15, O2 SAT 98%. WILL CONT. TO MONITOR.
--- NOTE | 2022-02-04 07:10 | NUR ---
RECEIVED ON A [employer] R860 VENTILATOR PLUGGED INTO RED OUTLET TOLERATING WELL WITHOUT ADVERSE REACTIONS NOTED TO AN ENDOTRACHEAL TUBE #7.5 SECURED AT 22cm TEETH/GUM LINE WITH AN ANCHOR FAST CUFF PRESSURE CHECKED NOTED AMBU BAG AT BEDSIDE SEDATED EASILY AWAKENS STABLE GOOD CHEST RISE ENDOTRACHEAL SUCTION FOR SMALL THIN YELLOW SECRETIONS AIRWAY PATENT
--- NOTE | 2022-02-04 07:10 | NUR ---
RECEIVED BEDSIDE REPORT FROM NARAYAN DRAPER RN FOR CONTINUITY OF CARE. PT SEDATED, RASS -2, SUPINE IN THE BED. EYES CLOSED, PERRLA. ETT TO VENT, ACPRVC, FIO2 30%, VT 400, PEEP 5, R 22. SR ON THE MONITOR. OGT IN PLACE, PATENT, TUBE FEEDING HELD FOR HIGH RESIDUALS PER NIGHT NURSE. JEVITY AT BEDSIDE. INCONTINENT OF BOWEL. F/C TO GRAVITY. PICC LINE TO MINDY, PATENT INTACT, INFUSING PROPOFOL AT 20 MCG/KG/MIN, NS TKO AT 5 ML/HR. SKIN INTACT. GENERALIZED WEAKNESS. STANDARD PRECAUTIONS IN PLACE. ALL SAFETY PRECAUTIONS MET. CALL LIGHT WITHIN REACH. INITIAL ASSESSMENT COMPLETE, WILL CONTINUE TO CLOSELY MONITOR.
[2022-02-04] MEDS: FERROUS SULFATE 300 MG/5 ML UDC GT SCH (08:27)
[2022-02-04] MEDS: methylPREDNISolone SS 40 MG/ML VIAL IVP SCH ×2 (08:27→21:33)
[2022-02-04] MEDS: DILTIAZEM 30 MG TAB PO SCH ×2 (08:28→21:33)
[2022-02-04] MEDS: APIXABAN 2.5 MG TAB PO SCH ×2 (08:29→21:35)
[2022-02-04] MEDS: ATORVASTATIN 20 MG TAB PO SCH (08:30)
[2022-02-04] MEDS: POLYETHYLENE GLYCOL 17 GM/PKT PO SCH (08:43)
--- NOTE | 2022-02-04 08:48 | NUR ---
SEEN AND EXAMINED BY DR CHOU.
[2022-02-04 09:09] LABS: HEMATOCRIT 31.3 % (36-48); HEMOGLOBIN 9.7 g/dL (12.0-16.0); MEAN CORPUSCULAR HEMOGLOBIN 25 pg (27-31); MEAN CORPUSCULAR HGB CONC 31 g/dL (33-37); MEAN CORPUSCULAR VOLUME 79.6 fL (80-94); PLATELET COUNT (AUTO) 439 K/uL (140-450); RED BLOOD CELL COUNT(AUTO) 3.92 MIL/uL (4.20-5.40); RED CELL DISTRIBUTION WIDTH 24.6 % (11.6-13.7); WHITE BLOOD COUNT (AUTO) 12.9 K/uL (4.8-10.8)
[2022-02-04 09:12] LABS: ALBUMIN 3.1 g/dL (3.4-5.0); ANION GAP 13.8 (8-16); CARBON DIOXIDE 27.2 mmol/L (21-32); CREATININE 0.7 mg/dL (0.6-1.3); TOTAL BILIRUBIN 0.6 mg/dL (0.0-1.0)
--- NOTE | 2022-02-04 09:20 | NUR ---
SEDATED EASILY AWAKENS GOOD CHEST RISE PLACED ON CPAP TRIALS NOTED MELISSA/RN BONE MARROW TRANSPLANT NOTIFIED ENDOTRACHEAL TUBE SUCTION FOR SMALL THIN YELLOW SECRETIONS OROPHARYNGEAL SUCTION FOR MODERATE THIN YELLOW SECRETIONS AIRWAY PATENT Addendum: 02/04/22 at 1059 by Horacio Coronel RT MELISSA/RN BONE MARROW TRANSPLANT NOTIFIED
[2022-02-04] MEDS: ALBUTEROL SULFATE/IPRATROPIU 3 ML SOL IH PRN ×3 (09:24→17:39)
[2022-02-04 09:40] LABS: LYMPHOCYTES % (MANUAL) 3 % (20-46); MONOCYTES % (MANUAL) 11 % (5-12)
--- NOTE | 2022-02-04 11:59 | NUR ---
SEDATED RESTING COMFORTABLY GOOD CHEST RISE TOLERATING CPAP TRIAL WITHOUT COMPLICATIONS NOTED AIRWAY PATENT
--- NOTE | 2022-02-04 12:00 | NUR ---
INCORRECT WEIGHT NOTED ON PRECEDEX PUMP. CORRECTED WEIGHT, PRECEDEX INFUSING AT SAME RATE NOTED IN EMAR.
--- NOTE | 2022-02-04 12:31 | NUR ---
DR. JAMAICA MCINTOSH AT BEDSIDE REVIEWED PATIENT LOC, PULMONARY STATUS, CPAP TRIAL AND DIAGNOSTIC READINGS VORTOD MCINTOSH: ABG IF RESULTS GOOD EXTUBATE PATIENT; CHANGE HHN FREQUUENCY TO Q4; BIPAP NOCS 06/18 R14 30%
--- NOTE | 2022-02-04 12:38 | NUR ---
SEEN AND EXAMINED BY DR MCINTOSH. ORDERS RECEIVED.
--- NOTE | 2022-02-04 12:40 | NUR ---
TOLERATING CPAP TRIALS APPROXIMATELY 3.5 HOURS STABLE NO DISTRESS NOTED GOOD CHEST RISE
--- NOTE | 2022-02-04 13:15 | NUR ---
PT EXTUBATED BY SULEMAN DICKERSON PER DR ARNALDO TESFAYE.
--- NOTE | 2022-02-04 13:15 | NUR ---
EDUCATION PROVIDED ON EXTUBATION PROCEDURE; TWO MINUTE 100% FIO2 INITIATED VIA VENTILATOR; ENDOTRACHEAL SUCTION FOR SMALL THIN YELLOW SECRETIONS; OROPHARYNGEAL SUCTION FOR LARGE THIN YELLOW SECRETIONS; AIRWAY PATENT; DEFLATED CUFF PRESS SETTER BALLOON FLAT; INSTRUCTED PATIENT TO TAKE DEEP BREATH WHILE EXTUBATING ENDOTRACHEAL TUBE AND OROGASTRIC TUBE SIMULTANEOUSLY; PLACED PATIENT ON A COOL AEROSOL TO ADULT MASK AT 28%/7 LPM; TOLERATED EXTUBATION PROCEDURE WELL WITHOUT ADVERSE REACTIONS NOTED
--- NOTE | 2022-02-04 13:20 | NUR ---
COURTESY TEXT TO DR. JAMAICA MCINTOSH VIA [facility]; ABG RESULTS ON CPAP TRIAL; EXTUBATION PROCEDURE; ALL OTHER ORDERS CARRIED OUT NOTED AT 1231
[2022-02-04] MEDS ORDERED: MORPHINE SULFATE 2 MG/ML SYR ONE (14:37)
[2022-02-04] MEDS: ONDANSETRON 4 MG/2 ML VIAL IM/IVP PRN (14:48)
[2022-02-04] MEDS: MORPHINE SULFATE 2 MG/ML SYR IVP PRN ×2 (14:49→19:36)
--- NOTE | 2022-02-04 16:40 | NUR ---
PT CLEANED AND REPOSITIONED. NO STOOL NOTED. CLOUDY HEMATURIA NOTED IN PACK. TEXTED DR CHOU. DR ORDERED REPEAT UA AND CULTURE.
--- NOTE | 2022-02-04 17:00 | NUR ---
PT HAVING SOB, AUDIBLE WHEEZES AND GRUNTING. SPO2 94%. CALLED SULEMAN DICKERSON TO BEDSIDE.
[2022-02-04] MEDS ORDERED: RACEPINEPHRINE 2.25% 13.5 MG/0.5 ML NEBU INH SCH (17:15)
--- NOTE | 2022-02-04 17:21 | NUR ---
XRAY AT BEDSIDE
--- NOTE | 2022-02-04 17:30 | NUR ---
PT NOW ON BIPAP, PLACED BY SULEMAN DICKERSON. PT TOLERATING WELL. WILL CONTINUE TO CLOSELY MONITOR.
[2022-02-04 19:09] LABS: APPEARANCE,URINE CLEAR (CLEAR); BILIRUBIN,URINE NEGATIVE (NEGATIVE); BLOOD, URINE 3+ (NEGATIVE); COLOR,URINE YELLOW (YELLOW); LEUKOCYTE ESTERASE ,URINE NEGATIVE (NEGATIVE); NITRITE, URINE NEGATIVE (NEGATIVE); PH,URINE 5.5 (5.0-9.0); UGLUCOSE 1+ (NEGATIVE)
--- NOTE | 2022-02-04 19:10 | NUR ---
PT ON BIPAP. 06/19, RR16, 30%. NO DISTRESS NOTED. TOLERATED BREATHING TREATMENT WELL.
--- NOTE | 2022-02-04 19:15 | NUR ---
ENDORSED BEDSIDE REPORT TO NARAYAN DRAPER RN FOR CONTINUITY OF CARE.
--- NOTE | 2022-02-04 19:30 | NUR ---
RECEIVED REPORT FROM DAY SHIFT RN. PT. WIDE AWAKE, ORIENTED TO NAME AND PLACE. LUNGS SOUNDS WHEEZING DURING INSPIRATORY BREATHING. CONT. ON BIPAP 16, FIO2 30%, I-10, E-6. IV TO LEFT AC PICC LINE WITH RUNNING NS TKO. IV SITE PATENT AND INTACT. ABDOMEN SOFT, ROUNDED, NON TENDER AND WITH DISTANT BOWEL SOUNDS. ABLE TO MOVE ALL EXTREMITIES. BED PLACED IN THE LOWEST HEIGHT. PLACE IN COMFORTABLE POSITION. PROVIDED SAFE AND QUIET ENVIRONMENT. MAKE ALL NEEDS KNOWN. WILL CONTINUE TO MONITOR.
[2022-02-04 20:00] LABS: RBC,URINE TOO NUMEROUS TO COUN /HPF (0-5); WBC,URINE 0-5 /HPF (0-5)
--- NOTE | 2022-02-04 20:24 | NUR ---
SPEECH THERAPY AT THE BEDSIDE FOR SWALLOWING EVAL AND RT AT THE BEDSIDE.
--- NOTE | 2022-02-04 20:30 | NUR ---
PT. SWALLOW EVAL. NEEDS FURTHER MORE EVALUATION PER THERAPIST AND NEED RE-EVAL TOMORROW. WILL ENDORSE TO THE NEXT SHIFT.
[2022-02-04] MEDS: SENNA 8.6 MG TAB PO SCH (21:36)
[2022-02-04] MEDS: ZOLPIDEM 5 MG TAB PO PRN (23:04)
[2022-02-05] VITALS (33 sets, daily range): BP systolic 101–213; BP diastolic 47–162
[2022-02-05] MEDS: MIDAZOLAM 2 MG/2 ML VIAL IV PRN (01:06)
[2022-02-05] MEDS: ALBUTEROL 0.083% 2.5 MG/3 ML NEBU INH SCH ×5 (02:47→18:52)
[2022-02-05] MEDS ORDERED: MORPHINE SULFATE 2 MG/ML SYR IVP ONE (03:10)
--- NOTE | 2022-02-05 03:13 | NUR ---
PT. IS WIDE AWAKE AT THIS TIME AND AGITATED, HR GREATER THAN 120, SBP GREATER THAN 160. PT. WANTS TO REMOVE THE BIPAP. EXPLAINING TO PT. REASON FOR HER HAVING A BIPAP. BUT PT. STILL STRONGLY RESIST AND WANTS BIPAP OUT. CALLED R.T. TO ADJUST BIPAP. R.T.CAME AT THE BEDSIDE, BUT PT. STILL WANT BIPAP TO BE REMOVED. LISSA MARKETING TECHNOLOGIST NURSE TEXTED DR. LUNA AND NEW ORDER GIVEN FOR MORPHINE 2 MG IVP NOW X1, IF NOT EFFECTIVE SEROQUEL 50MG PO X 1.
[2022-02-05] MEDS: hydrALAZINE 20 MG/ML VIAL IVP PRN ×2 (04:24→23:33)
--- NOTE | 2022-02-05 04:31 | NUR ---
PHONE CALL TO DR CORONA,RN BUILDING, MADE AWARE PTS MONITOR IS SHOWING AFIB, HR 130'S TO 150'S BP AT THIS TIME 212/130 AFTER BEING RECHECKED.PHYSICIAN ALSO AWARE THAT HYDRALAZINE PRN ORDER WAS ALREADY ADMINISTERED.DR CORONA SAID NOT TO ORDER EKG BUT START PT ON AMIODARONE DRIP.ALSO NOTIFIED DR CORONA REGARDING BLOODY URINE,ALREADY IRRIGATED, TO HOLD ELIQUIS UNTIL FURTHER ORDER
[2022-02-05] MEDS ORDERED: AMIODARONE 150 MG in DEXTROSE 5% 100 ML IV ONE (04:45)
[2022-02-05] MEDS ORDERED: AMIODARONE 150 MG/3 ML VIAL IV ONE (04:45)
[2022-02-05] MEDS ORDERED: AMIODARONE 450 MG/9 ML VIAL IV ONE (04:45)
[2022-02-05] MEDS: AMIODARONE 450 MG in DEXTROSE 5% 250 ML IV SCH ×2 (04:55→12:00)
--- NOTE | 2022-02-05 05:00 | NUR ---
AMIODARONE LOADING DOSE ADMINISTERED PER PROTOCOL THEN AMIODARONE DRIP STARTED.STILL AFIB NOTED ON MONITOR.WILL CONTINUE TO CLOSELY MONITOR PT
[2022-02-05] MEDS ORDERED: QUEtiapine FUMARATE 25 MG TAB PO ONE (05:25)
--- NOTE | 2022-02-05 07:05 | NUR ---
RECEIVED BEDSIDE REPORT FROM NARAYAN DRAPER RN FOR CONTINUITY OF CARE. AAOX1, PERRLA. ON BIPAP, FIO2 30%, R 16, IPAP 10, EPAP 5. SOB NOTED WITH ACCESSORY MUSCLE USE. AFIB ON BEDSIDE MONITOR. BP 169/92. BOWEL SOUNDS ACTIVE, INCONTINENT OF BOWEL. PT COMPLAINS OF ABD PAIN, TENDERNESS, GUARDING. F/C TO GRAVITY, HEMATURIA NOTED. MINDY PICC IN PLACE, PATENT, GOOD BLOOD RETURN, INFUSING AMIODARONE AT 1MG/MIN, AND NS TKO AT 5 ML/HR. GENERALIZED WEAKNESS. SKIN INTACT. STANDARD PRECAUTIONS IN PLACE. INITIAL ASSESSMENT COMPLETE. WILL CONTINUE TO CLOSELY MONITOR.
--- NOTE | 2022-02-05 07:12 | NUR ---
REPORT GIVEN TO DAY SHIFT RN FOR CONTINUITY OF CARE.
[2022-02-05] MEDS ORDERED: DEXMEDETOMIDINE HCL 400 MCG in NACL 0.9% 96 ML IV PRN (07:45)
--- NOTE | 2022-02-05 07:45 | NUR ---
SEEN AND EXAMINED BY DR WILKINS. RECEIVED ORDERS. ORDERED ABG. WILL REPORT FINDINGS TO
[2022-02-05] MEDS: methylPREDNISolone SS 40 MG/ML VIAL IVP SCH ×2 (07:58→20:19)
--- NOTE | 2022-02-05 07:59 | NUR ---
DR WILKINS ORDERED TO ADMIN SCHEDULED SOLUMEDROL NOW INSTEAD OF 0900. SEE EMAR.
--- NOTE | 2022-02-05 08:00 | NUR ---
SEEN AND EXAMINED BY DR DEAN. ORDERED CONTINUOUS BLADDER IRRIGATION.
[2022-02-05 08:06] LABS: LYMPHOCYTES # (AUTO) 0.5 K/uL (2.5-16.5); MONOCYTES # (AUTO) 1.6 K/uL (0.8-1.0)
[2022-02-05 08:14] LABS: BASOPHILS % (AUTO) 0.2 % (0.0-2.0); HEMATOCRIT 32.7 % (36-48); LYMPHOCYTES % (AUTO) 1.9 % (20.5-51.1); MEAN CORPUSCULAR HEMOGLOBIN 25 pg (27-31); MEAN CORPUSCULAR HGB CONC 31 g/dL (33-37); MEAN CORPUSCULAR VOLUME 81.1 fL (80-94); MONOCYTES % (AUTO) 6.5 % (1.7-9.3); NEUTROPHILS # (AUTO) 22.8 K/uL (1.8-7.7); NEUTROPHILS % (AUTO) 91.4 % (42.2-75.2); PLATELET COUNT (AUTO) 415 K/uL (140-450); RED BLOOD CELL COUNT(AUTO) 4.03 MIL/uL (4.20-5.40); RED CELL DISTRIBUTION WIDTH 25.3 % (11.6-13.7); WHITE BLOOD COUNT (AUTO) 24.9 K/uL (4.8-10.8)
[2022-02-05 08:21] LABS: ALBUMIN 3.3 g/dL (3.4-5.0); ANION GAP 8.4 (8-16); CARBON DIOXIDE 31.8 mmol/L (21-32); CREATININE 0.6 mg/dL (0.6-1.3); MAGNESIUM 2.4 mg/dL (1.8-2.4); POTASSIUM 4.2 mmol/L (3.5-5.1); TOTAL BILIRUBIN 0.7 mg/dL (0.0-1.0)
[2022-02-05] MEDS: LABETALOL 100 MG/20 ML VIAL IV PRN ×2 (08:26→20:21)
[2022-02-05] MEDS: ONDANSETRON 4 MG/2 ML VIAL IM/IVP PRN (08:27)
--- NOTE | 2022-02-05 08:30 | NUR ---
PT REQUESTS TO BE INTUBATED. PT TIRED FROM WORK OF BREATHING. DR WILKINS AND NATALY NOTIFIED.
--- NOTE | 2022-02-05 08:35 | NUR ---
SPOKE WITH RT ABOUT REINTUBATION. NOTIFIED DR MCINTOSH VIA TELEPHONE TO NOTIFY THAT PT WILL BE REINTUBATED.
--- NOTE | 2022-02-05 08:45 | NUR ---
LEFT A MESSAGE WITH MAURY, PT SISTER, TO NOTIFY PT WILL BE REINTUBATED.
--- NOTE | 2022-02-05 09:54 | NUR ---
PT. WITH LOW MARITZA SCALE AT MODERATE TO HIGH RISK, CONTINUE TO FOLLOW PRESSURE INJURY PREVENTION INTERVENTIONS. -POSITIONING: TURN AND REPOSITION PATIENT Q 2H OR SOONER USE PILLOWS TO KEEP BONY PROMINENCES FROM DIRECT CONTACT WITH SURFACES USE REPOSITIONING WEDGES TO PROVIDE 30-DEGREE ANGLE FOR SIDE LYING POSITIONS OFFLOADING OR FOAM DRESSING TO ALL TUBING TO PREVENT MEDICAL DEVICES RELATED PRESSURE INJURY -RE-EVALUATING AND MANAGING INCONTINENCE MONITOR SKIN CONDITION DURING POSITION CHANGE DO NOT MASSAGE REDNESS, BONY PROMINENCES FREQUENT CARMINE-CARE AND PROVIDE BARRIER CREAMS PRN IF SOILING MOISTURE CONTROL BY OFFER BED ZEE/URINAL /ABSORBENT PAD TO WICK AND HOLD MOISTURE KEEP SKIN DRY AND PROTECT FROM FRICTION -MANAGE FRICTION/SHEAR/MOBILITY KEEP HOB AT THE LOWEST LEVEL OF ELEVATION NO MORE THAN 30 DEGREE UNLESS OTHERWISE CONTRAINDICATED USE LIFT SHEET OR TRANSFER DEVICE TO MOVE PATIENT AND PREVENT LATERAL SHEER. PROTECT HEELS, ELBOWS BONY PROMINENCES WITH SKIN BERRIES OR FOAM DRESSING IF EXPOSED TO FRICTION OFFLOAD BILATERAL HEELS BY PLACING PILLOWS UNDER CALVES AT ALL TIMES, UNLESS OTHERWISE CONTRAINDICATED -PRESSURE REDISTRIBUTION SURFACE THERAPY SPIKE ISOFLEX MATTRESS -NUTRITION: PLEASE FOLLOW RD RECOMMENDATIONS AND OFFER NUTRITION SUPPLEMENTS IF ORDERED. PLEASE CONTACT WOUND CARE NURSE FOR ANY QUESTION AND CHANGE OF WOUND CONDITION.
--- NOTE | 2022-02-05 10:30 | NUR ---
MAURY CALLED BACK. UPDATED REGARDING PT CONDITION. ALL QUESTIONS ANSWERED AT THIS TIME.
--- NOTE | 2022-02-05 10:56 | NUR ---
TEXTED DR WILKINS ABOUT ABD XRAY RESULTS. WAITING FOR ORDERS.
--- NOTE | 2022-02-05 11:18 | NUR ---
DR WILKINS TEXTED BACK, ORDERED REGLAN AND DULCOLAX SUPPOSITORY.
[2022-02-05] MEDS ORDERED: METOCLOPRAMIDE 10 MG/2 ML INJ VIAL IVP SCH (11:25)
[2022-02-05] MEDS: bisacodyL 10 MG SUPP RC SCH (11:44)
--- NOTE | 2022-02-05 11:45 | NUR ---
DC PACK. INSERTED 3W PACK FOR CONTINUOUS BLADDER IRRIGATION ORDERED BY DR DEAN.
--- NOTE | 2022-02-05 12:20 | NUR ---
SEEN AND EXAMINED BY DR MCINTOSH. DR ORDERED TO INTUBATE PT. RT AWARE. FAMILY AWARE.
[2022-02-05] MEDS ORDERED: ETOMIDATE 20 MG/10 ML VIAL IVP ONE (12:33)
--- NOTE | 2022-02-05 12:33 | NUR ---
10 MG ETOMIDATE IN PER DR MCINTOSH ORDER.
[2022-02-05] MEDS ORDERED: ROCURONIUM 50 MG/5 ML VIAL IV ONE (12:34)
--- NOTE | 2022-02-05 12:34 | NUR ---
50 MG ROCURONIUM IN PER DR MCINTOSH ORDER.
[2022-02-05] MEDS ORDERED: PROPOFOL 1000 MG/100 ML PREMIX 100 ML IV ONE (12:37)
--- NOTE | 2022-02-05 12:37 | NUR ---
PT INTUBATED BY DR MCINTOSH. 03.18, 23 @ TEETH.
[2022-02-05] MEDS: PROPOFOL 1000 MG/100 ML PREMIX 100 ML IV PRN ×3 (12:40→22:40)
--- NOTE | 2022-02-05 12:40 | NUR ---
PROPOFOL HANGING AND INFUSING AT 5 MCG/KG/MIN. WILL CONTINUE TO CLOSELY MONITOR AND TITRATE PER PROTOCOL. SEE IV SPREADSHEET.
--- NOTE | 2022-02-05 12:45 | NUR ---
PT INTUBATED WITH A 7.5 ETT SECURED @23 TEETH/GUM ON VENT. SETTINGS ORDERED BY AC 20, VT 450, PEEP 5cmH2O AND FIO2 60%. ETT PLACEMENT CONFIRMED WITH CO2 DETECTOR AND BILATERAL BREATH SOUNDS. CXR TO BE ORDERED. AND ABG TO BE OBTAINED. VENT ALARMS ON AND FUNCTIONING.
--- NOTE | 2022-02-05 12:50 | NUR ---
NGT IN ORDERED.
--- NOTE | 2022-02-05 12:56 | NUR ---
SEEN AND EXAMINED BY DR CORONA.
--- NOTE | 2022-02-05 13:00 | NUR ---
XRAY AT BEDSIDE
[2022-02-05] MEDS: FERROUS SULFATE 300 MG/5 ML UDC GT SCH (13:27)
[2022-02-05] MEDS: DILTIAZEM 30 MG TAB PO SCH ×2 (13:27→20:20)
[2022-02-05] MEDS: ATORVASTATIN 20 MG TAB PO SCH (13:27)
[2022-02-05] MEDS: DOCUSATE 100 MG/10 ML UDC GT PRN (13:27)
[2022-02-05] MEDS: POLYETHYLENE GLYCOL 17 GM/PKT PO SCH (13:28)
--- NOTE | 2022-02-05 13:42 | NUR ---
02/05/22 RD FOLLOW UP COMPLETED PLEASE REFER TO NUTRITION ASSESSMENT UNDER CARE ACTIVITY FOR ESTIMATED NUTRITIONAL NEEDS. 1. WHEN/IF MEDICALLY APPROPRIATE, RECOMMEND GLUCERNA WITH A GOAL RATE OF 50 ML/HR -FWF: 150 ML Q6H OR PER MD -START AT 20 ML/HR AND INCREASE BY 20 ML Q4H TOLERATED -WITH PROPOFOL, PT WILL RECEIVE 100% OF ESTIMATED NUTRITIONAL NEEDS 2. MONITOR NUTRITION-RELATED LAB VALUES 3. RD TO FOLLOW-UP 2-3 DAYS, HIGH RISK HOLLI UMANZOR RD
[2022-02-05] MEDS: PIPERACILLIN/TAZOBACTAM 3.375 GM in DEXTROSE 5% 50 ML IV SCH ×2 (14:24→20:18)
--- NOTE | 2022-02-05 15:00 | NUR ---
PT RESTING, RESPIRATIONS EVEN AND UNLABORED. WILL CONTINUE TO CLOSELY MONITOR.
--- NOTE | 2022-02-05 18:15 | NUR ---
PT CLEANED AND REPOSITIONED. S SOFT BROWN STOOL NOTED.
--- NOTE | 2022-02-05 19:17 | NUR ---
ENDORSED BEDSIDE REPORT TO TAJ DRAPER RN FOR CONTINUITY OF CARE.
--- NOTE | 2022-02-05 19:30 | NUR ---
RECEIVED BEDSIDE REPORT FROM DAY SHIFT NURSE, ASSUMED CARE. PT IN NO APPARENT ACUTE DISTRESS, SEDATED RASS-2, ETT TO VENT WITH SETTINGS AC/VC FIO2 40%, VT 450, R 20, PEEP 5, O2 SAT 100%. BREATHING EVEN AND UNLABORED, BILATERAL WHEEZING LUNG SOUNDS UPON AUSCULTATION. NG TUBE TO R NARES IN PLACE WITH CONTINUOUS TUBE FEEDING GLUCERNA AT 20 ML/HR WITH 0 RESIDUAL. MINDY PICCL LINE IN PLACE, FLUSHED AND PATENT, INFUSING PROPOFOL AT 60 MCG/KG/HR AND AMIODARONE AT 0.5 MG/MIN. THREE WAY PACK CATHETER IN PLACE WITH CONTINUOUS IRRIGATION SYSTEM IN PLACE, WITH CLEAR YELLOW URINE. SKIN NON-INTACT WITH CLOSED PRESSURE WOUND TO LEFT BUTTOCK. SMALL SOFT DARK BROWN/BLACK STOOL NOTED, PT CHANGED AND REPOSITIONED FOR COMFORT. BILATERAL SOFT WRIST RESTRAINTS IN PLACE WITH NO VISIBLE SIGNS OF INJURY. ORAL VAP CARE RENDERED. ALL SAFETY MEASURES IN PLACE, CALL LIGHT WITHIN REACH & BED LOCKED. WILL CONTINUE TO CLOSELY MONITOR AND FOLLOW POC.
[2022-02-05] MEDS: SENNA 8.6 MG TAB PO SCH (20:20)
--- NOTE | 2022-02-05 20:21 | NUR ---
NOTED PT TO HAVE ELEVATED SBP OF OVER 170, ADMINISTERED LABETALOL PER PRN ORDERS FOR ELEVATED BP. PT IN NO APPARENT ACUTE DISTRESS NOTED. WILL CONTINUE TO CLOSELY MONITOR AND REASSESS.
[2022-02-05] MEDS: MORPHINE SULFATE 2 MG/ML SYR IVP PRN (21:34)
--- NOTE | 2022-02-05 21:34 | NUR ---
OBSERVED PT TO BE RESTLESS, PT NODDED WHEN ASKED IF SHE WAS IN PAIN. ADMINISTERED MORPHINE PER PRN ORDERS FOR PAIN. PT IN NO APPARENT ACUTE DISTRESS AT THE MOMENT, WILL CONTINUE TO CLOSELY MONITOR AND REASSESS PAIN.
--- NOTE | 2022-02-05 23:33 | NUR ---
NOTED PT TO CONTINUE TO HAVE ELEVATED SBP ABOVE 170, ADMINISTERED HYDRALAZINE PER PRN ORDERS FOR ELEVATED BP. PT IN NO APPARENT ACUTE DISTRESS. WILL CONTINUE TO CLOSELY MONITOR AND FOLLOW POC.
[2022-02-06] VITALS (31 sets, daily range): BP systolic 117–194; BP diastolic 64–104
[2022-02-06] MEDS: ALBUTEROL 0.083% 2.5 MG/3 ML NEBU INH SCH ×6 (00:12→19:00)
[2022-02-06] MEDS: PROPOFOL 1000 MG/100 ML PREMIX 100 ML IV PRN ×6 (01:06→23:10)
--- NOTE | 2022-02-06 03:12 | NUR ---
PT CONTINUES SEDATED RASS -3 WITH EYES CLOSED IN NO APPARENT ACUTE DISTRESS. CONTINUES VENTILATED ETT TO VENT ON ACVC SETTINGS WITH FIO2 AT 35% AND O2 SAT 99% WITH EVEN CHEST EXPANSION NON-LABORED BREATHING. COOLING MEASURES IN PLACE DUE TO TEMP OF 99.4. CONTINUES ON PROPOFOL DRIP AT 60 MCG/KG/HR AND AMIODARONE DRIP AT 0.5 MG/MIN. BILATERAL SOFT WRIST RESTRAINTS IN PLACE WITH NO SINGS OF INJURY OR REDNESS ON WRISTS. ALL SAFETY MEASURES IN PLACE, WILL CONTINUE TO CLOSELY MONITOR AND FOLLOW POC.
[2022-02-06] MEDS: PIPERACILLIN/TAZOBACTAM 3.375 GM in DEXTROSE 5% 50 ML IV SCH ×3 (04:05→20:39)
[2022-02-06] MEDS: ALBUTEROL SULFATE/IPRATROPIU 3 ML SOL IH PRN (04:31)
[2022-02-06] MEDS: MORPHINE SULFATE 2 MG/ML SYR IVP PRN ×2 (04:34→14:42)
--- NOTE | 2022-02-06 04:59 | NUR ---
AMIODARONE DRIP D/C. PT IN NO ACUTE DISTRESS.
[2022-02-06 06:12] LABS: BASOPHILS % (AUTO) 0.1 % (0.0-2.0); HEMATOCRIT 33.5 % (36-48); HEMOGLOBIN 10.2 g/dL (12.0-16.0); LYMPHOCYTES # (AUTO) 0.6 K/uL (2.5-16.5); LYMPHOCYTES % (AUTO) 3.1 % (20.5-51.1); MEAN CORPUSCULAR HEMOGLOBIN 25 pg (27-31); MEAN CORPUSCULAR HGB CONC 31 g/dL (33-37); MEAN CORPUSCULAR VOLUME 82.6 fL (80-94); MONOCYTES # (AUTO) 1.1 K/uL (0.8-1.0); MONOCYTES % (AUTO) 5.7 % (1.7-9.3); NEUTROPHILS # (AUTO) 18.1 K/uL (1.8-7.7); NEUTROPHILS % (AUTO) 91.1 % (42.2-75.2); PLATELET COUNT (AUTO) 357 K/uL (140-450); RED BLOOD CELL COUNT(AUTO) 4.05 MIL/uL (4.20-5.40); RED CELL DISTRIBUTION WIDTH 29.7 % (11.6-13.7); WHITE BLOOD COUNT (AUTO) 19.9 K/uL (4.8-10.8)
[2022-02-06] MEDS: LABETALOL 100 MG/20 ML VIAL IV PRN ×2 (06:36→10:32)
--- NOTE | 2022-02-06 06:39 | NUR ---
LABETALOL ADMINISTERED PER PRN ORDERS DUE TO ELEVATED BP OF 178/93, PT IN NO APPARENT ACUTE DISTRESS. WILL CONTINUE TO CLOSELY MONITOR.
[2022-02-06 06:52] LABS: ALBUMIN 3.2 g/dL (3.4-5.0); ANION GAP 11.4 (8-16); CARBON DIOXIDE 29.9 mmol/L (21-32); CREATININE 0.7 mg/dL (0.6-1.3); MAGNESIUM 2.4 mg/dL (1.8-2.4); PHOSPHORUS 3.3 mg/dL (2.5-4.9); POTASSIUM 4.3 mmol/L (3.5-5.1); TOTAL BILIRUBIN 0.9 mg/dL (0.0-1.0)
--- NOTE | 2022-02-06 07:16 | NUR ---
BEDSIDE REPORT GIVEN TO DAY SHIFT NURSE, ENDORSED CARE. PT IN NO ACUTE DISTRESS.
--- NOTE | 2022-02-06 07:20 | NUR ---
RECEIVED PT AWAKE, ABLE TO USE GESTURES TO MAKE NEEDS KNOW. ET TUBE TO VENT SETTINGS AC VC VT 450 RATE 20 PEEP 5 FIO2 @ 30%. BREATHING EVEN AND UNLABORED. SINUS RHYTHM ON MONITOR. BOWEL SOUNDS ACTIVE X4 QUAD. PACK CATHETER DRAINING TO BSD. PICC LINE ON MINDY DOUBLE LUMEN INTACT AND INFUSING NS @ TKO AND PROPOFOL @ 60MCG/KG/MIN. KEPT CLEAN DRY AND COMFORTABLE. SAFETY PRECAUTIONS IN PLACE.
--- NOTE | 2022-02-06 07:30 | NUR ---
SEEN AND EXAMINED BY DR. WILKINS. REPORTED CLEAR URINE WITH NO HEMATURIA. PER DR. WILKINS, STOP IRRIGATION TO [address] PACK CATHETER AND REPORT IF ANY CHANGES IN URINE.
--- NOTE | 2022-02-06 08:00 | NUR ---
SEEN AND EXAMINED BY DR. MARTINEZ. NO NEW ORDERS AT THIS TIME.
[2022-02-06] MEDS: FERROUS SULFATE 300 MG/5 ML UDC GT SCH (08:08)
[2022-02-06] MEDS: methylPREDNISolone SS 40 MG/ML VIAL IVP SCH ×2 (08:09→20:38)
[2022-02-06] MEDS: POLYETHYLENE GLYCOL 17 GM/PKT PO SCH (08:09)
[2022-02-06] MEDS: DILTIAZEM 30 MG TAB PO SCH (08:09)
[2022-02-06] MEDS: ATORVASTATIN 20 MG TAB PO SCH (08:09)
[2022-02-06] MEDS: MIDAZOLAM 2 MG/2 ML VIAL IV PRN ×2 (08:10→12:21)
[2022-02-06] MEDS: hydrALAZINE 20 MG/ML VIAL IVP PRN ×3 (08:28→23:22)
[2022-02-06] MEDS: AMIODARONE 200 MG TAB GT SCH ×2 (08:28→20:39)
--- NOTE | 2022-02-06 08:51 | NUR ---
RECOMMENDED A NEW TF GOAL RATE OF 30 ML/HR WITH PROSOURCE TF TID D/T PT WITH PROPOFOL @ 30 ML/HR. WITH PROPOFOL @ 30 ML/HR, PT WILL RECEIVE 100% ESTIMATED NUTRITIONAL NEEDS. RD WILL CONTINUE TO MONITOR. HOLLI UMANZOR RD
--- NOTE | 2022-02-06 09:00 | NUR ---
SEEN AND EXAMINED BY DR. WADE.
--- NOTE | 2022-02-06 10:15 | NUR ---
RT AT BEDSIDE.
[2022-02-06] MEDS: bisacodyL 10 MG SUPP RC SCH (10:32)
--- NOTE | 2022-02-06 12:25 | NUR ---
SEEN AND EXAMINED BY DR. CORONA. REPORTED HIGH BLOOD PRESSURE READINGS. NEW ORDERS RECEIVED. Addendum: 02/06/22 at 1250 by Laurel Puga RN REPORTED NORMAL SINUS RHYTHM WITH PAC.
[2022-02-06] MEDS ORDERED: amLODIPine 5 MG TAB PO SCH (12:35)
--- NOTE | 2022-02-06 13:38 | NUR ---
DC PLANNING PATIENT IS A 66 YR OLD FEMALE ADMITTED FROM [facility] , COPD EXACERBATION, ACUTE RESP.DISTRESS. VIOLETTE OUTREACHED TO ASSISTED LIVING FACILITY TO GATHER COLLATERAL INFORMATION, PATIENT IS INTUBATED. VIOLETTE SPOKE WITH CHARLES ([place] ADMIN)WHO REPORTED TAHT PATIENT HAD BEEN AT ASSISTED LIVING FACILITY ([facility]) SINCE 06/18/21. PATIENTS EMERGENCY CONTACT AND DPOA IS MAURY PAREDES ([place]) [phone]. CHARLES REPORTS THAT PATIENT IS STANDBY ASSIST WITH DRESSING, SHOWERING, TOILETING, AND MEALS, WITH MILD TO MODERATE DIRECTION.ADMIN REPORTS PATIENTS LEVEL OF FX IS SEMI-INDEPENDENT. ADMIN REPORTS [facility] ASSIST WITH RX DISTRIBUTION. TENTATIVE PLAN IS FOR PATIENT TO RETURN TO [facility] WHEN MEDICALLY CLEARED.
--- NOTE | 2022-02-06 14:05 | NUR ---
SEEN AND EXAMINED BY DR. MCINTOSH. NO NEW ORDERS AT THIS TIME.
--- NOTE | 2022-02-06 16:15 | NUR ---
RT AT BEDSIDE.
--- NOTE | 2022-02-06 18:15 | NUR ---
INFORMED DR. WILKINS REGARDING ELEVATED HEART RATE. PER DR. WILKINS, PAGE DR. CORONA AND GET EKG.
--- NOTE | 2022-02-06 18:48 | NUR ---
CONTACTED DR. CORONA REGARDING PT'S ELEVATED HEART RATE BETWEEN 120-145. INFORMED HIM PT IS SINUS TACH. RECEIVED ORDERS TO D/C NORVASC AND LISINOPRIL AND TO START CARVEDILOL 6.25 MG BID.
--- NOTE | 2022-02-06 19:30 | NUR ---
ENDORSED TO REGISTERED PHARMACIST NURSE TAJ FOR CONTINUITY OF CARE.
--- NOTE | 2022-02-06 19:30 | NUR ---
RECEIVED BEDSIDE REPORT FROM DAY SHIFT NURSE, ASSUMED CARE. PT IN NO APPARENT ACUTE DISTRESS, SEDATED RASS-3, ETT TO VENT WITH SETTINGS AC/VC FIO2 30%, VT 450, R 20, PEEP 5, O2 SAT 98%. BREATHING EVEN AND UNLABORED, BILATERAL WHEEZING LUNG SOUNDS UPON AUSCULTATION. NG TUBE TO R NARES IN PLACE WITH TUBE FEEDING ON HOLD DUE TO HIGH RESIDUAL OF 120 ML. MINDY PICC LINE IN PLACE, FLUSHED AND PATENT, INFUSING PROPOFOL AT 60 MCG/KG/HR. THREE WAY PACK CATHETER IN PLACE CURRENTLY CLAMPED WITH DARK JOSE URINE. SKIN NON-INTACT WITH CLOSED PRESSURE WOUND TO LEFT BUTTOCK. BILATERAL SOFT WRIST RESTRAINTS IN PLACE WITH NO VISIBLE SIGNS OF INJURY. ORAL VAP CARE RENDERED. ALL SAFETY MEASURES IN PLACE, CALL LIGHT WITHIN REACH & BED LOCKED. WILL CONTINUE TO CLOSELY MONITOR AND FOLLOW POC.
[2022-02-06] MEDS ORDERED: carvediloL 6.25 MG TAB ONE (19:31)
[2022-02-06] MEDS ORDERED: LEVALBUTEROL 0.63 MG/3 ML NEBU INH PRN (19:35)
[2022-02-06] MEDS: SENNA 8.6 MG TAB PO SCH (20:38)
[2022-02-06] MEDS: carvediloL 6.25 MG TAB NG SCH (20:39)
[2022-02-06] MEDS ORDERED: lisinopriL 10 MG TAB PO SCH (21:00)
--- NOTE | 2022-02-06 21:50 | NUR ---
CONTACTED DR. CORONA REGARDING ELEVATED HR OF 145 AFTER ADMINISTERING SCHEDULED COREG DOSE. NEW ORDERS RECEIVED TO RESTART PT ON AMIODARONE DRIP PER PROTOCOL. NEW ORDERS CARRIED OUT. PT IN NO ACUTE DISTRESS NOTED.
[2022-02-06] MEDS ORDERED: AMIODARONE 450 MG/9 ML VIAL IV ONE (21:59)
[2022-02-06] MEDS ORDERED: AMIODARONE 150 MG/3 ML VIAL IV ONE (21:59)
[2022-02-06] MEDS ORDERED: AMIODARONE 450 MG in DEXTROSE 5% 250 ML IV SCH (22:45)
[2022-02-07] VITALS (34 sets, daily range): BP systolic 139–173; BP diastolic 61–84
--- NOTE | 2022-02-07 | NUR ---
PT IN NO APPARENT ACUTE DISTRESS, SR ON MONITOR, CONTINUES ON AMIODARONE DRIP AT 1MG/MIN AND PROPOFOL AT 60 MCG/KG/HR. ALL SAFETY MEASURES IN PLACE, WILL CONTINUE TO CLOSELY MONITOR AND FOLLOW POC.
--- NOTE | 2022-02-07 00:40 | NUR ---
ADMINISTERED MORPHINE PER PRN ORDERS FOR PAIN. PT NODDED HEAD WHEN ASKED IF SHE WAS IN PAIN. PT IN NO APPARENT ACUTE DISTRESS, ETT TO VENT WITH FIO2 AT 30%, O2 SAT 99%, NO LABORED BREATHING NOTED. WILL CONTINUE TO MONITOR AND REASSESS PAIN.
[2022-02-07] MEDS: MORPHINE SULFATE 2 MG/ML SYR IVP PRN ×3 (00:44→16:09)
[2022-02-07] MEDS: PROPOFOL 1000 MG/100 ML PREMIX 100 ML IV PRN ×7 (01:40→23:19)
[2022-02-07] MEDS: ALBUTEROL 0.083% 2.5 MG/3 ML NEBU INH SCH ×7 (01:49→23:00)
--- NOTE | 2022-02-07 04:30 | NUR ---
MORNING CARE PROVIDED, REPOSITIONED PT AND OFFERED COMFORT MEASURES. ORAL VAP CARE RENDERED. NG TUBE TO R NARE RUNNING GLUCERNA AT 30 ML/HR WITH 0 RESIDUAL AT THIS TIME. PT IN NO APPARENT ACUTE DISTRESS. SMALL WOUND PRESSURE TO LEFT BUTTOCK DRY AND CLOSED, LEFT OPEN TO RA. ALL SAFETY MEASURES IN PLACE, CALL LIGHT WITHIN REACH, BED LOCKED AND AT LOWEST POSITION. WILL CONTINUE TO MONITOR.
[2022-02-07] MEDS: PIPERACILLIN/TAZOBACTAM 3.375 GM in DEXTROSE 5% 50 ML IV SCH ×3 (04:44→21:26)
[2022-02-07 05:31] LABS: ALBUMIN 3.1 g/dL (3.4-5.0); ANION GAP 12.6 (8-16); CARBON DIOXIDE 26.9 mmol/L (21-32); CREATININE 0.6 mg/dL (0.6-1.3); MAGNESIUM 2.2 mg/dL (1.8-2.4); PHOSPHORUS 3.4 mg/dL (2.5-4.9); POTASSIUM 4.5 mmol/L (3.5-5.1); TOTAL BILIRUBIN 0.9 mg/dL (0.0-1.0)
[2022-02-07 05:32] LABS: BASOPHILS % (AUTO) 0.1 % (0.0-2.0); HEMATOCRIT 34.4 % (36-48); HEMOGLOBIN 10.6 g/dL (12.0-16.0); LYMPHOCYTES # (AUTO) 0.6 K/uL (2.5-16.5); LYMPHOCYTES % (AUTO) 2.9 % (20.5-51.1); MEAN CORPUSCULAR HEMOGLOBIN 25 pg (27-31); MEAN CORPUSCULAR HGB CONC 31 g/dL (33-37); MEAN CORPUSCULAR VOLUME 81.4 fL (80-94); MONOCYTES % (AUTO) 4.6 % (1.7-9.3); NEUTROPHILS # (AUTO) 19.3 K/uL (1.8-7.7); NEUTROPHILS % (AUTO) 92.4 % (42.2-75.2); PLATELET COUNT (AUTO) 314 K/uL (140-450); RED BLOOD CELL COUNT(AUTO) 4.22 MIL/uL (4.20-5.40); RED CELL DISTRIBUTION WIDTH 30.1 % (11.6-13.7); WHITE BLOOD COUNT (AUTO) 20.9 K/uL (4.8-10.8)
--- NOTE | 2022-02-07 07:27 | NUR ---
GAVE REPORT TO DAY SHIFT NURSE FOR CONTINUITY OF CARE. PT IN NO ACUTE DISTRESS.
--- NOTE | 2022-02-07 07:30 | NUR ---
RECEIVED REPORT FROM DIVINE HEALER. PT IN BED WITH HOB ELEVATED, SEDATED RASS-3. ET TUBE TO VENT SETTINGS AC VC VT 450 RATE 20 PEEP 5 FIO2 @ 30%. SATURATING WELL, BREATHING EVEN AND UNLABORED. SINUS RHYTHM ON MONITOR. BOWEL SOUNDS ACTIVE X4 QUAD. PACK CATHETER DRAINING TO BSD. PICC LINE ON MINDY DOUBLE LUMEN INTACT AND INFUSING NS @ TKO AND PROPOFOL @ 55MCG/KG/MIN AND AMIODARONE 0.5MG/MIN. KEPT CLEAN DRY AND COMFORTABLE. SAFETY PRECAUTIONS IN PLACE.
--- NOTE | 2022-02-07 07:55 | NUR ---
RECEIVED ON A English TV[employer]APE R860 VENTILATOR PLUGGED INTO RED OUTLET TOLERATING WELL WITHOUT ADVERSE REACTIONS NOTED TO AN ENDOTRACHEAL TUBE #7.5 SECURED AT 23cn TEETH/GUM LINE WITH AN ANCHOR FAST CUFF PRESSURE CHECKED NOTED AMBU BAG AT BEDSIDE SEDATED GOOD CHEST RISE NO APPARENT PULMONARY DISTRESS NOTED ENDOTRACHEAL SUCTION FOR SMALL THIN PALE YELLOW SECRETIONS AIRWAY PATENT
[2022-02-07] MEDS ORDERED: FUROSEMIDE 20 MG/2 ML VIAL IVP SCH (08:30)
--- NOTE | 2022-02-07 08:30 | NUR ---
SEEN AND EXAMINED BY DR WILKINS AND DR WADE. ORDERS NOTED
--- NOTE | 2022-02-07 08:40 | NUR ---
DUE MEDS GIVEN, ORAL CARE AND PACK CARE DONE, TURNED AND REPOSITIONED
[2022-02-07] MEDS: carvediloL 6.25 MG TAB NG SCH (08:47)
[2022-02-07] MEDS: POLYETHYLENE GLYCOL 17 GM/PKT PO SCH (08:47)
[2022-02-07] MEDS: methylPREDNISolone SS 40 MG/ML VIAL IVP SCH ×2 (08:47→21:25)
[2022-02-07] MEDS: ATORVASTATIN 20 MG TAB PO SCH (08:47)
[2022-02-07] MEDS: FERROUS SULFATE 300 MG/5 ML UDC GT SCH (08:47)
--- NOTE | 2022-02-07 10:00 | NUR ---
SEEN AND EXAMINED BY DR CORONA, ORDERS NOTED
--- NOTE | 2022-02-07 10:05 | NUR ---
TRANSFERRED TO RADIOLOGY FOR CT SCAN OF NECK REMOVED PATIENT FROM VENTILATOR PLACED ON SUPPLEMENTAL OXYGEN AT 15LPM VIA E-TANK TO AMBU BAG/HME/SUCTION CATHETER/ENDOTRACHEAL TUBE BAG DEPRESSION EVERY 6-8SECONDS TOLERATED TRANSFERS AND CT SCAN PROCEDURE WITHOUT COMPLICATIONS NOTED
[2022-02-07] MEDS ORDERED: hydrALAZINE 20 MG/ML VIAL IVP PRN (10:20)
--- NOTE | 2022-02-07 10:27 | NUR ---
SEDATED STABLE NO DISTRESS NOTED EQUAL CHEST RISE AIRWAY PATENT
[2022-02-07] MEDS: bisacodyL 10 MG SUPP RC SCH (11:24)
--- NOTE | 2022-02-07 12:18 | NUR ---
RASS-3, NO APPARENT DISTRESS
--- NOTE | 2022-02-07 14:34 | NUR ---
02/07/22 RD FOLLOW UP COMPLETED PLEASE REFER TO NUTRITION ASSESSMENT UNDER CARE ACTIVITY FOR ESTIMATED NUTRITIONAL NEEDS. 1. CONTINUE GLUCERNA 1.2 WITH A GOAL RATE OF 30 ML/HR -FWF: 250 ML Q6H OR PER MD -CONTINUE PROSOURCE TID PER RD PROTOCOL -WITH PROPOFOL AND PROSOURCE TID, PT WILL RECEIVE 100% OF ESTIMATED NUTRITIONAL NEEDS 2. IF PT NOT ON PROPOFOL, INCREASE TF GOAL RATE TO 50 ML/HR WITH PROSOURCE TID TOLERATED 3. MONITOR NUTRITION-RELATED LAB VALUES AND WEIGHT CHANGES 4. RD TO FOLLOW-UP 2-3 DAYS, HIGH RISK HOLLI UMANZOR RD
--- NOTE | 2022-02-07 15:20 | NUR ---
RASS-3, NO APPARENT DISTRESS, FLACC 0
--- NOTE | 2022-02-07 18:00 | NUR ---
WITH X 1 SMALL BM, CARMINE CARE DONE, TURNED AND REPOSITIONED
--- NOTE | 2022-02-07 19:30 | NUR ---
Recived report from Kevan BUENO. Patient remains on EET to vent. Patient tolerating FIo2 @ 30%. Per report Amiodarone drip d/c and no longer running. Patient perineal are clean and dry at this time. Patient repositioned. FC in place with urine bag below bladder. NGT feeding running, 20cc of residual noted. patient remains on BUE soft wrist restraints. bed locked and in lowest position. Patient remains on geomagnetist, VSS.
[2022-02-07] MEDS: SENNA 8.6 MG TAB PO SCH (21:27)
[2022-02-07] MEDS: AMIODARONE 200 MG TAB PO SCH (21:28)
[2022-02-07] MEDS: lisinopriL 10 MG TAB PO SCH (21:29)
[2022-02-07] MEDS: APIXABAN 2.5 MG TAB PO SCH (21:30)
--- NOTE | 2022-02-07 21:30 | NUR ---
FIO2 TITRATED TO 26% PT TOLERATING WELL AT THIS TIME W/ SPO2 99% 5 MIN POST TITRATION WILL CONTINUE TO MONITOR
[2022-02-08] VITALS (37 sets, daily range): BP systolic 114–179; BP diastolic 63–95
[2022-02-08] MEDS: ALBUTEROL 0.083% 2.5 MG/3 ML NEBU INH SCH ×5 (02:55→19:26)
[2022-02-08] MEDS: PROPOFOL 1000 MG/100 ML PREMIX 100 ML IV PRN ×5 (05:07→21:18)
[2022-02-08] MEDS: PIPERACILLIN/TAZOBACTAM 3.375 GM in DEXTROSE 5% 50 ML IV SCH ×3 (05:10→20:41)
[2022-02-08 05:46] LABS: BASOPHILS # (AUTO) 0.1 K/uL (0.00-0.22); BASOPHILS % (AUTO) 0.3 % (0.0-2.0); HEMATOCRIT 35.2 % (36-48); HEMOGLOBIN 10.9 g/dL (12.0-16.0); LYMPHOCYTES # (AUTO) 0.6 K/uL (2.5-16.5); LYMPHOCYTES % (AUTO) 2.9 % (20.5-51.1); MEAN CORPUSCULAR HEMOGLOBIN 25 pg (27-31); MEAN CORPUSCULAR HGB CONC 31 g/dL (33-37); MEAN CORPUSCULAR VOLUME 81.1 fL (80-94); MONOCYTES % (AUTO) 5.1 % (1.7-9.3); NEUTROPHILS # (AUTO) 18.8 K/uL (1.8-7.7); PLATELET COUNT (AUTO) 302 K/uL (140-450); RED BLOOD CELL COUNT(AUTO) 4.34 MIL/uL (4.20-5.40); RED CELL DISTRIBUTION WIDTH 29.6 % (11.6-13.7); WHITE BLOOD COUNT (AUTO) 20.5 K/uL (4.8-10.8)
[2022-02-08 06:19] LABS: ANION GAP 11.1 (8-16); CREATININE 0.5 mg/dL (0.6-1.3); MAGNESIUM 2.4 mg/dL (1.8-2.4); PHOSPHORUS 3.2 mg/dL (2.5-4.9); POTASSIUM 4.1 mmol/L (3.5-5.1); TOTAL BILIRUBIN 0.9 mg/dL (0.0-1.0)
[2022-02-08 06:28] LABS: NEUTROPHILS % (AUTO) 91.7 % (42.2-75.2)
--- NOTE | 2022-02-08 07:30 | NUR ---
RECEIVED REPORT FROM VULCANIZER RUBBER PLATE. PT IN BED WITH HOB ELEVATED, SEDATED RASS-3. ET TUBE TO VENT SETTINGS AC VC VT 450 RATE 20 PEEP 5 FIO2 @ 24%. SATURATING WELL, BREATHING EVEN AND UNLABORED. SINUS RHYTHM ON MONITOR. PACK CATHETER DRAINING TO BSD. PICC LINE ON MINDY DOUBLE LUMEN INTACT AND INFUSING NS @ TKO AND PROPOFOL @ 55MCG/KG/MIN. KEPT CLEAN DRY AND COMFORTABLE. SAFETY PRECAUTIONS IN PLACE.
--- NOTE | 2022-02-08 07:40 | NUR ---
ROUTINE ABG PERFORMED AT THIS TIME TO VALIDATE CURRENT VENTILATOR SETTINGS VERSUS ABG RESULTS AT 1412
--- NOTE | 2022-02-08 07:42 | NUR ---
RECEIVED ON A [employer] R860 VENTILATOR PLUGGED INTO RED OUTLET TOLERATING WELL WITHOUT ADVERSE REACTIONS NOTED TO AN ENDOTRACHEAL TUBE #7.5 SECURED AT 23cm TEETH/GUM LINE WITH AN ANCHOR FAST PATIENT TOTAL RESPIRATORY RATE AT 20 BPM WHICH IS CONCURRENT WITH MECHANICAL RATE OF 20 BPM BEDSIDE SEDATED WITH PROPOFOL AT 55mcg EASILY AWAKENS GOOD CHEST RISE ENDOTRACHEAL SUCTION FOR SMALL THIN YELLOW SECRETIONS AIRWAY PATENT ABG RESULTS REVIEWED pH 7.478 pCO2 35.2 pO2 78.2 HCO3 25.5 sO2 95.3 DECREASED MECHANICAL RATE TO 18 BPM GERA/PROCESS SAFETY MANAGEMENT ENGINEER NOTIFIED Addendum: 02/08/22 at 1105 by Horacio Coronel RT GERA/PROCESS SAFETY MANAGEMENT ENGINEER DECREASED PROPOFOL FROM 55mcg TO 30mcg FOR CPAP/SBT TRIAL
--- NOTE | 2022-02-08 07:52 | NUR ---
REVIEWED ABG SAMPLE REPORT FROM 02/08/2022 AT 0740 DECREASED MECHANICAL RATE TO 18 BPM GERA/ELL TEACHER NOTIFIED
[2022-02-08] MEDS ORDERED: VANCOMYCIN PER PHARMACY MC PRN (08:25)
[2022-02-08] MEDS: methylPREDNISolone SS 40 MG/ML VIAL IVP SCH ×2 (09:00→20:41)
[2022-02-08] MEDS: amLODIPine 5 MG TAB PO SCH (09:00)
[2022-02-08] MEDS: FERROUS SULFATE 300 MG/5 ML UDC GT SCH (09:00)
[2022-02-08] MEDS: lisinopriL 10 MG TAB PO SCH ×2 (09:00→20:44)
[2022-02-08] MEDS: FUROSEMIDE 20 MG/2 ML VIAL IVP SCH (09:00)
[2022-02-08] MEDS: POLYETHYLENE GLYCOL 17 GM/PKT PO SCH (09:00)
[2022-02-08] MEDS: AMIODARONE 200 MG TAB PO SCH ×2 (09:00→20:42)
[2022-02-08] MEDS: APIXABAN 2.5 MG TAB PO SCH ×2 (09:00→20:42)
[2022-02-08] MEDS: ATORVASTATIN 20 MG TAB PO SCH (09:00)
--- NOTE | 2022-02-08 09:05 | NUR ---
DUE MEDS GIVEN, TURNED AND REPOSITIONED. WITH LOOSE BM, CARMINE CARE DONE
--- NOTE | 2022-02-08 09:20 | NUR ---
ON RO ABOUT THIS TIME; GERA/YARDAGE ESTIMATOR INDICATED THAT THE PATIENT IS OFF PROPOFOL SEDATION
--- NOTE | 2022-02-08 09:48 | NUR ---
SBT INITIATED CPAP 5 PS 10 AND FIO2 24%. PT AWAKE AT THIS TIME. ALARMS SET APPROPRIATELY. NURSE AWARE. WILL CONTINUE TO MONITOR.
--- NOTE | 2022-02-08 09:48 | NUR ---
SBT STARTED, PT ON SEDATION VACATION, AWAKE AND FOLLOWING COMMANDS
[2022-02-08] MEDS: VANCOMYCIN 1,000 MG in DEXTROSE 5% 250 ML IV SCH ×2 (10:00→18:14)
--- NOTE | 2022-02-08 10:55 | NUR ---
PT APPEARS RESTLESS, ELEVATED RR, HR, BP. RT NOTIFIED, SBT ENDED, RESUMED ON SEDATION
--- NOTE | 2022-02-08 10:55 | NUR ---
EDUCATIONAL MANAGER CALLED TO PATIENT BEDSIDE, RN FOUND PATIENT AGITATED WITH INCREASED RESPIRATORY AND CARDIAC RATE. WHEN EDUCATIONAL MANAGER ARRIVED PATIENT WAS FOUND ASLEEP. MODE WAS CHANGED BACK TO AC. WILL ATTEMPT SBT TRIALS AT A LATER TIME. WILL CONTINUE TO MONITOR. Rosalva SYKES
[2022-02-08] MEDS: bisacodyL 10 MG SUPP RC SCH (11:24)
--- NOTE | 2022-02-08 11:40 | NUR ---
PT CONVERTED TO SVT, PAGED DR CORONA
[2022-02-08] MEDS ORDERED: ADENOSINE 6 MG/2 ML VIAL IVP ONE ×3 (11:52→12:00)
--- NOTE | 2022-02-08 11:56 | NUR ---
DR CORONA ORDERED ADENOSINE 6MG IVP ONCE
--- NOTE | 2022-02-08 12:05 | NUR ---
ADENOSINE 6MG INEFFECTIVE. NOTIFIED DR VARNER, ORDERED ADENOSINE 12MG IVP ONCE
[2022-02-08] MEDS ORDERED: METOPROLOL 5 MG/5 ML VIAL IV ONE (12:15)
[2022-02-08] MEDS ORDERED: METOPROLOL 50 MG TAB PO SCH (12:15)
--- NOTE | 2022-02-08 12:15 | NUR ---
ADENOSINE 12MG INEFFECTIVE, STILL ON SVT 140s. DR VARNER ORDERED METOPROLOL 5MG IVP ONCE Q5M X3 DOSES FOR SVT. METOPROLOL 50MG PO DAILY.
[2022-02-08] MEDS ORDERED: METOPROLOL 5 MG/5 ML VIAL ONE (12:18)
[2022-02-08] MEDS ORDERED: METOPROLOL 50 MG TAB ONE (12:18)
--- NOTE | 2022-02-08 12:48 | NUR ---
CONVERTED TO SR AFTER 2ND DOSE OF IV METOPROLOL 5MG, HELD 3RD DOSE PER ORDER
--- NOTE | 2022-02-08 16:00 | NUR ---
WITH LARGE LOOSE BM, CARMINE CARE DONE, TURNED AND REPOSITIONED
--- NOTE | 2022-02-08 19:30 | NUR ---
RECEIVED REPORT AT BEDSIDE FROM DAY SHIFT RN. PT. ASLEEP, CONT. ON PROPOFOL DRIP 55MCG/KG/MIN AND NS TKO ON IV SITE LEFT ARM PICC LINE. SITE, DRY, PATENT AND INTACT.CONT. ON ETT A/C VC RATE 18, FIO2 24%, TV 450, PEEP 5. LUNGS SOUNDS RHONCHI. HR IS SR ON MONITOR. ABDOMEN SOFT AND ROUNDED WITH MINIMAL BOWEL SOUNDS. FEEDING ON THE RIGHT NGT WITH 30 ML/HR. GASTRIC RESIDUAL 30 ML CREAMY THICK CONSISTENCY. WILL CONT. TO MONITOR. PT. CAN ABLE TO MOVE ALL EXTREMITIES WHEN STIMULATED.INITIAL ASSESSMENT COMPLETED. PROVIDED SAFE AND QUIET ENVIRONMENT. PLACED IN COMFORTBALE POSITION. WILL CONT. TO MONITOR.
[2022-02-08] MEDS: SENNA 8.6 MG TAB PO SCH (20:43)
--- NOTE | 2022-02-08 21:00 | NUR ---
CHECKED NASOGASTRIC RESIDUAL AND COLLECTED 150 ML CREAMY THICK LIQUID. TURNED OFF FEEDING GLUCERNA AND WILL CONT. TO MONITOR.
--- NOTE | 2022-02-08 21:30 | NUR ---
PT. AWAKE AND HR 139-145, NOTED PT. STARTED TO BE AGITATED. INCREASED PROPOFOL DRIP FROM 55MCG/KG/MIN TO 60MCG/KG/MIN.WILL CONT. TO MONITOR.
[2022-02-09] VITALS (29 sets, daily range): BP systolic 118–181; BP diastolic 61–79
[2022-02-09] MEDS: PROPOFOL 1000 MG/100 ML PREMIX 100 ML IV PRN ×5 (00:37→23:20)
[2022-02-09] MEDS: ALBUTEROL 0.083% 2.5 MG/3 ML NEBU INH SCH ×6 (01:24→21:49)
[2022-02-09] MEDS: VANCOMYCIN 1,000 MG in DEXTROSE 5% 250 ML IV SCH ×3 (02:01→19:02)
[2022-02-09] MEDS: PIPERACILLIN/TAZOBACTAM 3.375 GM in DEXTROSE 5% 50 ML IV SCH ×3 (05:13→21:07)
[2022-02-09 05:40] LABS: ALBUMIN 2.9 g/dL (3.4-5.0); ANION GAP 11.6 (8-16); CARBON DIOXIDE 29.3 mmol/L (21-32); CREATININE 0.5 mg/dL (0.6-1.3); MAGNESIUM 2.3 mg/dL (1.8-2.4); PHOSPHORUS 3.1 mg/dL (2.5-4.9); POTASSIUM 3.9 mmol/L (3.5-5.1); TOTAL BILIRUBIN 0.9 mg/dL (0.0-1.0)
[2022-02-09 05:55] LABS: BASOPHILS % (AUTO) 0.1 % (0.0-2.0); HEMATOCRIT 36.2 % (36-48); HEMOGLOBIN 11.1 g/dL (12.0-16.0); LYMPHOCYTES # (AUTO) 0.6 K/uL (2.5-16.5); LYMPHOCYTES % (AUTO) 2.7 % (20.5-51.1); MEAN CORPUSCULAR HEMOGLOBIN 25 pg (27-31); MEAN CORPUSCULAR HGB CONC 31 g/dL (33-37); MEAN CORPUSCULAR VOLUME 81.9 fL (80-94); MONOCYTES # (AUTO) 1.3 K/uL (0.8-1.0); NEUTROPHILS # (AUTO) 19.2 K/uL (1.8-7.7); PLATELET COUNT (AUTO) 269 K/uL (140-450); RED BLOOD CELL COUNT(AUTO) 4.42 MIL/uL (4.20-5.40); RED CELL DISTRIBUTION WIDTH 30.2 % (11.6-13.7); WHITE BLOOD COUNT (AUTO) 21.1 K/uL (4.8-10.8)
[2022-02-09 06:50] LABS: NEUTROPHILS % (AUTO) 91.2 % (42.2-75.2)
--- NOTE | 2022-02-09 06:54 | NUR ---
PT. CONT. ON ETT, PROPOFOL DRIP 60MCG/KG/MIN. CONT. ON BILATERAL WRIST RESTRAINT PER MD ORDERED. CARMINE CARE, AM CARE, ORAL CARE DONE. REPOSITIONED TO COMFORTABLE POSITION. WILL CONT. TO MONITOR
--- NOTE | 2022-02-09 07:17 | NUR ---
RECEIVED REPORT FROM XIMENA DURANT. TRANSFER OF CARE AT THIS TIME.
--- NOTE | 2022-02-09 07:30 | NUR ---
PT IN BED WITH HOB ELEVATED, SEDATED RASS-3. ET TUBE TO VENT SETTINGS AC VC VT 450 RATE 20 PEEP 5 FIO2 @ 24%. SATURATING WELL, BREATHING EVEN AND UNLABORED. SINUS RHYTHM ON MONITOR. PACK CATHETER DRAINING TO BSD. PICC LINE ON MINDY DOUBLE LUMEN INTACT AND INFUSING NS @ TKO AND PROPOFOL @ 60MCG/KG/MIN. KEPT CLEAN DRY AND COMFORTABLE. SAFETY PRECAUTIONS IN PLACE.
--- NOTE | 2022-02-09 10:17 | NUR ---
DR. HINES AT PT BEDSIDE FOR FURTHER EVALUATION.
[2022-02-09] MEDS: FUROSEMIDE 20 MG/2 ML VIAL IVP SCH (10:19)
[2022-02-09] MEDS: FERROUS SULFATE 300 MG/5 ML UDC GT SCH (10:20)
[2022-02-09] MEDS: methylPREDNISolone SS 40 MG/ML VIAL IVP SCH ×2 (10:31→21:07)
[2022-02-09] MEDS: AMIODARONE 200 MG TAB PO SCH ×2 (10:33→21:08)
[2022-02-09] MEDS: APIXABAN 2.5 MG TAB PO SCH (10:34)
[2022-02-09] MEDS: ATORVASTATIN 20 MG TAB PO SCH (10:36)
[2022-02-09] MEDS: lisinopriL 10 MG TAB PO SCH ×2 (10:37→21:09)
[2022-02-09] MEDS: amLODIPine 5 MG TAB PO SCH (10:38)
[2022-02-09] MEDS: POLYETHYLENE GLYCOL 17 GM/PKT PO SCH (10:39)
--- NOTE | 2022-02-09 11:48 | NUR ---
PT TURNED AND REPOSITIONED, SOFT BM NOTED, PT CHANGED.
[2022-02-09] MEDS: bisacodyL 10 MG SUPP RC SCH (12:04)
--- NOTE | 2022-02-09 13:40 | NUR ---
RECEIVED ON A [employer] R860 VENTILATOR PLUGGED INTO RED OUTLET TOLERATING WELL WITHOUT ADVERSE REACTIONS NOTED TO AN ENDOTRACHEAL TUBE #7.5 SECURED AT 23cm TEETH/GUM LINE WITH AN ANCHOR FAST CUFF PRESSURE CHECKED NOTED AMBU BAG AT BEDSIDE SEDATED RESTING COMFORTABLY GOOD CHEST RISE ENDOTRACHEAL SUCTION FOR SCANT THIN YELLOW/HAZY SECRETIONS AIRWAY PATENT Addendum: 02/09/22 at 1630 by Horacio DICKERSON PEAK PRESSURE AT [id number] DECREASED FLOW TO 35
--- NOTE | 2022-02-09 14:35 | NUR ---
DR. DHALIWAL AT PT BEDSIDE. CONFIRMED TRACHEA PLACEMENT WITH DR. HINES AND PT SISTER MAURY VERBAL CONSENT TO DR. DHALIWAL AND 2 RN. CONSENT SIGNED AND PLACED IN PT CHART.
--- NOTE | 2022-02-09 15:50 | NUR ---
SEDATED GOOD CHEST RISE PEAK PRESSURE [id number] DECREASED FLOW TO 30 ENDOTRACHEAL SUCTION FOR MINUTE THIN YELLOW/HAZY SECRETIONS AIRWAY PATENT
--- NOTE | 2022-02-09 19:18 | NUR ---
GAVE REPORT TO XIMENA BUSCH. TRANSFER OF CARE AT THIS TIME.
--- NOTE | 2022-02-09 19:30 | NUR ---
RECEIVED REPORT FROM DAY SHIFT. PT. REMAINS SEDATED ON PROPOFOL DRIP 55MCG/KG/MIN AND NS TKO. ON ETT WITH VENT SETTING A/CVC 20, TV 450, FIO2 24%, PEEP 5 WITH O2 SAT GREATER THAN 95%. LUNG SOUNDS DIMINISHED, SUCTIONED CREAMY THICK CLEAR SECRETIONS. SINUS RHYTHM IN THE MONITOR. IV SITE LEFT ARM PICC LINE, PATENT AND INTACT.SCHEDULE FOR TRACH ON January AND CONSENT SIGNED. CONTINUE ON BILATERAL RESTRAINT, CONT. ON MONITORING FOR SITE. PACK CATHETER WITH CLEAR YELLOW OUTPUT, INTACT. PLACED IN COMFORTABLE POSITION AND PROVIDED SAFE AND QUIET ENVIRONMENT. WILL CONT. TO MONITOR.
--- NOTE | 2022-02-09 20:56 | NUR ---
LEFT ARM PICC LINE DRESSING CHANGED.SITE NO S/S OF INFECTION. LINE PATENT AND INTACT.
[2022-02-09] MEDS: SENNA 8.6 MG TAB PO SCH (21:09)
[2022-02-10] VITALS (32 sets, daily range): BP systolic 100–149; BP diastolic 49–83
--- NOTE | 2022-02-10 01:51 | NUR ---
I CALLED THE PHARMACY TO VERIFY IF IT'S OKAY TO GIVE THE 0200 VANCO IVPB SINCE THE VANCO TROUGH IS 17.1. JAZMINE FROM PHARMACY STATED THAT HE WILL CALL BACK TO LET ME KNOW IF IT WILL BE GIVEN. JAZMINE CALLED AT THIS TIME AND STATED THAT IT'S ALREADY CALCULATED AND OK TO GIVE IT.
[2022-02-10] MEDS: VANCOMYCIN 1,000 MG in DEXTROSE 5% 250 ML IV SCH ×2 (01:57→10:00)
[2022-02-10] MEDS: PROPOFOL 1000 MG/100 ML PREMIX 100 ML IV PRN ×3 (02:02→20:31)
--- NOTE | 2022-02-10 02:58 | NUR ---
PERSONAL CARE, CARMINE CARE, ORAL CARE PROVIDED AND PLACED PT. IN COMFORTABLE POSITION. ALL NEEDS MET. BILATERAL SOFT WRIST RESTRAINT CHECKED. WILL CONT. TO MONITOR.
[2022-02-10] MEDS: ALBUTEROL 0.083% 2.5 MG/3 ML NEBU INH SCH ×7 (03:20→23:37)
[2022-02-10 05:51] LABS: HEMATOCRIT 35.3 % (36-48); MEAN CORPUSCULAR HEMOGLOBIN 25 pg (27-31); MEAN CORPUSCULAR HGB CONC 31 g/dL (33-37); MEAN CORPUSCULAR VOLUME 81.6 fL (80-94); PLATELET COUNT (AUTO) 241 K/uL (140-450); RED BLOOD CELL COUNT(AUTO) 4.32 MIL/uL (4.20-5.40); RED CELL DISTRIBUTION WIDTH 29.8 % (11.6-13.7); WHITE BLOOD COUNT (AUTO) 20.3 K/uL (4.8-10.8)
[2022-02-10 06:09] LABS: ALBUMIN 2.9 g/dL (3.4-5.0); ANION GAP 14.1 (8-16); CARBON DIOXIDE 25.3 mmol/L (21-32); CREATININE 0.5 mg/dL (0.6-1.3); MAGNESIUM 2.4 mg/dL (1.8-2.4); POTASSIUM 3.4 mmol/L (3.5-5.1)
--- NOTE | 2022-02-10 06:47 | NUR ---
RECEIVED INTUBATED PT WITH A 7.5 ETT SECURED @23 TEETH/GUM ON VENT. SETTINGS AC 20, VT 450, PEEP 5 AND FIO2 24%. PT ASLEEP AT THIS TIME NOT IN ANY DISTRESS. VENT ALARMS ON AND FUNCTIONING. AIRWAY IS SECURE AND PATENT. WILL CONTINUE TO MONITOR.
[2022-02-10 07:00] LABS: LYMPHOCYTES % (MANUAL) 2 % (20-46); MONOCYTES % (MANUAL) 6 % (5-12)
--- NOTE | 2022-02-10 07:23 | NUR ---
REPORT GIVEN TO DAY SHIFT WENDY BUENO FOR CONTINUITY OF CARE.
--- NOTE | 2022-02-10 07:24 | NUR ---
RECEIVED REPORT FROM XIMENA BUSCH. TRANSFER OF CARE A THIS TIME.
--- NOTE | 2022-02-10 07:55 | NUR ---
PT IN BED WITH HOB ELEVATED, SEDATED RASS-3. ET TUBE TO VENT SETTINGS AC VC VT 450 RATE 20 PEEP 5 FIO2 @ 24%. SATURATING WELL, BREATHING EVEN AND UNLABORED. SINUS RHYTHM ON MONITOR. PACK CATHETER DRAINING TO BSD. PICC LINE ON MINDY DOUBLE LUMEN INTACT AND INFUSING NS @ TKO AND PROPOFOL @ 55MCG/KG/MIN. KEPT CLEAN DRY AND COMFORTABLE. SAFETY PRECAUTIONS IN PLACE.
[2022-02-10] MEDS: ATORVASTATIN 20 MG TAB PO SCH (09:25)
[2022-02-10] MEDS: amLODIPine 5 MG TAB PO SCH (09:26)
[2022-02-10] MEDS: lisinopriL 10 MG TAB PO SCH ×2 (09:26→20:32)
[2022-02-10] MEDS: AMIODARONE 200 MG TAB PO SCH ×2 (09:27→20:32)
[2022-02-10] MEDS: FERROUS SULFATE 300 MG/5 ML UDC GT SCH (09:29)
[2022-02-10] MEDS: POLYETHYLENE GLYCOL 17 GM/PKT PO SCH (09:30)
[2022-02-10] MEDS: ENOXAPARIN 40 MG/0.4 ML SYR SUBQ SCH (09:30)
[2022-02-10] MEDS: methylPREDNISolone SS 40 MG/ML VIAL IVP SCH ×2 (09:31→20:27)
[2022-02-10] MEDS: FUROSEMIDE 20 MG/2 ML VIAL IVP SCH (09:32)
--- NOTE | 2022-02-10 10:16 | NUR ---
(02/10/22) RD FOLLOW UP COMPLETED PLEASE REFER TO NUTRITION PROGRESS NOTE UNDER CARE ACTIVITY FOR ESTIMATED NUTRITION NEEDS. RD RECOMMENDATIONS: 1. CONTINUE NPO MEDICALLY APPROPRIATE. 2. IF/WHEN MEDICALLY APPROPRIATE TO RESUME TF, CONSIDER RESUMING GLUCERNA 1.2 WITH A GOAL RATE OF 30 ML/HR WITH FWF: 250 ML Q6H OR PER MD. THIS WILL PROVIDE TOTAL VOLUME OF 720 ML, 864 KCAL, 43 GM PROTEIN, AND 579 ML FREE WATER; WILL MEET 54% EST KCAL AND 81% EST PROTEIN NEEDS. 3. IF PT TOLERATES GLUCERNA 1.2 AT 30 ML/HR, RDN TO RE-EVALUATE TF AND CONSIDER INCREASING GOAL RATE. 3. RD TO FOLLOW-UP 2-3 DAYS, HIGH RISK KELSEY GUTIERREZ MS, RDN
--- NOTE | 2022-02-10 10:17 | NUR ---
MONICA Elias 23.3MD TO BE MADE AWARE. HOLDING [facility] AWARE. REDRAW TO BE DONE TOMORROW.
[2022-02-10] MEDS ORDERED: fentaNYL citrate 1 MG in NACL 0.9% 80 ML IV SCH (10:35)
[2022-02-10] MEDS: bisacodyL 10 MG SUPP RC SCH (12:24)
[2022-02-10] MEDS: MIDAZOLAM MDV 100 MG in NACL 0.9% 80 ML IV PRN (12:32)
[2022-02-10] MEDS: fentaNYL citrate - 50mL vial 2.5 MG in NACL 0.9% 200 ML IV PRN (12:34)
--- NOTE | 2022-02-10 19:00 | NUR ---
RECEIVED BEDSIDE REPORT FROM DAY SHIFT NURSE. PATIENT IS SEDATED RASS -3. RESPIRATION EVEN UNLABORED ON ETT TO VENT. VENT SETTING AC/VC RT 20 PEEP 5 V450 FIO2 24% SATTING @ 96% NO DISTRESS NOTED. SKIN IS WARM AND DRY. LEFT UA PICC LINE NOTED INFUSING WITH PROPOFOL 40 MCG/KG/MIN, VERSED 2MG/H, AND FENTANYL 3MCG/H. RIGHT NGTUBE NOTED. PACK CATHETER DRAINING JOSE URINE NOTED. ALL SAFETY MEASURES IN PLACE. BED IS AT LOW POSITION. CALL LIGHT WITHIN REACH. WILL CONTINUE TO MONITOR
--- NOTE | 2022-02-10 19:41 | NUR ---
GAVE REPORT TO XIMENA JERRY. TRANSFER OF CARE AT THIS TIME.
[2022-02-10] MEDS: SENNA 8.6 MG TAB PO SCH (20:33)
--- NOTE | 2022-02-10 20:35 | NUR ---
CHECKED PT NGTUBE RESIDUAL OBTAINED 50CC. ALL SCHEDULED MEDS WERE GIVEN PER ORDER. PATIENT WILL BE NPO AFTER MIDNIGHT.
--- NOTE | 2022-02-10 22:10 | NUR ---
ORAL CARE PROVIDED, SUCTIONED PATIENT OBTAINED SMALL AMOUNT OF WHITE SECRETION. WILL CONTINUE TO MONITOR
[2022-02-11] VITALS (30 sets, daily range): BP systolic 108–153; BP diastolic 59–91
--- NOTE | 2022-02-11 00:32 | NUR ---
SUCTIONED PATIENT, ORAL CARE PROVIDED
[2022-02-11] MEDS: PROPOFOL 1000 MG/100 ML PREMIX 100 ML IV PRN ×3 (01:22→18:44)
--- NOTE | 2022-02-11 01:26 | NUR ---
PT HAD A DIARRHEA X1
[2022-02-11] MEDS: ALBUTEROL 0.083% 2.5 MG/3 ML NEBU INH SCH ×2 (01:41→07:08)
--- NOTE | 2022-02-11 04:27 | NUR ---
AM CARE PROVIDED
--- NOTE | 2022-02-11 05:30 | NUR ---
PT HEART RATE ELEVATED HIGH 140'S, NOTIFIED MD. PER MD ORDER STAT EKG AND PAGE MD ONCE RESULT IS OUT.
[2022-02-11 05:35] LABS: ANION GAP 13.4 (8-16); CARBON DIOXIDE 26.7 mmol/L (21-32); CREATININE 0.5 mg/dL (0.6-1.3); POTASSIUM 3.1 mmol/L (3.5-5.1)
--- NOTE | 2022-02-11 05:56 | NUR ---
EKG PERFORMED ORDERED AND ABNORM RESULTS REPORTED TO FORMULA MAKER A COPY WAS PLACED IN CHART AND A COPY WAS PROVIDED TO RN
--- NOTE | 2022-02-11 06:10 | NUR ---
PAGED LUBRICATING SPECIALIST, AWAITING FOR CALL BACK
[2022-02-11] MEDS ORDERED: KCL 20 MEQ/WATER INJ PREMIX 200 ML IV SCH (06:50)
--- NOTE | 2022-02-11 07:08 | NUR ---
RECEIVED ON A [employer] R860 VENTILATOR PLUGGED INTO RED OUTLET TOLERATING WELL WITHOUT ADVERSE REACTIONS NOTED TO AN ENDOTRACHEAL TUBE #7.5 SECURED AT 7.5 SECURED AT 23cm WITH AN ANCHOR FAST CUFF PRESSURE CHECKED NOTED AMBU BAG AT BEDSIDE SEDATED GOOD CHEST RISE AIRWAY PATENT
--- NOTE | 2022-02-11 07:23 | NUR ---
DURING AND POST HHN THERAPY FLUCTUATION IN CARDIAC RATE 118 TO +140 REVIEWED EKG PROCESSED IN AM WITH IMPRESSION STATING SINUS TACHYCARDIA SUPERVISOR ASSEMBLING TO CHANGE RESPIRATORY DRUG TO LEVALBUTEROL (XOPONEX)
--- NOTE | 2022-02-11 07:28 | NUR ---
ENDORSED PATIENT TO DAY SHIFT NURSE FOR CONTINUITY OF CARE. ENDORSED TO FOLLOW UP WITH DEPUTY MANAGER IN REGARDS TO PATIENT HR AND ADMINISTER K-RIDER MEDICATION PER ORDER.
--- NOTE | 2022-02-11 07:59 | NUR ---
RECEIVED BEDSIDE REPORT FROM CLEOPATRA. PATIENT IS SEDATED RASS -3. RESPIRATION EVEN UNLABORED ON ETT TO VENT. VENT SETTING AC/VC RT 20 PEEP 5 V450 FIO2 24% SAT'S @ 97% NO DISTRESS NOTED. SKIN IS WARM AND DRY. LEFT UA PICC LINE NOTED INFUSING WITH PROPOFOL 30 MCG/KG/MIN, VERSED 2MG/H, AND FENTANYL 3MCG/H. RIGHT NARE NG TUBE NOTED. PACK CATHETER DRAINING JOSE URINE NOTED. HR ELEVATED AND VIDEO CAMERA OPERATOR PAGED @0600. WILL F/U WITH SECOND CALL. ALL SAFETY MEASURES IN PLACE. WILL CONTINUE TO MONITOR
--- NOTE | 2022-02-11 08:04 | NUR ---
HEART RATE HR REMAINS 130-140'S. CHARGE NURSE NOTIFIED OF INCREASE HR AND THE CARDIOLIGIST WAS PAGED AT 066 WITH NO RETURN CALL. PER CHARGE NURSE, IF NO CALL BACK BY 0900 PLEASE MAKE A CALL TO THE SURGEON.
[2022-02-11] MEDS: FERROUS SULFATE 300 MG/5 ML UDC GT SCH (08:33)
[2022-02-11] MEDS: AMIODARONE 200 MG TAB PO SCH (08:34)
[2022-02-11] MEDS: ATORVASTATIN 20 MG TAB PO SCH (08:34)
[2022-02-11] MEDS: POLYETHYLENE GLYCOL 17 GM/PKT PO SCH (08:35)
[2022-02-11] MEDS: amLODIPine 5 MG TAB PO SCH (08:36)
[2022-02-11] MEDS: lisinopriL 10 MG TAB PO SCH ×2 (08:36→20:47)
[2022-02-11] MEDS: methylPREDNISolone SS 40 MG/ML VIAL IVP SCH ×2 (08:50→20:32)
[2022-02-11] MEDS: FUROSEMIDE 20 MG/2 ML VIAL IVP SCH (08:51)
[2022-02-11] MEDS: ENOXAPARIN 40 MG/0.4 ML SYR SUBQ SCH (08:54)
--- NOTE | 2022-02-11 09:00 | NUR ---
DISHA SMYTH MADE ROUNDS AND GAVE ORDER FOR CARDIZEM 5ML X 1 FOR INCREASED HR
[2022-02-11] MEDS: bisacodyL 10 MG SUPP RC SCH (10:37)
--- NOTE | 2022-02-11 10:44 | NUR ---
RESTING WELL GOOD CHEST RISE ENDOTRACHEAL SUCTION FOR SMALL THIN YELLOW SECRETIONS
[2022-02-11] MEDS: LEVALBUTEROL 0.63 MG/3 ML NEBU INH PRN (10:52)
[2022-02-11] MEDS ORDERED: DILTIAZEM 25 MG/5 ML VIAL IVP SCH (11:00)
[2022-02-11] MEDS ORDERED: POTASSIUM CHLORIDE 20% 40 MEQ/15 ML UDC GT SCH (11:30)
--- NOTE | 2022-02-11 11:30 | NUR ---
INCREASED HEART RATE MD MADE ROUNDS AND STARTED PT ON CARDIZEM DRIP AT 10ML/HR
[2022-02-11] MEDS ORDERED: DILTIAZEM 125 MG in DEXTROSE 5% 100 ML IV SCH (12:00)
[2022-02-11] MEDS: IPRATROPIUM 0.02% 0.5 MG/2.5 ML NEBU INH SCH ×2 (13:26→19:00)
[2022-02-11] MEDS: LEVALBUTEROL 1.25 MG/0.5 ML NEBU INH SCH ×2 (13:26→19:00)
--- NOTE | 2022-02-11 13:27 | NUR ---
SEDATED GOOD CHEST RISE ENDOTRACHEAL SUCTION FOR MODERATE SEMI THICK YELLOW SECRETIONS AIRWAY PATENT
[2022-02-11] MEDS ORDERED: ADENOSINE 6 MG/2 ML VIAL IVP ONE (13:40)
[2022-02-11] MEDS ORDERED: ADENOSINE 6 MG/2 ML VIAL IVP SCH (13:43)
[2022-02-11] MEDS ORDERED: AMIODARONE 150 MG/3 ML VIAL IV ONE (13:45)
[2022-02-11] MEDS ORDERED: AMIODARONE 150 MG in DEXTROSE 5% 100 ML IV SCH (13:50)
--- NOTE | 2022-02-11 14:00 | NUR ---
MD ACUNA D/Steve CARDIZEM AND PLACED PT ON AMIO DRIP, WHICH HAS BEEN EFFECTIVE
[2022-02-11] MEDS: AMIODARONE 450 MG in DEXTROSE 5% 250 ML IV SCH ×2 (14:14→23:42)
--- NOTE | 2022-02-11 14:30 | NUR ---
MD FLORA SMYTH ALSO CHANGED VERSED TO 6MG, PROPOFOL TO 44MCG, AND FENT TO 6
[2022-02-11] MEDS: fentaNYL citrate - 50mL vial 2.5 MG in NACL 0.9% 200 ML IV PRN (15:37)
--- NOTE | 2022-02-11 15:57 | NUR ---
SEDATED RESTING WELL GOOD CHEST RISE IMPROVED AERATION THROUGHOUT BILATERAL LUNG DOYLE AIRWAY PATENT
[2022-02-11] MEDS: MIDAZOLAM MDV 100 MG in NACL 0.9% 80 ML IV PRN (18:59)
--- NOTE | 2022-02-11 19:30 | NUR ---
RECEIVED REPORT AT BEDSIDE FROM DAY SHIFT XIMENA YEE. PT. SLEEPING AT THIS TIME. PER DAY SHIFT, IF SHE'S AWAKE, SHE'S ALERT TO PERSON. CONT. ON ETT A/C PRVC RATE 20, FIO2 24%, TV 400 AND PEEP 5. PT. TRACHEOSTOMY AND PEG PLACEMENT CANCELLED PER DAY SHIFT RN DUE TO PT. AFIB AND A FLUTTER HR RHYTHM. PT. IV IS ON LEFT ARM PICC LINE. ON AMIODARONE DRIP 1 MCG/MIN AND WILL TITRATE IT TO 0.5 MCG/MIN AT 1999. VERSED DRIP 6 MG/HR, FENTANYL DRIP 0.5 MCG/KG/HR, PROPOFOL DRIP 30 MCG/KG/MIN. PT. HAS NGT TO RIGHT NARE, NO FEEDING, NPO, FOR POSSIBLE SURGERY TOMORROW, TIME NOT YET VERIFIED. ABDOMEN ROUNDED, SOFT AND NON-TENDER. F/C ALREADY IN PLACE AND DRAINING YELLOW WITH BLOOD STREAK. WILL CONTINUE TO MONITOR. PLACED IN COMFORTABLE POSITION. PROVIDED SAFE AND QUIET ENVIRONMENT.
[2022-02-11] MEDS: SENNA 8.6 MG TAB PO SCH (20:46)
--- NOTE | 2022-02-11 22:11 | NUR ---
PT. SISTER MAURY CALLED AND ASKED FOR UPDATE. I PROVIDED UPDATE.
[2022-02-11] MEDS ORDERED: AMIODARONE 450 MG/9 ML VIAL IV ONE (23:31)
[2022-02-12] VITALS (31 sets, daily range): BP systolic 95–155; BP diastolic 55–78
[2022-02-12] MEDS: PROPOFOL 1000 MG/100 ML PREMIX 100 ML IV PRN ×4 (00:21→17:05)
[2022-02-12] MEDS: IPRATROPIUM 0.02% 0.5 MG/2.5 ML NEBU INH SCH ×4 (01:00→19:50)
[2022-02-12] MEDS: LEVALBUTEROL 1.25 MG/0.5 ML NEBU INH SCH ×4 (01:00→19:50)
--- NOTE | 2022-02-12 05:48 | NUR ---
PT. AM CARE, CARMINE CARE, ORAL CARE PROVIDED. REPOSITIONED PT. TOLERATED WELL. CONT. ON BILATERAL SOFT WRIST RESTRAINT. RELEASED RESTRAINT EVERY 2 HOURS FOR 15 MINS. AND SITE NO S/S OF INJURY. WILL ENDORSE TO THE NEXT SHIFT.
--- NOTE | 2022-02-12 07:30 | NUR ---
Received report from RN. Pt intubated on ventilator, awake currently on diprivan, versed, fentanyl drips. Pt also on amiodarone drip continuously per MD order. No acute distress or signs of pain noted. Bilateral soft wrist restraints in place for safety, pulses present, no skin breakdown noted. Toussaint in place draining nuno urine to gravity.
--- NOTE | 2022-02-12 07:39 | NUR ---
REPORT GIVEN TODAY TO DAY SHIFT XIMENA SWEET FOR CONTINUITY OF CARE.
[2022-02-12] MEDS: ENOXAPARIN 40 MG/0.4 ML SYR SUBQ SCH (08:06)
[2022-02-12] MEDS: POLYETHYLENE GLYCOL 17 GM/PKT PO SCH (08:07)
[2022-02-12] MEDS: FERROUS SULFATE 300 MG/5 ML UDC GT SCH (08:40)
[2022-02-12] MEDS: methylPREDNISolone SS 40 MG/ML VIAL IVP SCH ×2 (08:40→20:05)
[2022-02-12] MEDS: lisinopriL 10 MG TAB PO SCH ×2 (08:41→20:05)
[2022-02-12] MEDS: amLODIPine 5 MG TAB PO SCH (08:41)
[2022-02-12] MEDS: ATORVASTATIN 20 MG TAB PO SCH (08:41)
[2022-02-12] MEDS: FUROSEMIDE 20 MG/2 ML VIAL IVP SCH (08:42)
--- NOTE | 2022-02-12 10:15 | NUR ---
Dr. Sharma called unit, informed about pt's current condition and remains on amiodarone drip.
[2022-02-12] MEDS: bisacodyL 10 MG SUPP RC SCH (11:18)
[2022-02-12] MEDS: MIDAZOLAM MDV 100 MG in NACL 0.9% 80 ML IV PRN (11:22)
[2022-02-12 11:32] LABS: CARBON DIOXIDE 25.5 mmol/L (21-32); CREATININE 0.5 mg/dL (0.6-1.3); POTASSIUM 3.5 mmol/L (3.5-5.1)
[2022-02-12 12:00] LABS: BASOPHILS # (AUTO) 0.1 K/uL (0.00-0.22); BASOPHILS % (AUTO) 0.4 % (0.0-2.0); HEMOGLOBIN 10.4 g/dL (12.0-16.0); LYMPHOCYTES # (AUTO) 0.4 K/uL (2.5-16.5); LYMPHOCYTES % (AUTO) 2.2 % (20.5-51.1); MEAN CORPUSCULAR HEMOGLOBIN 26 pg (27-31); MEAN CORPUSCULAR HGB CONC 32 g/dL (33-37); MEAN CORPUSCULAR VOLUME 82.7 fL (80-94); MONOCYTES # (AUTO) 0.9 K/uL (0.8-1.0); MONOCYTES % (AUTO) 4.6 % (1.7-9.3); NEUTROPHILS # (AUTO) 18.3 K/uL (1.8-7.7); NEUTROPHILS % (AUTO) 92.8 % (42.2-75.2); PLATELET COUNT (AUTO) 199 K/uL (140-450); RED BLOOD CELL COUNT(AUTO) 3.99 MIL/uL (4.20-5.40); RED CELL DISTRIBUTION WIDTH 28.8 % (11.6-13.7); WHITE BLOOD COUNT (AUTO) 19.8 K/uL (4.8-10.8)
[2022-02-12] MEDS: AMIODARONE 450 MG in DEXTROSE 5% 250 ML IV SCH ×2 (14:24→23:45)
--- NOTE | 2022-02-12 15:43 | NUR ---
Noted pt's HR in 120s-130s from HR 70s earlier since [address] Zamora states to increase amiodarone back to 1 mg/min and page back if HR is unresolved after 2 hours.
--- NOTE | 2022-02-12 16:28 | NUR ---
Pt's HR in 113s-120s, irregular, on amiodarone drip 1 mg/hr
--- NOTE | 2022-02-12 16:36 | NUR ---
Pt's HR decreased from 129 to 70s with converted rhythm to SR. Strip placed in chart. Pt remains on amiodarone drip 1 mg/min per Dr. Zamora.
--- NOTE | 2022-02-12 17:45 | NUR ---
Dr. Macy Levy rounding on pt, requesting cardiac clearance and orders for labs tomorrow.
--- NOTE | 2022-02-12 18:20 | NUR ---
Dr. Zamora paged and return call. Informed about writing cardiac clearance for pt's procedure tomorrow.
--- NOTE | 2022-02-12 19:07 | NUR ---
Endorsed plan of care to RN.
--- NOTE | 2022-02-12 20:00 | NUR ---
RECEIVED REPORT AT BEDSIDE FROM DAY SHIFT KEE BUENO. PT IN BED AND SEDATED AT THIS TIME. PT ON ETT A/C PRVC RATE 20, FIO2 24%, TV 400 AND PEEP 5. PT. TRACHEOSTOMY AND PEG PLACEMENT SCHEDULED FOR 02/13 @ 0800. PT.HAS LEFT ARM PICC LINE WITH TRIPLE LUMNEN. PT ON AMIODARONE DRIP 1 MCG/MIN AND PER CARDILOGIST THE RATE IS TO REMAIN AT 1. VERSED DRIP 6 MG/HR, FENTANYL DRIP 0.5 MCG/KG/HR, PROPOFOL DRIP 30 MCG/KG/MIN. PT. HAS NGT TO RIGHT NARE, NO FEEDING, NPO, FOR AM SURGERY. ABDOMEN ROUNDED, SOFT AND NON-TENDER. F/C ALREADY IN PLACE AND DRAINING JOSE COLOR URINE. WILL CONTINUE TO MONITOR. ALL SAFETY MEASURES ARE IN PLACE.
[2022-02-12] MEDS: SENNA 8.6 MG TAB PO SCH (20:05)
--- NOTE | 2022-02-12 22:00 | NUR ---
RESPIRATORY WAS WITH PT AND NOTICED AN AREA ON THE RIGHT UPPER CHEST THAT WAS SWOLLEN.
--- NOTE | 2022-02-12 22:30 | NUR ---
MD CALLED AND STAT CXR ORDER PLACED
[2022-02-12] MEDS ORDERED: AMIODARONE 450 MG/9 ML VIAL IV ONE (23:41)
[2022-02-12] MEDS ORDERED: PIPERACILLIN/TAZOBACTAM 3.375 GM VIAL IV ONE (23:51)
[2022-02-13] VITALS (32 sets, daily range): BP systolic 96–159; BP diastolic 51–92
[2022-02-13] MEDS ORDERED: PIPERACILLIN/TAZOBACTAM 2.25 GM in DEXTROSE 5% 50 ML IV SCH ×2
[2022-02-13] MEDS ORDERED: PIPERACILLIN/TAZOBACTAM 3.375 GM in DEXTROSE 5% 50 ML IV SCH ×2
[2022-02-13] MEDS: PIPERACILLIN/TAZOBACTAM 3.375 GM in DEXTROSE 5% 50 ML IV SCH ×4 (00:33→18:43)
[2022-02-13] MEDS: LEVALBUTEROL 1.25 MG/0.5 ML NEBU INH SCH ×3 (01:32→19:21)
[2022-02-13] MEDS: IPRATROPIUM 0.02% 0.5 MG/2.5 ML NEBU INH SCH ×3 (01:32→19:21)
[2022-02-13] MEDS: PROPOFOL 1000 MG/100 ML PREMIX 100 ML IV PRN (01:39)
[2022-02-13] MEDS ORDERED: PIPERACILLIN/TAZOBACTAM 3.375 GM VIAL IV ONE (05:12)
[2022-02-13] MEDS: MIDAZOLAM MDV 100 MG in NACL 0.9% 80 ML IV PRN (05:46)
[2022-02-13 05:52] LABS: BASOPHILS # (AUTO) 0.1 K/uL (0.00-0.22); BASOPHILS % (AUTO) 0.5 % (0.0-2.0); HEMATOCRIT 31.8 % (36-48); HEMOGLOBIN 10.2 g/dL (12.0-16.0); LYMPHOCYTES # (AUTO) 0.3 K/uL (2.5-16.5); LYMPHOCYTES % (AUTO) 1.4 % (20.5-51.1); MEAN CORPUSCULAR HEMOGLOBIN 26 pg (27-31); MEAN CORPUSCULAR HGB CONC 32 g/dL (33-37); MONOCYTES # (AUTO) 0.7 K/uL (0.8-1.0); MONOCYTES % (AUTO) 3.6 % (1.7-9.3); NEUTROPHILS # (AUTO) 19.3 K/uL (1.8-7.7); NEUTROPHILS % (AUTO) 94.5 % (42.2-75.2); PLATELET COUNT (AUTO) 169 K/uL (140-450); RED BLOOD CELL COUNT(AUTO) 3.88 MIL/uL (4.20-5.40); RED CELL DISTRIBUTION WIDTH 29.3 % (11.6-13.7); WHITE BLOOD COUNT (AUTO) 20.4 K/uL (4.8-10.8)
[2022-02-13 06:10] LABS: ALBUMIN 2.7 g/dL (3.4-5.0); ANION GAP 13.7 (8-16); CARBON DIOXIDE 23.5 mmol/L (21-32); CREATININE 0.6 mg/dL (0.6-1.3); POTASSIUM 3.2 mmol/L (3.5-5.1); TOTAL BILIRUBIN 1.4 mg/dL (0.0-1.0)
[2022-02-13 06:46] LABS: PROTHROMBIN TIME 9.5 secs (10.8-13.4)
[2022-02-13] MEDS: POTASSIUM CHLORIDE 20% 40 MEQ/15 ML UDC GT PRN (07:22)
--- NOTE | 2022-02-13 07:30 | NUR ---
RECEIVED REPORT FROM [facility] SECURITY DIRECTORSEWING PATTERN LAYOUT TECHNICIAN. PT SCHEDULE FOE TRACHEOTOMY , PT ETT T VENT . HAS PICC LINE ON LT ARM . INFUSING VERSED FENTANYL PROPOFOL ALL INFUSING WELL . PACK CATH DRAIN CLEAR JOSE URINE.
[2022-02-13] MEDS ORDERED: BUPIVACAINE-MPF 0.25% 30 ML VIAL INJ ONE (07:42)
--- NOTE | 2022-02-13 08:02 | NUR ---
TRENT TO DR. CORONA REGARDING CARDIOLOGY CLEARANCE. HE SAID YES LONG HEART RATE BELOW 110.
--- NOTE | 2022-02-13 08:30 | NUR ---
PT LEFT TO ORWITH OR TEAM IN BED. CONDITION STABLE AT THE TIME.
[2022-02-13] MEDS ORDERED: fentaNYL citrate 0.05 MG/ML VIAL ONE (08:52)
[2022-02-13] MEDS: POLYETHYLENE GLYCOL 17 GM/PKT PO SCH (09:00)
[2022-02-13] MEDS: amLODIPine 5 MG TAB PO SCH (09:00)
[2022-02-13] MEDS: FERROUS SULFATE 300 MG/5 ML UDC GT SCH (09:00)
[2022-02-13] MEDS: lisinopriL 10 MG TAB PO SCH ×2 (09:00→20:17)
[2022-02-13] MEDS: ATORVASTATIN 20 MG TAB PO SCH (09:00)
[2022-02-13] MEDS ORDERED: SEVOFLURANE 250 ML BTL INH ONE (09:08)
[2022-02-13] MEDS ORDERED: ROCURONIUM 50 MG/5 ML VIAL IV ONE (09:08)
[2022-02-13] MEDS ORDERED: MORPHINE SULFATE 2 MG/ML SYR IVP PRN (09:45)
[2022-02-13] MEDS ORDERED: ONDANSETRON 4 MG/2 ML VIAL IV PRN (09:45)
[2022-02-13] MEDS ORDERED: HYDROmorphone 1 MG/ML AMP IVP PRN (09:45)
[2022-02-13] MEDS: methylPREDNISolone SS 40 MG/ML VIAL IVP SCH ×2 (10:00→20:18)
--- NOTE | 2022-02-13 10:00 | NUR ---
RETURN FROM OR IN BED CONNECTED TO VENT PUT BACK THE IV AND MEDICATION PUT BACK TO EKG SHOW SR. RHYTHM.
[2022-02-13] MEDS: FUROSEMIDE 20 MG/2 ML VIAL IVP SCH (10:30)
--- NOTE | 2022-02-13 10:44 | NUR ---
PT HAS NEW TRACH COVIDEN 8.5 ID. PT HAS BLOODY DRAINAGE WHICH WAS CLEANED AROUND STOMA. FIO2 TITRATED TO 50%, SPO2 99%. WILL CONTINUE TO MONITOR.
--- NOTE | 2022-02-13 11:07 | NUR ---
02/13/22 RD FOLLOW UP COMPLETED PLEASE REFER TO NUTRITION ASSESSMENT UNDER CARE ACTIVITY FOR ESTIMATED NUTRITIONAL NEEDS. 1. IF/WHEN MEDICALLY APPROPRIATE TO RESUME TF, RECOMMEND GLUCERNA 1.2 WITH A GOAL RATE OF 45 ML/HR -FWF: 200 ML Q6H OR PER MD -START AT 10 ML/HR AND INCREASE BY 10 ML Q4H TOLERATED -WILL PROVIDE TOTAL VOLUME OF 1080 ML, 1296 KCAL, 65 GM PROTEIN AND 1670 ML FREE WATER, MEETING 85% ESTIMATED KCAL AND 100% ESTIMATED PROTEIN NEEDS; ADEQUATE 2. RD TO FOLLOW-UP 2-3 DAYS, HIGH RISK HOLLI UMANZOR RD
--- NOTE | 2022-02-13 11:23 | NUR ---
FIO2 TITRATED TO 40%. WILL CONTINUE TO MONITOR.
--- NOTE | 2022-02-13 12:00 | NUR ---
REPOSITION TRACH INPLACE PEG TUBE HAS SMALL LIQUID AND GREENISH PARTICLE DRAINAGE.
[2022-02-13] MEDS ORDERED: FENTANYL CITRATE IV PRN (13:55)
[2022-02-13] MEDS ORDERED: NACL 0.9% IV PRN (13:55)
[2022-02-13] MEDS ORDERED: fentaNYL citrate 1 MG in NACL 0.9% 80 ML IV PRN (14:17)
--- NOTE | 2022-02-13 14:42 | NUR ---
SEEN BY DR CORONA AT BEDSIDE ORDER TO CONTINUR AMIODARONE IV DRIP AT 0.5/MIN.
--- NOTE | 2022-02-13 16:02 | NUR ---
SEEN BY DR. HINES AT BED SIDE NO ORDER CHANGED.
--- NOTE | 2022-02-13 17:58 | NUR ---
PT NOT IN ANY DISTRESS AT THIS TIME. VENT ALARMS ON AND FUNCTIONING. AIRWAY REMAINS SECURE AND PATENT.
--- NOTE | 2022-02-13 19:30 | NUR ---
REPORT RECEIVED AT BEDSIDE FROM AMIRAH RN FOR CONTINUITY OF CARE. PT LAYING IN BED WITH EYES CLOSED. TRACH TO VENT A/C PRVC FIO2@ 40%, TV@ 400, RATE@ 16, PEEP@ 5. BREATHING EVEN AND UNLABORED WITH DIMINISHED BREATH SOUNDS THROUGHOUT. MINDY PICC IN PLACE, PATENT AND INTACT, WITH FENTANYL RUNNING @0.5 MCG/KG/HR, VERSED @1MG/HR, AND NS @5ML/HR ALL INFUSING WELL. G-TUBE IN PLACE, AND CLAMPED, AWAITING MD INSTRUCTIONS FOR USE. PACK CATHETER ALREADY IN PLACE, AT BEDSIDE AND DRAINING CLEAR JOSE URINE TO GRAVITY. INITIAL ASSESSMENT COMPLETED. ALL SAFETY MEASURES IN PLACE, WITH CALL LIGHT IN REACH AND BED IN LOWEST POSITION. WILL CONTINUE TO MONITOR.
[2022-02-13] MEDS: SENNA 8.6 MG TAB PO SCH (20:17)
--- NOTE | 2022-02-13 21:10 | NUR ---
SCHEDULED MEDS ADMIN ORDERED. NADR NOTED. VSS. PT TURNED AND REPOSITIONED. WILL CONTINUE TO MONITOR.
[2022-02-14] VITALS (32 sets, daily range): BP systolic 92–166; BP diastolic 46–98
--- NOTE | 2022-02-14 01:25 | NUR ---
PT OBSERVED LAYING IN BED WITH RASS-3. VSS. MINDY PICC ASSESSED PATENT, INTACT, AND INFUSING WELL. NO S/S OF DISTRESS NOTED.
[2022-02-14] MEDS: LEVALBUTEROL 1.25 MG/0.5 ML NEBU INH SCH ×3 (01:43→19:12)
[2022-02-14] MEDS: IPRATROPIUM 0.02% 0.5 MG/2.5 ML NEBU INH SCH ×3 (01:44→19:12)
--- NOTE | 2022-02-14 05:11 | NUR ---
AM CARE AND CARMINE CARE PROVIDED WITH RT AT BEDSIDE. PT TURNED AND REPOSITIONED. TOLERATED WELL.
[2022-02-14] MEDS: PIPERACILLIN/TAZOBACTAM 3.375 GM in DEXTROSE 5% 50 ML IV SCH ×6 (05:26→23:58)
[2022-02-14 06:10] LABS: BASOPHILS % (AUTO) 0.2 % (0.0-2.0); HEMATOCRIT 31.2 % (36-48); HEMOGLOBIN 9.5 g/dL (12.0-16.0); LYMPHOCYTES # (AUTO) 0.3 K/uL (2.5-16.5); MEAN CORPUSCULAR HEMOGLOBIN 26 pg (27-31); MEAN CORPUSCULAR HGB CONC 31 g/dL (33-37); MONOCYTES # (AUTO) 0.8 K/uL (0.8-1.0); MONOCYTES % (AUTO) 2.8 % (1.7-9.3); NEUTROPHILS # (AUTO) 26.8 K/uL (1.8-7.7); PLATELET COUNT (AUTO) 172 K/uL (140-450); RED BLOOD CELL COUNT(AUTO) 3.71 MIL/uL (4.20-5.40); RED CELL DISTRIBUTION WIDTH 29.6 % (11.6-13.7)
[2022-02-14 06:59] LABS: WHITE BLOOD COUNT (AUTO) 27.9 K/uL (4.8-10.8)
[2022-02-14 07:01] LABS: CARBON DIOXIDE 24.1 mmol/L (21-32); CREATININE 0.8 mg/dL (0.6-1.3); POTASSIUM 4.1 mmol/L (3.5-5.1)
--- NOTE | 2022-02-14 07:30 | NUR ---
RESTRAINTS SEEN AT BEDSIDE, BUT NOT IN USE. WILL EVALUATE FOR NEED THROUGHOUT SHIFT.
[2022-02-14] MEDS: FERROUS SULFATE 300 MG/5 ML UDC GT SCH (08:58)
[2022-02-14] MEDS: methylPREDNISolone SS 40 MG/ML VIAL IVP SCH ×2 (08:58→20:22)
[2022-02-14] MEDS: amLODIPine 5 MG TAB PO SCH (08:59)
[2022-02-14] MEDS: FUROSEMIDE 20 MG/2 ML VIAL IVP SCH (08:59)
[2022-02-14] MEDS: POLYETHYLENE GLYCOL 17 GM/PKT PO SCH (09:00)
[2022-02-14] MEDS: ATORVASTATIN 20 MG TAB PO SCH (09:00)
[2022-02-14] MEDS: lisinopriL 10 MG TAB PO SCH ×2 (09:00→20:23)
[2022-02-14] MEDS: AMIODARONE 450 MG in DEXTROSE 5% 250 ML IV SCH (09:03)
--- NOTE | 2022-02-14 09:44 | NUR ---
Pt received on current ventilator settings as charted. Pt suctioned with minimal white secretions present. Pt breathing treatments given with no adverse reaction displayed. Pt shows no sign of respiratory distress. Will continue to monitor.
--- NOTE | 2022-02-14 10:59 | NUR ---
REPORT RECEIVED AT BEDSIDE FROM NIGHTSHIFT RN. PT IS LAYING IN BED ASLEEP. RESP: `TRACH TO VENT A/C PRVC FIO2@ 35%, TV@ 400, RATE@ 16, PEEP@ 5. BREATHING EVEN AND UNLABORED WITH AUDITORY WHEEZING UPON AUSCULTATION. PT HAS A MINDY PICC; PATENT AND INTACT, WITH FENTANYL RUNNING @0.5 MCG/KG/HR AND NS @5ML/HR. PT HAS G-TUBE PRESENT RECEIVING GLUCERNA AT 10ML/HR. PACK CATHETER IN PLACE, AT BEDSIDE AND DRAINING JOSE/BLOOD TINGED URINE TO GRAVITY. INITIAL ASSESSMENT COMPLETED. ALL SAFETY MEASURES IN PLACE, WITH CALL LIGHT IN REACH AND BED IN LOWEST POSITION.
--- NOTE | 2022-02-14 11:05 | NUR ---
DR. LUNA AT BEDSIDE ASSESSING PATIENT. NEW ORDERS RECEIVED.
--- NOTE | 2022-02-14 12:40 | NUR ---
DR. LUNA AT BEDSIDE ASSESSING PATIENT. NEW ORDERS RECEIVED.
--- NOTE | 2022-02-14 12:50 | NUR ---
FENTANYL HAS BEEN TURNED OFF
[2022-02-14] MEDS: MORPHINE SULFATE 4 MG/ML SYR IV PRN (14:12)
--- NOTE | 2022-02-14 15:30 | NUR ---
DR. HINES AT BEDSIDE ASSESSING THE PATIENT. TRIED SIMV WITH PATIENT ,BUT PATINET UNABLE TO TOLERATE WEANING ON VENT AT THE MOMENT. NEW ORDERS FOR RESPIRATORY GIVEN.
--- NOTE | 2022-02-14 16:20 | NUR ---
SPOKE WITH DR. CORONA AND HE WILL CHANGE THE AMIODARONE FROM A DRIP TO PO MEDS TO BE GIVEN THROUGH G-TUBE.
[2022-02-14] MEDS: AMIODARONE 200 MG TAB GT SCH (18:21)
--- NOTE | 2022-02-14 19:21 | NUR ---
REPORT RECEIVED AT BEDSIDE FROM AMIRAH BUENO. PT IS LAYING IN BED ASLEEP. PT IS TRACH TO VENT A/C PRVC FIO2@ 28%, TV@ 400, RATE@ 16, PEEP@ 5. BREATHING EVEN AND UNLABORED WITH DIMINISHED/WHEEZING BREATH SOUNDS THROUGHOUT AFTER AUSCULTATION. PT HAS A MINDY PICC, PATENT AND INTACT, WITH NS RUNNING @5ML/HR. PT HAS G-TUBE PRESENT RECEIVING GLUCERNA AT 10ML/HR WITH 250ML WATER FLUSH Q6H, AND A TOTAL RESIDUAL OF 25ML. PACK CATHETER ALREADY IN PLACE, AT BEDSIDE AND DRAINING JOSE/BLOOD TINGED URINE TO GRAVITY. INITIAL ASSESSMENT COMPLETED. ALL SAFETY MEASURES IN PLACE, WITH CALL LIGHT IN REACH AND BED IN LOWEST POSITION.
--- NOTE | 2022-02-14 19:40 | NUR ---
PT EYES OPENED TO VOICE AND ABLE TO TRACK. PT EXPRESSED THAT SHE WAS IN PAIN AND REQUESTED PAIN MEDICATION. PRN MORPHINE ADMINISTERED ORDERED.
[2022-02-14] MEDS: SENNA 8.6 MG TAB PO SCH (20:22)
--- NOTE | 2022-02-14 20:30 | NUR ---
PT HR OBSERVED IN 120s. DR. CORONA CONTACTED AND NOTIFIED. ORDERS RECEIVED FOR PRN METOPROLOL 5MG IVP Q6HR FOR HR>120.
[2022-02-14] MEDS: METOPROLOL 5 MG/5 ML VIAL IV PRN (20:49)
--- NOTE | 2022-02-14 22:45 | NUR ---
PT OBSERVED CRYING WITH FACED GRIMACED. PT AGREED THAT SHE WAS IN PAIN TO THE TRACH SITE AND PEG SITE. PRN DILAUDID ADMINISTERED ORDERED.
[2022-02-14] MEDS ORDERED: VANCOMYCIN PER PHARMACY MC PRN (23:30)
[2022-02-14] MEDS ORDERED: VANCOMYCIN 1GM/DEXT 5% PREMIX 200 ML IV ONE (23:50)
[2022-02-15] VITALS (32 sets, daily range): BP systolic 95–187; BP diastolic 50–106
[2022-02-15] MEDS ORDERED: VANCOMYCIN 1,000 MG VIAL ONE (00:36)
--- NOTE | 2022-02-15 00:50 | NUR ---
LAB AT BEDSIDE FOR BLOOD CULTURE DRAW PRIOR TO VANCO ADMINISTRATION.
[2022-02-15] MEDS: IPRATROPIUM 0.02% 0.5 MG/2.5 ML NEBU INH SCH ×4 (00:51→20:28)
[2022-02-15] MEDS: LEVALBUTEROL 1.25 MG/0.5 ML NEBU INH SCH ×4 (00:51→20:28)
[2022-02-15] MEDS: METOPROLOL 5 MG/5 ML VIAL IV PRN (02:53)
--- NOTE | 2022-02-15 03:00 | NUR ---
TF RESIDUAL NOTED AT 200ML. FEEDING PUT ON HOLD PER ORDERS.
[2022-02-15] MEDS: MORPHINE SULFATE 4 MG/ML SYR IV PRN ×2 (03:30→14:09)
--- NOTE | 2022-02-15 04:52 | NUR ---
0410 TRACH CARE DONE.
--- NOTE | 2022-02-15 05:35 | NUR ---
AM CARE, CARMINE CARE, AND ORAL CARE PROVIDED. PT TURNED AND REPOSITIONED. CENTRAL LINE DRESSING OBSERVED SOILED, DRESSING CHANGED. TOLERATED WELL.
--- NOTE | 2022-02-15 05:37 | NUR ---
PHONE CALL TO DR CORONA, HAND ENGRAVER IS VIDHYA LORA, MADE AWARE PT HR STILL AT 130'S, ALREADY GIVEN METOPROLOL PRN X 2 DOSES THIS SHIFT, PHYSICIAN SAID TO GIVE ADDITIONAL METOPROLOL 5MG IVP X1 AND IF HR DOES NOT GO DOWN, TO CALL HIM SO HE CAN ADJUST THE DOSE.YASSINE BUENO AWARE
[2022-02-15] MEDS ORDERED: METOPROLOL 5 MG/5 ML VIAL IV SCH (05:40)
[2022-02-15] MEDS: PIPERACILLIN/TAZOBACTAM 3.375 GM in DEXTROSE 5% 50 ML IV SCH ×4 (05:51→23:33)
--- NOTE | 2022-02-15 07:15 | NUR ---
Received report from Alejandro BUENO and assumed care of patient. Patient is resting in bed, sinus tach in the 130's. Per Alejandro, he spoke to Dr. Thao who gave him an order for Metoprolol x 3 doses. Last dose given at 0540. Will follow up with MD. Blood tinged urine noted in bowser bag. Per MD Alejandro was notified and urology consult was ordered.
--- NOTE | 2022-02-15 07:16 | NUR ---
REPORT GIVEN TO DAYSHIFT RN FOR CONTINUITY OF CARE
--- NOTE | 2022-02-15 07:57 | NUR ---
Dr. Zamora was messaged regarding persistent tachycardia and treatments given by noc shift. Awaiting MD response.
--- NOTE | 2022-02-15 08:30 | NUR ---
I messaged Dr. Thao regarding persistent tachycardia after 3 doses of Metoprolol 5 mg IVP given by machinist 2nd shift. Received an order for Metoprolol 50 mg via [facility] x 1.
[2022-02-15] MEDS ORDERED: METOPROLOL SUCCINATE 50 MG TABER PO SCH (08:40)
[2022-02-15] MEDS ORDERED: METOPROLOL 50 MG TAB PEG SCH (08:55)
--- NOTE | 2022-02-15 09:30 | NUR ---
SEEN BY DR. CHOU AT BED SIDE ,NO ORDER CHANGED.
[2022-02-15] MEDS: AMIODARONE 200 MG TAB GT SCH ×2 (10:05→21:00)
[2022-02-15] MEDS: ATORVASTATIN 20 MG TAB PO SCH (10:06)
[2022-02-15] MEDS: FERROUS SULFATE 300 MG/5 ML UDC GT SCH (10:06)
[2022-02-15] MEDS: lisinopriL 10 MG TAB PO SCH ×2 (10:07→21:01)
[2022-02-15] MEDS: methylPREDNISolone SS 40 MG/ML VIAL IVP SCH ×2 (10:08→21:02)
[2022-02-15] MEDS: POLYETHYLENE GLYCOL 17 GM/PKT PO SCH (10:08)
[2022-02-15] MEDS: amLODIPine 5 MG TAB PO SCH (10:09)
[2022-02-15] MEDS: FUROSEMIDE 20 MG/2 ML VIAL IVP SCH (10:12)
--- NOTE | 2022-02-15 10:15 | NUR ---
BELONGING AND VALUALBLE ENVELOP BRING TO PATIENT AT BEDSIDE AND SHE SIGN FOR IT.
[2022-02-15] MEDS ORDERED: ADENOSINE 6 MG/2 ML VIAL IVP ONE ×3 (11:18→12:45)
--- NOTE | 2022-02-15 11:28 | NUR ---
Received a verbal order for Adenosine 6 mg IVP. Medication was drawn and IVP rapidly followed by 20 ml saline flush. The heart rate slowed down for a few seconds and came back up.
--- NOTE | 2022-02-15 11:35 | NUR ---
Received a verbal order from Dr. Thao for 12 mg Adenosine. Dose drawn and administered as ordered. Dr. Thao remained at bedside the entire time for both Adenosine IV pushes. The heart rate slowed down, but remained in a flutter and then returned back up to 140's. Patient tolerated.
[2022-02-15] MEDS ORDERED: AMIODARONE 150 MG in DEXTROSE 5% 100 ML IV ONE (11:45)
--- NOTE | 2022-02-15 11:45 | NUR ---
Per Dr. Laguerre, he will place an order to restart the Amiodarone drip. Also, continue Amiodarone via PEG. Orders to monitor patient and report hypotension if it occurs for cardioversion.
--- NOTE | 2022-02-15 13:00 | NUR ---
Urology consult came to evaluate patient and ordered manual bowser irrigation q 2-3 hrs until clear, and then change Bowser catheter to regular non-3 way.
[2022-02-15] MEDS: AMIODARONE 450 MG in DEXTROSE 5% 250 ML IV SCH ×2 (13:41→23:31)
[2022-02-15] MEDS ORDERED: VANCOMYCIN HCL 1.25 GM in NACL 0.9% 250 ML IV SCH (17:00)
--- NOTE | 2022-02-15 18:00 | NUR ---
Patient bowser was irrigated as ordered today, some improvement noted. Urine is a hearing aid repair technician shade of red now. Urine continues to drain freely, no signs of blood clots noted.
--- NOTE | 2022-02-15 18:45 | NUR ---
Unable to administer Zosyn at this time, as the patient only has 2 port access on her PICC line. Presently, there is Amiodorone and Vancomycin infusing to the available ports. Plan to start Zosyn once the Vancomycin is finished infusing.
--- NOTE | 2022-02-15 19:35 | NUR ---
Report endorsed to Ari BUENO to transfer care of patient and end my care and shift. Patient resting in bed, no grimace on face, body relaxed, no signs of acute distress noted, although tachycardia continues. Amiodarone drip at 1 mg/min as ordered. Ari aware of Dr. Laguerre's plan of care. Vancomycin continues to infuse. Ari was made aware that Zosyn still needs to be given and is overdue because the patient does not have a third IV access. Ari is aware to hang Zosyn after Vancomycin has finished infusing. Glucerna G tube feeding at 30.
[2022-02-15] MEDS: SENNA 8.6 MG TAB PO SCH (21:01)
[2022-02-15] MEDS ORDERED: AMIODARONE 450 MG/9 ML VIAL IV ONE (21:51)
[2022-02-16] VITALS (31 sets, daily range): BP systolic 104–156; BP diastolic 55–92
[2022-02-16] MEDS: PIPERACILLIN/TAZOBACTAM 3.375 GM in DEXTROSE 5% 50 ML IV SCH ×4 (05:25→23:14)
--- NOTE | 2022-02-16 06:49 | NUR ---
CALLED DR. CORONA AGAIN AND LEFT MESSAGE CONCERNING THE HEART OF 139-141. WIATING FOR CALL BACK FOR ORDERS.
--- NOTE | 2022-02-16 06:50 | NUR ---
PT HAD PACK FLUSHED TIMES 2 FOR HEMATURIA. IT FGLOWED CLEAR ON THE 2ND FLUSH .
[2022-02-16] MEDS: IPRATROPIUM 0.02% 0.5 MG/2.5 ML NEBU INH SCH ×3 (07:33→19:46)
[2022-02-16] MEDS: LEVALBUTEROL 1.25 MG/0.5 ML NEBU INH SCH ×3 (07:33→19:46)
--- NOTE | 2022-02-16 08:01 | NUR ---
MORPHINE 4MG IVP WAS ADMINISTERED AT 0114 WITH ZOFRAN BUT THE SCAN BEEPED BUT DIDN'T REGISTER THE MED GIVEN
[2022-02-16] MEDS: POLYETHYLENE GLYCOL 17 GM/PKT PO SCH ×2 (09:00→10:07)
[2022-02-16] MEDS: FUROSEMIDE 20 MG/2 ML VIAL IVP SCH (09:44)
[2022-02-16] MEDS: AMIODARONE 200 MG TAB GT SCH ×2 (09:53→20:21)
[2022-02-16] MEDS: METOPROLOL 5 MG/5 ML VIAL IV PRN (09:54)
[2022-02-16] MEDS: FERROUS SULFATE 300 MG/5 ML UDC GT SCH (10:02)
[2022-02-16] MEDS: methylPREDNISolone SS 40 MG/ML VIAL IVP SCH (10:02)
[2022-02-16] MEDS: lisinopriL 10 MG TAB PO SCH ×2 (10:05→20:21)
[2022-02-16] MEDS: amLODIPine 5 MG TAB PO SCH (10:06)
[2022-02-16] MEDS: ATORVASTATIN 20 MG TAB PO SCH (10:09)
[2022-02-16 10:13] LABS: BASOPHILS % (AUTO) 0.1 % (0.0-2.0); HEMATOCRIT 32.5 % (36-48); LYMPHOCYTES # (AUTO) 0.4 K/uL (2.5-16.5); MEAN CORPUSCULAR HEMOGLOBIN 25 pg (27-31); MEAN CORPUSCULAR HGB CONC 31 g/dL (33-37); MEAN CORPUSCULAR VOLUME 82.5 fL (80-94); MONOCYTES # (AUTO) 1.5 K/uL (0.8-1.0); MONOCYTES % (AUTO) 4.6 % (1.7-9.3); NEUTROPHILS # (AUTO) 30.7 K/uL (1.8-7.7); PLATELET COUNT (AUTO) 164 K/uL (140-450); RED BLOOD CELL COUNT(AUTO) 3.94 MIL/uL (4.20-5.40); RED CELL DISTRIBUTION WIDTH 29.4 % (11.6-13.7)
[2022-02-16 10:14] LABS: ANION GAP 10.9 (8-16); CARBON DIOXIDE 25.9 mmol/L (21-32); CREATININE 0.5 mg/dL (0.6-1.3); POTASSIUM 3.8 mmol/L (3.5-5.1)
[2022-02-16 10:16] LABS: WHITE BLOOD COUNT (AUTO) 32.6 K/uL (4.8-10.8)
[2022-02-16 10:33] LABS: LYMPHOCYTES % (AUTO) 1.3 % (20.5-51.1)
[2022-02-16] MEDS: VANCOMYCIN HCL 1.25 GM in NACL 0.9% 250 ML IV SCH (11:54)
--- NOTE | 2022-02-16 12:24 | NUR ---
02/16/22 RD FOLLOW UP COMPLETED. PLEASE REFER TO NUTRITION ASSESSMENT UNDER CARE ACTIVITY FOR ESTIMATED NUTRITIONAL NEEDS. 1. CONTINUE GLUCERNA 1.2 @ 30ML/HR -FWF: 200 ML Q6H OR PER MD -WILL PROVIDE TOTAL VOLUME OF 720 ML, 864 KCAL, 43 GM PROTEIN, AND 581 ML FREE WATER. WITH PROPOFOL, THIS MEETS ~79% ESTIMATED KCAL AND 84% PROTEIN NEEDS; ADEQUATE. 2. RD TO FOLLOW-UP 2-3 DAYS, HIGH RISK JILL CAUSEY RD
--- NOTE | 2022-02-16 13:23 | NUR ---
0900 AM: MD BARRETT NOTED HR 141/MINUTE, ORDERED AMIODARONE INCREASED FROM 0.5 MG/MINUTE TO 1 MG/MINUTE WITH CHIEF JUVENILE PROBATION OFFICERXIMENA CHA. GIVEN METOPROLOL 5 MG IVP, HR DROPPED FROM 141 TO 139/MINUTE, BP STABLE 1150 AM: STARTED PATIENT ON CONTINUOUS BLADDER IRRIGATION ORDERED BY RN/MEN'S AND BOYS' CLOTHING SALESPERSON WILDER AROUND 0845AM DUE TO CLOT/HEMATURIA. URINE PACK CATHETER EMPTIED BEFORE CBI, 850 MLS. (AFTER LASIX) PATIENT HAD LOOSE BM, HELD POLYETHYLENE GLYCOL. AWAITING VANCOMYCIN TROUGH, WBC 32.6. 1330 HRS. VANCO 9.2, GIVEN VANCO IVPB NOW
[2022-02-16] MEDS ORDERED: LORazepam 2 MG/ML VIAL ONE (14:19)
[2022-02-16] MEDS ORDERED: LORazepam 2 MG/ML VIAL IM/IVP SCH (14:30)
--- NOTE | 2022-02-16 14:56 | NUR ---
1400 MD VARNER (CARDIOLOGY) CAME &NOTED HR 139-141/MINUTE, HAD METOPROLOL 5 MG IVP, HR STAYS THE SAME. 1415 HRS. CARDIOVERTED 150 JOULES, HR DROPPED TO 92/MINUTE WITH PACs, & WENT UP BACK TO 130S, HAD 1 MG LORAZEPAM 1421 HRS. CARDIOVERTED 200 JOULES (2ND) AND SLOWED HR TO 78-80s/MINUTE WITH PACs, STABLE BP.
--- NOTE | 2022-02-16 16:08 | NUR ---
1445 HRS. MD VARNER ORDERED TO KEEP AMIODARONE DRIP AT 0.5 MG/MINUTE UNTIL 1700 HRS. THEN STOP AMIODARONE DRIP AT 1700 HRS.
--- NOTE | 2022-02-16 19:33 | NUR ---
Received report on pt. Pt AAOx2 in no signs of pain or distress, trach to vent. Left UA PICC with NS TKO. Glucerna 1.2 @ 30ml/hr running through GT, noted 60 ml residual. Toussaint in place with continuous bladder irrigation, nuno/red urine draining by gravity with clots.
[2022-02-16] MEDS: SENNA 8.6 MG TAB PO SCH (20:21)
[2022-02-16] MEDS: MORPHINE SULFATE 4 MG/ML SYR IV PRN (22:08)
--- NOTE | 2022-02-16 22:45 | NUR ---
Pt noted with loose liquid brown BM, perform michael care and linen change. Toussaint care done.
[2022-02-17] VITALS (27 sets, daily range): BP systolic 98–153; BP diastolic 51–95
[2022-02-17] MEDS: VANCOMYCIN HCL 1.25 GM in NACL 0.9% 250 ML IV SCH ×3 (00:12→23:20)
[2022-02-17] MEDS: LEVALBUTEROL 1.25 MG/0.5 ML NEBU INH SCH ×4 (01:09→19:00)
[2022-02-17] MEDS: IPRATROPIUM 0.02% 0.5 MG/2.5 ML NEBU INH SCH ×5 (01:09→19:00)
[2022-02-17] MEDS: MORPHINE SULFATE 4 MG/ML SYR IV PRN ×4 (03:57→16:00)
[2022-02-17] MEDS ORDERED: Z-GUARD PASTE TP ONE (04:43)
[2022-02-17] MEDS ORDERED: HYDRAGUARD CREAM TP ONE (04:45)
--- NOTE | 2022-02-17 04:53 | NUR ---
Pt noted with loose liquid BM, perform michael care. Applied moisture barrier cream to michael area.
[2022-02-17] MEDS: PIPERACILLIN/TAZOBACTAM 3.375 GM in DEXTROSE 5% 50 ML IV SCH ×4 (05:01→17:12)
--- NOTE | 2022-02-17 07:10 | NUR ---
SBAR report received from night RN, all cares assumed. Pt trach to vent. Vent settings AC 16, 400, 35%, PEEP 5. Toussaint catheter with continuous irrigation, draining well. Trach and G-tube dressing clean, dry and intact. Bed in low and locked position, call light within reach.
[2022-02-17] MEDS: FERROUS SULFATE 300 MG/5 ML UDC GT SCH (09:08)
[2022-02-17] MEDS: methylPREDNISolone SS 40 MG/ML VIAL IVP SCH (09:09)
[2022-02-17] MEDS: FUROSEMIDE 20 MG/2 ML VIAL IVP SCH (09:09)
[2022-02-17] MEDS: amLODIPine 5 MG TAB PO SCH (09:10)
[2022-02-17] MEDS: POLYETHYLENE GLYCOL 17 GM/PKT PO SCH (09:10)
[2022-02-17] MEDS: ATORVASTATIN 20 MG TAB PO SCH (09:10)
[2022-02-17] MEDS: lisinopriL 10 MG TAB PO SCH ×2 (09:13→20:46)
[2022-02-17] MEDS: AMIODARONE 200 MG TAB GT SCH ×2 (09:14→20:45)
[2022-02-17 10:48] LABS: ANION GAP 8.1 (8-16); CARBON DIOXIDE 31.9 mmol/L (21-32); CREATININE 0.5 mg/dL (0.6-1.3)
[2022-02-17 11:09] LABS: BASOPHILS % (AUTO) 0.1 % (0.0-2.0); EOSINOPHILS % (AUTO) 0.2 % (0.0-4.0); HEMATOCRIT 30.7 % (36-48); HEMOGLOBIN 9.6 g/dL (12.0-16.0); LYMPHOCYTES # (AUTO) 0.4 K/uL (2.5-16.5); LYMPHOCYTES % (AUTO) 1.9 % (20.5-51.1); MEAN CORPUSCULAR HEMOGLOBIN 26 pg (27-31); MEAN CORPUSCULAR HGB CONC 31 g/dL (33-37); MEAN CORPUSCULAR VOLUME 82.7 fL (80-94); MONOCYTES # (AUTO) 0.9 K/uL (0.8-1.0); MONOCYTES % (AUTO) 4.8 % (1.7-9.3); NEUTROPHILS # (AUTO) 17.4 K/uL (1.8-7.7); PLATELET COUNT (AUTO) 142 K/uL (140-450); RED BLOOD CELL COUNT(AUTO) 3.72 MIL/uL (4.20-5.40); WHITE BLOOD COUNT (AUTO) 18.7 K/uL (4.8-10.8)
[2022-02-17] MEDS: ENOXAPARIN 30 MG/0.3 ML SYR SUBQ SCH (11:17)
[2022-02-17] MEDS: LEVALBUTEROL 0.63 MG/3 ML NEBU INH PRN (15:52)
[2022-02-17] MEDS: HYDROcodone/APAP 5/325 MG 1 TAB TAB PO PRN (18:54)
--- NOTE | 2022-02-17 19:30 | NUR ---
RECEIVED REPORT FROM DAY SHIFT RN. PT. AWAKE, ON BEDREST. TRACH TO VENT A/C PRVC, RATE 16, FIO2 35%, TV 400, PEEP 5. WITH O2 SAT 98%. IV TO THE LEFT ARM PICC LINE, DRY, PATENT AND INTACT, RUNNING NS TKO. PT. HAS A GT FEEDING GLUCERNA AT 30 ML/HR W/ITH 100 ML FLUSH EVERY 6 HOURS. PACK CATHETER TO GRAVITY AND NOTED URINE WITH YELLOW RED COLOR. PER DAY SHIFT, MD AWARE AND IRRIGATION ORDERED TO HOLD. SCD TO LEFT LEG IN PLACE. PT. K LEVEL CHECKED ON LAB RECORD AND IT IS 3.0. WILL GIVE KCL 40 MEQ PRN TO GT. ASSESSMENT COMPLETED, LUNGS BOTH SIDE CLEAR, ABDOMEN MINIMAL BOWEL SOUNDS, EYES PERLL. PT. FOLLOW SIMPLE COMMANDS AND ORIENTED TO PERSON. PLACED PT. IN COMFORTABLE POSITION. PROVIDED SAFE AND QUIET ENVIRONMENT. WILL CONTINUE TO MONITOR.
[2022-02-17] MEDS: POTASSIUM CHLORIDE 20% 40 MEQ/15 ML UDC GT PRN (19:43)
[2022-02-17] MEDS: SENNA 8.6 MG TAB PO SCH (20:46)
--- NOTE | 2022-02-17 21:29 | NUR ---
PHONE CALL TO AFTER HOURS PHARMACY, SPOKE WITH ALEJANDRO,PHARMACIST, VERIFIED WITH ALEJANDRO IF VANCO DOSE WILL BE GIVEN AT 2300; HE SAID TO GIVE THE 2300 DOSE, NARAYAN BUENO ,PRIMARY NURSE OF THE PT AWARE
[2022-02-18] VITALS (8 sets, daily range): BP systolic 130–161; BP diastolic 59–107
--- NOTE | 2022-02-18 | NUR ---
PT. PACK CATHETER URINE NOTED TO BE CLEAR RED WITH RED TINGED. IRRIGATED WITH STERILE WATER 800 ML UNTIL URINE IS CLEAR PER ORDERED. PT. TOLERATED WELL AND NO S/S OF PAIN.
--- NOTE | 2022-02-18 | NUR ---
PT.FEEDING OFF AT 1999 DUE TO HIGH RESIDUAL OF 120ML, CREAMY THICK LIQUID. AT 0, GASTRIC RESIDUAL OF 100 ML CREAMY THICK LIQUID. RESUMED FEEDING OF GLUCERNA AT 30 ML/HR AT THIS TIME WITH GASTRIC RESIDUAL OF 15ML CREAM THIN LIQUID.
[2022-02-18] MEDS: LEVALBUTEROL 1.25 MG/0.5 ML NEBU INH SCH ×3 (01:25→14:05)
[2022-02-18] MEDS: IPRATROPIUM 0.02% 0.5 MG/2.5 ML NEBU INH SCH ×3 (01:26→14:05)
--- NOTE | 2022-02-18 05:02 | NUR ---
PT. PROVIDED PERSONAL CARE, AM CARE, CARMINE CARE AND ORAL CARE. TOLERATED PROCEDURE WELL.
[2022-02-18] MEDS: PIPERACILLIN/TAZOBACTAM 3.375 GM in DEXTROSE 5% 50 ML IV SCH ×2 (05:29→11:01)
--- NOTE | 2022-02-18 06:35 | NUR ---
CHECKED RESULT OF VANCO RANDOM FOR THIS MORNING AND RESULT 31.8 HIGH. WILL ENDORSE TO NEXT SHIFT.
[2022-02-18 06:40] LABS: ANION GAP 6.8 (8-16); CARBON DIOXIDE 31.4 mmol/L (21-32); CREATININE 0.4 mg/dL (0.6-1.3); POTASSIUM 4.2 mmol/L (3.5-5.1)
--- NOTE | 2022-02-18 07:30 | NUR ---
RECEIVED BEDSIDE REPORT FROM [employer] NURSE FOR CONTINUITY OF CARE. PT IS A&OX1, RESPONDS TO NAME. ON TRACH TO VENT WITH BREATHING UNLABORED. O2 SAT IS 100%. VENT SETTINGS; FIO2 35%, PEEP 5, VT 400, RT 16. G TUBE IN PLACE INFUSING FEEDING GLUCERNA AT 30 ML/HR. [address] WAY PACK CATH IN PLACE; PER [employer] NURSE STILL HEMATURIA AND DID NOT REPLACE TO [address] CATH ORDERED. SKIN IS WARM, DRY, AND INTACT. PICC LINE IN THE LEFT UPPER ARM INFUSING FLUID TKO. PT IS STABLE. VS ARE STABLE. PLAN OF CARE DISCUSSED.
--- NOTE | 2022-02-18 07:32 | NUR ---
REPORT GIVEN TO DAY SHIFT RN DENZEL FOR CONTINUITY OF CARE.
--- NOTE | 2022-02-18 08:08 | NUR ---
RECEIVED ORDER FROM UROLIGIST TO REMOVE [address] WAY PACK CATH AND REPLACE WITH [address] CATHETER.
[2022-02-18] MEDS ORDERED: HYDRAGUARD CREAM TP PRN (08:30)
[2022-02-18] MEDS ORDERED: Z-GUARD PASTE TP ONE (08:30)
[2022-02-18] MEDS: AMIODARONE 200 MG TAB GT SCH (08:30)
[2022-02-18] MEDS: FERROUS SULFATE 300 MG/5 ML UDC GT SCH (08:30)
[2022-02-18] MEDS: ATORVASTATIN 20 MG TAB PO SCH (08:31)
[2022-02-18] MEDS: methylPREDNISolone SS 40 MG/ML VIAL IVP SCH (08:31)
[2022-02-18] MEDS: FUROSEMIDE 20 MG/2 ML VIAL IVP SCH (08:31)
[2022-02-18] MEDS: POLYETHYLENE GLYCOL 17 GM/PKT PO SCH (08:32)
[2022-02-18] MEDS: amLODIPine 5 MG TAB PO SCH (08:32)
[2022-02-18] MEDS: lisinopriL 10 MG TAB PO SCH (08:33)
[2022-02-18] MEDS: HYDROcodone/APAP 5/325 MG 1 TAB TAB PO PRN (08:33)
--- NOTE | 2022-02-18 08:33 | NUR ---
PT WAS GIVEN NORCO FOR PAIN. PT NODDED YES WHEN ASKED IF SHE HAD PAIN AND POINTED TO HER HEAD. PT IS SHAKING HEAD BACK AND FORTH AND MOVING HANDS RAPIDLY. PT APPEARS TO BE UNCOMFORTABLE. BP WAS STABLE PRIOR TO ADMINISTRATION OF MEDICATION. WILL CONTINUE TO MONITOR.
[2022-02-18] MEDS ORDERED: IV Vancomycin IV (09:57)
[2022-02-18] MEDS ORDERED: LISI-487 PO (09:57)
[2022-02-18] MEDS ORDERED: AMLO5TAB PO (09:57)
[2022-02-18] MEDS ORDERED: PRED5TAB8 PO (09:57)
[2022-02-18] MEDS ORDERED: AMIO200T66 PO (09:57)
[2022-02-18] MEDS ORDERED: FURO-572 PO (09:57)
--- NOTE | 2022-02-18 10:00 | NUR ---
PACK CATH 3 WAY REMOVED PER UROLOGIST YEAST CAKE CUTTER. 10 CC OF FLUID REMOVED FROM BALLOON AND NO RESISTANCE NOTED. 2 WAY PACK CATH PLACED IN PATIENT WITH HELP OF GUILLERMINA BUENO AND GERA ROSAS RN. RESIDUAL URINE OF 100 ML COLLECTED IMMEDIATELY, PINK IN COLOR WITH SOME CLOTS OF BLOOD. NOTIFIED DR. BARRETT AND ASKED IF HE WOULD STILL WANT ME TO GIVE LOVENOX ORDERED. HE STATED TO GIVE LOVENOX AND MD AWARE OF HEMATURIA.
--- NOTE | 2022-02-18 10:30 | NUR ---
BED BATH WAS PROVIDED. PT HAD A LARGE LIQUID BM. DARK BROWN IN COLOR. REDNESS NOTED ON THE BUTTOCKS AND INNER THIGHS. Z GAURD WAS PLACED ON PT. NEW LINENS IN PLACE. WILL CONTINUE TO MONITOR. PT IS NOW BACK TO SLEEP.
[2022-02-18] MEDS: ENOXAPARIN 30 MG/0.3 ML SYR SUBQ SCH (10:45)
--- NOTE | 2022-02-18 11:54 | NUR ---
PT IS SLEEPING IN SEMI FOWLERS POSITION. NO RESPIRATORY DISTRESS NOTED ON TRACH TO VENT. O2 SAT IS 99%. G TUBE FEEDING IS INFUSING ORDERED. CHUCKS ARE DRY AND IN PLACE. PACK CATH DRAINING PINK COLORED URINE.
[2022-02-18] MEDS: MORPHINE SULFATE 4 MG/ML SYR IV PRN (12:13)
--- NOTE | 2022-02-18 12:14 | NUR ---
PT APPEARS TO BE IN PAIN. WHEN ASKED IF SHE WAS IN PAIN SHE NODDED YES. UNABLE TO IDENTIFY WHERE THE PAIN WAS LOCATED PT COULD NOT VERBALIZE OR POINT TO AREA. FLACC SCALE 7. MEDICATED WITH MORPHINE PRN.
--- NOTE | 2022-02-18 14:10 | NUR ---
ENDORSED REPORT TO MAUREEN OCONNOR AT [facility]. DISCHARGE REPORT COMPLETED BY GERA ROSAS RN. PT IS STABLE. VS ARE STABLE. DATA ANALYTICS ANALYST TIME IS AT 4 PM AND PT WILL GO TO [place] 3[place] [facility] [place]
--- NOTE | 2022-02-18 14:20 | NUR ---
RT AT BEDSIDE PROVIDING BREATHING TREATMENT. PT IS STABLE AT THIS TIME. WAS MADE AWARE THAT SHE WILL BE PICKED UP TO [place] [facility] [place] PT MADE A HAPPY GESTURE WITH HANDS. WILL CONTINUE TO MONITOR.
--- NOTE | 2022-02-18 15:50 | NUR ---
PT WAS DISCHARGED FROM THE HOSPITAL VIA TRANSPORT AMBULANCE. REPORT GIVEN TO NURSE AND SPRING CRATER. PT IS STABLE. RESPONDING TO QUESTIONS APPROPRIATELY. VS ARE STABLE. PT WAS TAKEN ON STRETCHER WITH VENTILATOR IN PLACE. G TUBE IN PLACE. PACK CATH IN PLACE. PT DENIES PAIN.
[2022-02-18] MEDS ORDERED: AMIODARONE 200 MG TAB GT SCH (21:00)
== END 2022-02-18 15:55 | DRG 4 ==
LOC: MED 12:29 → MMU 16:41 → MIC 17:52
PROC: 5A09457 Assistance with Respiratory Ventilation, 24-96 Consecutive Hours, Continuous Positive Airway Pressure (ICD-10-PCS; 2022-01-28)
PROC: 5A1955Z Respiratory Ventilation, Greater than 96 Consecutive Hours (ICD-10-PCS; principal; 2022-01-30)
PROC: 0D568ZZ Destruction of Stomach, Via Natural or Artificial Opening Endoscopic (ICD-10-PCS; 2022-01-31)
PROC: 30233N1 Transfusion of Nonautologous Red Blood Cells into Peripheral Vein, Percutaneous Approach (ICD-10-PCS; 2022-02-01)
PROC: 0DJD8ZZ Inspection of Lower Intestinal Tract, Via Natural or Artificial Opening Endoscopic (ICD-10-PCS; 2022-02-03)
PROC: 0BH17EZ Insertion of Endotracheal Airway into Trachea, Via Natural or Artificial Opening (ICD-10-PCS; 2022-02-05)
PROC: 0DH64UZ Insertion of Feeding Device into Stomach, Percutaneous Endoscopic Approach (ICD-10-PCS; 2022-02-13)
PROC: 0B110F4 Bypass Trachea to Cutaneous with Tracheostomy Device, Open Approach (ICD-10-PCS; 2022-02-13 08:00)
DX: A41.9 Sepsis, unspecified organism (principal); G93.41 Metabolic encephalopathy; J96.21 Acute and chronic respiratory failure with hypoxia; J96.22 Acute and chronic respiratory failure with hypercapnia; J69.0 Pneumonitis due to inhalation of food and vomit; I50.33 Acute on chronic diastolic (congestive) heart failure; N17.0 Acute kidney failure with tubular necrosis; K57.91 Diverticulosis of intestine, part unspecified, without perforation or abscess with bleeding; J44.1 Chronic obstructive pulmonary disease with (acute) exacerbation; E44.1 Mild protein-calorie malnutrition; J44.0 Chronic obstructive pulmonary disease with (acute) lower respiratory infection; Z68.41 Body mass index [BMI] 40.0-44.9, adult; Q27.30 Arteriovenous malformation, site unspecified; K31.819 Angiodysplasia of stomach and duodenum without bleeding; D50.9 Iron deficiency anemia, unspecified; K59.00 Constipation, unspecified; D75.839 Thrombocytosis, unspecified; E87.6 Hypokalemia; R13.10 Dysphagia, unspecified; T38.0X5A Adverse effect of glucocorticoids and synthetic analogues, initial encounter; I48.91 Unspecified atrial fibrillation; E66.01 Morbid (severe) obesity due to excess calories; K80.20 Calculus of gallbladder without cholecystitis without obstruction; I11.0 Hypertensive heart disease with heart failure; E78.5 Hyperlipidemia, unspecified; J40 Bronchitis, not specified as acute or chronic; Z20.822 Contact with and (suspected) exposure to COVID-19; Z99.81 Dependence on supplemental oxygen; Z90.11 Acquired absence of right breast and nipple; Z87.891 Personal history of nicotine dependence; Z86.73 Personal history of transient ischemic attack (TIA), and cerebral infarction without residual deficits; Z85.3 Personal history of malignant neoplasm of breast; Y92.89 Other specified places as the place of occurrence of the external cause
CPT/HCPCS: 31500; 36415; 36430; 36600; 70360; 70490; 71045; 71275; 74018; 76770; 80048; 80053; 80202; 80305; 81001; 81003; 82150; 82272; 82607; 82728; 82746; 82803; 83036; 83540; 83605; 83690; 83735; 83880; 84100; 84134; 84436; 84443; 84484; 85025; 85045; 85610; 85730; 86886; 86900; 86901; 86920; 87040; 87070; 87081; 87086; 87205; 87635-QW; 92526; 93005; 94002; 94003; 94640; 94660; 96374; 96375; 97110; 97163-GP; 97530; 99285; 99291; C9113; J0153; J0282; J0360; J1170; J1200; J1644; J1650; J1940; J1956; J2060; J2250; J2270; J2405; J2543; J2704; J2710; J2765; J2916; J2920; J2930; J3010; J3370; J3480; J3490; J7030; J7060; J7612; J7613; J7614; J7626; J7644; P9016; Q0092; Q9967

== ENCOUNTER 2022-04-06 05:37 | Inpatient (IN) | payer OTHER, MEDICAID ==
[~2022-04-06] VITALS: Ht 160 cm; Wt 84.8 kg
[~2022-04-06 05:37] MED LIST changes: -ALBU0.0912 IH; +AMIO200T66 PO; +AMLO5TAB PO; -AZIT250T3 PO; -CEPH-588 PO; +FURO-572 PO; +IV Vancomycin IV; +LISI-487 PO; +PRED5TAB8 PO
--- NOTE | 2022-04-06 05:38 | NUR ---
PT [facility] ER BED 11
--- NOTE | 2022-04-06 05:43 | NUR ---
DR BEACH EXAM PT
[2022-04-06 05:44] VITALS: BP 92/59
--- NOTE | 2022-04-06 06:08 | NUR ---
X-Ray at bedside.
--- NOTE | 2022-04-06 06:28 | NUR ---
Med-rec reviewed.
[2022-04-06] MEDS ORDERED: DILT30TA18 GT (06:29)
[2022-04-06] MEDS ORDERED: DOCU250S72 GT (06:29)
[2022-04-06] MEDS ORDERED: ALPR0.5T2 GT (06:29)
[2022-04-06 06:36] VITALS: BP 116/72
--- NOTE | 2022-04-06 06:50 | NUR ---
22G IV CATH PLACED IN L WRIST
--- NOTE | 2022-04-06 07:10 | NUR ---
67 YR OLD FEMALE BIB EMS C/O FALL AND DIARRHEA. PT VENTED AND TRACH, PER EMS PT FALL TRYING TO GET OUT OF BED. NO LOC OR HEAD INJURY. PT A&OX4. PT DOES STATE PAIN IN HEAD. 22G IV CATH PLACED IN L WRIST . PT HAS A GTUBE AND PACK. PT CAME FROM [facility]. PT IS BED BOUND. HOB ELEVATED SIDE RAILS UP X2. BED AT LOWEST POSITION. NKDA RESP FAILURE ANXIETY ASTHMA COPD
--- NOTE | 2022-04-06 07:15 | NUR ---
ASSISTED IN TRANSPORT OF PATIENT FROM ER BED #[address], AND RETURN TO ER BED # 11. PT IS IN NO DISTRESS, AND SATURATIONS ARE ABOVE 92%. PORTEX 7 AIRWAY IS PATENT, VENTILATOR IS PLUGGED INTO A RED OUTLET AND FUNCTIONING PROPERLY.
--- NOTE | 2022-04-06 07:15 | NUR ---
Recieved report from MAUREEN Logan for transfer of care.
--- NOTE | 2022-04-06 07:20 | NUR ---
PT TO CT
[2022-04-06 07:58] LABS: ALBUMIN 2.4 g/dL (3.4-5.0); ANION GAP 13.8 (8-16); CARBON DIOXIDE 30.7 mmol/L (21-32); CREATININE 0.5 mg/dL (0.6-1.3); POTASSIUM 4.5 mmol/L (3.5-5.1); TOTAL BILIRUBIN 0.3 mg/dL (0.0-1.0)
[2022-04-06 08:00] LABS: BASOPHILS # (AUTO) 0.1 K/uL (0.00-0.22); BASOPHILS % (AUTO) 0.5 % (0.0-2.0); EOSINOPHILS # (AUTO) 0.3 K/uL (0-0.4); EOSINOPHILS % (AUTO) 2.4 % (0.0-4.0); HEMATOCRIT 29.6 % (36-48); HEMOGLOBIN 9.2 g/dL (12.0-16.0); LYMPHOCYTES # (AUTO) 1.9 K/uL (2.5-16.5); LYMPHOCYTES % (AUTO) 12.9 % (20.5-51.1); MEAN CORPUSCULAR HEMOGLOBIN 25 pg (27-31); MEAN CORPUSCULAR HGB CONC 31 g/dL (33-37); MEAN CORPUSCULAR VOLUME 79.6 fL (80-94); MONOCYTES # (AUTO) 1.4 K/uL (0.8-1.0); MONOCYTES % (AUTO) 9.4 % (1.7-9.3); NEUTROPHILS # (AUTO) 10.9 K/uL (1.8-7.7); NEUTROPHILS % (AUTO) 74.8 % (42.2-75.2); PLATELET COUNT (AUTO) 596 K/uL (140-450); RED BLOOD CELL COUNT(AUTO) 3.72 MIL/uL (4.20-5.40); RED CELL DISTRIBUTION WIDTH 22.1 % (11.6-13.7); WHITE BLOOD COUNT (AUTO) 14.5 K/uL (4.8-10.8)
[2022-04-06 08:13] LABS: LIPASE 47 U/L (73-393)
[2022-04-06 08:21] LABS: APPEARANCE,URINE SL CLOUDY (CLEAR); BILIRUBIN,URINE NEGATIVE (NEGATIVE); BLOOD, URINE TRACE-I (NEGATIVE); COLOR,URINE YELLOW (YELLOW); LEUKOCYTE ESTERASE ,URINE 3+ (NEGATIVE); NITRITE, URINE NEGATIVE (NEGATIVE); PH,URINE 6.5 (5.0-9.0); UGLUCOSE NEGATIVE (NEGATIVE)
[2022-04-06] MEDS ORDERED: VANCOMYCIN 1,000 MG in DEXTROSE 5% 250 ML IV ONE (08:35)
[2022-04-06] MEDS ORDERED: MEROPENEM 1,000 MG in NACL 0.9% 50 ML IV ONE (08:35)
[2022-04-06] MEDS ORDERED: MEROPENEM 1,000 MG VIAL IV ONE ×2 (08:39→09:18)
[2022-04-06 08:41] LABS: RBC,URINE 0-5 /HPF (0-5)
[2022-04-06 08:43] LABS: OTHER CASTS, URINE None Seen /LPF (None Seen)
--- NOTE | 2022-04-06 09:10 | NUR ---
carol swabbed and given to phleb at this time
[2022-04-06 09:48] LABS: PROTHROMBIN TIME 10.2 secs (10.8-13.4)
--- NOTE | 2022-04-06 10:00 | NUR ---
pt verbalizing not wanting iv meds or tx at this time. md hernandez made aware.
--- NOTE | 2022-04-06 10:06 | NUR ---
Spoke to Donna, patients guardian, of patients refusal of treatment and IV. Informed her of benefits and risks of refusal of treatment and IV. Per Donna "do what you got to do." Donna is aware and said to restart IV and continue with current treatment.
[2022-04-06 10:24] VITALS: BP 106/66
--- NOTE | 2022-04-06 10:42 | NUR ---
Spoke to Donna, obtained [facility] consent. Donna said "its ok." Dr. Cevallos made aware.
[2022-04-06] MEDS ORDERED: ZOLPIDEM 5 MG TAB PO PRN (11:05)
[2022-04-06] MEDS ORDERED: ONDANSETRON 4 MG/2 ML VIAL IM/IVP PRN (11:05)
[2022-04-06] MEDS ORDERED: ACETAMINOPHEN 325 MG TAB PO PRN (11:05)
[2022-04-06] MEDS ORDERED: DOCUSATE SODIUM 100 MG GELCAP PO PRN (11:05)
[2022-04-06] MEDS ORDERED: guaiFENesin DM 200/20 MG-10 ML 10 ML UDC PO PRN (11:05)
[2022-04-06] MEDS ORDERED: VANCOMYCIN 1,000 MG VIAL ONE (11:15)
--- NOTE | 2022-04-06 11:50 | NUR ---
Dr. Cevallos performing procedure at bedside.
[2022-04-06] MEDS: NACL 0.9% 1,000 ML IV SCH (11:57)
--- NOTE | 2022-04-06 12:00 | NUR ---
CALLED BY ER STAFF TO BED 11 STATING PT WAS DESATURATING. ARRIVED AND FOUND THE PT SATURATION AT 89%. I SUCTIONED COPIUS AMOUNTS OF CREAM COLORED SECRETIONS FROM THE PATIENTS TRACH. POST SUCTIONING THE PT, THE PT ASKED FOR WATER, I ASKED THE RN IF THE PT WAS NPO, TO WHICH SHE STATED, NO, BUT SAFETY FIRST. I ACKNOWLEDGED THE RN'S CONCERN, HOWEVER I PROCEEDED TO GIVE THE PT 3 ICE CHIPS TO MOISTEN HER MOUTH. I STAYED WITH THE PATIENT TO ENSURE THE ICE MELTED, AND THE PATIENT WAS IN NO DISTRESS. WILL CONTINUE TO MONITOR.
--- NOTE | 2022-04-06 12:06 | NUR ---
RT gave water to patient. Per RT he is familiar with patient.
[2022-04-06 12:30] LABS: MAGNESIUM 2.3 mg/dL (1.8-2.4); PHOSPHORUS 4.6 mg/dL (2.5-4.9)
--- NOTE | 2022-04-06 14:15 | NUR ---
Patient will be admitted to care of DR. LOMBARDI. Admited to TELEMETRY. Will go to room 108-B. Belongings list completed. Report to XIMENA GALARZA.
[2022-04-06 14:25] VITALS: BP 110/55
--- NOTE | 2022-04-06 14:25 | NUR ---
RECEIVED PATIENT FROM ER NURSE VIA ABIDA. PT ADMITTED FOR PNEUMONIA. PT IS AOX3, ABLE TO MAKE NEEDS KNOWN. RESPIRATIONS EVEN AND [facility]LAB[facility] FIO2, 400 VT, RATE 12, AND PEEP 5. NO DISTRESS NOTED. SKIN IS WARM, DRY, AND INTACT. NOTED SMALL REDNESS ON RIGHT BUTTOCKS. HAS LEFT UPPER CHEST MIDLINE INFUSING FLUIDS ORDERED. ABD IS SOFT, FLAT, AND NON-DISTENDED. BOWEL SOUNDS ACTIVE IN ALL QUADRANTS. HAS A G-TUBE IN PLACE AND CLAMPED. DENIES PAIN AT THE MOMENT. PLAN OF CARE DISCUSSED. SAFETY PRECAUTIONS IN PLACE. CALL LIGHT WITHIN REACH. WILL CONTINUE TO MONITOR.
[2022-04-06] MEDS ORDERED: VANCOMYCIN PER PHARMACY MC PRN (14:35)
--- NOTE | 2022-04-06 17:00 | NUR ---
RT AT BEDSIDE.
[2022-04-06] MEDS: PIPERACILLIN/TAZOBACTAM 3.375 GM in DEXTROSE 5% 50 ML IV SCH ×2 (17:06→23:08)
--- NOTE | 2022-04-06 17:30 | NUR ---
CHECKED ON PATIENT. PT IS STABLE. NO DISTRESS NOTED. WILL CONTINUE TO MONITOR.
--- NOTE | 2022-04-06 19:33 | NUR ---
ENDORSED TO GLASS CLEANING MACHINE TENDER NURSE FOR CONTINUITY OF CARE. PT IS STABLE.
--- NOTE | 2022-04-06 19:35 | NUR ---
RECEIVED REPORT FROM AM RN. PATIENT IS ASLEEP. NO S/SX OF PAIN NOR DISCOMFORT. TRACH TO VENT WITH SETTING OF AC-24 TV-400 FI02-40% PEEP-5 RATE -12 SAT 96%, NO ACUTE RESPIRATORY DISTRESS NOTED. G-TUBE CLAMPED AT THIS TIME TO START FEEDING OF GLUCERNA 1.2 AT 10 ML ORDERED. PLACEMENT VERIFIED VIA AUSCULTATION, NO RESIDUAL NOTED AT THIS TIME, HEAD OF THE BED ELEVATED AT 35 DEGREES FOR ASPIRATION PRECAUTION. SKIN WARM AND DRY TO TOUCH. ON BEDREST, PACK CATHETER DRAINING CLEAR YELLOW URINE BY GRAVITY. BED IN THE LOWEST AND LOCKED POSITION FOR SAFETY, BED ALARM ON, CALL LIGHT WITHIN REACH.
[2022-04-06] MEDS ORDERED: DOCUSATE SODIUM 250 MG GELCAP PO SCH (21:00)
[2022-04-06 21:09] VITALS: BP 105/59
--- NOTE | 2022-04-06 22:00 | NUR ---
REPOSITIONED FOR COMFORT. ORAL CARE RENDERED. HEAD OF THE BED ELEVATED.
[2022-04-07] VITALS (7 sets, daily range): BP systolic 91–119; BP diastolic 42–80
--- NOTE | 2022-04-07 00:19 | NUR ---
NO RESIDUAL FROM G-TUBE, G-TUBE FEEDING OF GLUCERNA 1.2 AT 10 ML INFUSING ORDERED. HEAD OF THE BED AT 35 DEGREES
[2022-04-07] MEDS ORDERED: VANCOMYCIN 1,000 MG in DEXTROSE 5% 250 ML IV SCH (01:00)
--- NOTE | 2022-04-07 02:00 | NUR ---
PATIENT ASLEEP. NO S/SX OF PAIN NOR DISCOMFORT. CALL LIGHT WITHIN REACH.
[2022-04-07] MEDS: NACL 0.9% 1,000 ML IV SCH ×2 (03:45→20:37)
[2022-04-07] MEDS: PIPERACILLIN/TAZOBACTAM 3.375 GM in DEXTROSE 5% 50 ML IV SCH ×4 (05:00→23:18)
--- NOTE | 2022-04-07 06:05 | NUR ---
AM CARE RENDERED, ORAL CARE DONE. ALL NEEDS ATTENDED TO. SAFETY PRECAUTIONS MAINTAINED DURING THE SHIFT. NO RESIDUAL FROM G-TUBE. HEAD OF THE BED AT 35 DEGREES.
--- NOTE | 2022-04-07 07:20 | NUR ---
RECEIVED REPORT FROM COMBAT INFORMATION CENTER OFFICER FOR CONTINUE OF CARE. PT RESTING ON BED, ON TRACH VENT, NO DISTRESS NOTED. ASSISTED PT WITH WATER DRINK PT REQUESTED. ALL SAFETY MEASURE IN PLACE, CALL LIGHT WITHIN REACH, WILL CONTINUE TO MONITOR.
[2022-04-07 07:28] LABS: BASOPHILS # (AUTO) 0.1 K/uL (0.00-0.22); BASOPHILS % (AUTO) 0.6 % (0.0-2.0); EOSINOPHILS # (AUTO) 0.4 K/uL (0-0.4); EOSINOPHILS % (AUTO) 3.5 % (0.0-4.0); HEMATOCRIT 29.7 % (36-48); HEMOGLOBIN 9.2 g/dL (12.0-16.0); LYMPHOCYTES # (AUTO) 1.6 K/uL (2.5-16.5); LYMPHOCYTES % (AUTO) 15.7 % (20.5-51.1); MEAN CORPUSCULAR HEMOGLOBIN 25 pg (27-31); MEAN CORPUSCULAR HGB CONC 31 g/dL (33-37); MEAN CORPUSCULAR VOLUME 79.4 fL (80-94); MONOCYTES % (AUTO) 9.9 % (1.7-9.3); NEUTROPHILS # (AUTO) 7.3 K/uL (1.8-7.7); NEUTROPHILS % (AUTO) 70.3 % (42.2-75.2); PLATELET COUNT (AUTO) 552 K/uL (140-450); RED BLOOD CELL COUNT(AUTO) 3.74 MIL/uL (4.20-5.40); RED CELL DISTRIBUTION WIDTH 22.1 % (11.6-13.7); WHITE BLOOD COUNT (AUTO) 10.4 K/uL (4.8-10.8)
[2022-04-07 07:44] LABS: ANION GAP 12.8 (8-16); CARBON DIOXIDE 29.6 mmol/L (21-32); CREATININE 0.6 mg/dL (0.6-1.3); POTASSIUM 3.4 mmol/L (3.5-5.1)
[2022-04-07] MEDS: DILTIAZEM 30 MG TAB GT SCH ×3 (08:43→16:07)
[2022-04-07] MEDS: FUROSEMIDE 20 MG TAB PO SCH (08:43)
[2022-04-07] MEDS: amLODIPine 5 MG TAB PO SCH (08:44)
[2022-04-07] MEDS: lisinopriL 20 MG TAB PO SCH (08:44)
[2022-04-07] MEDS: POTASSIUM CHLORIDE 10 MEQ TABER PO PRN (08:45)
[2022-04-07] MEDS: DOCUSATE 100 MG/10 ML UDC GT SCH ×2 (08:46→20:19)
--- NOTE | 2022-04-07 08:46 | NUR ---
MEDICATION ADMINISTERED VIA G TUBE, NOTED 5ML RESIDUAL, FLUSHED 30ML WATER BEFORE AND AFTER MEDICATION. PT HAS NOT DISTRESS AND TOLERATED WELL AT THIS TIME
[2022-04-07] MEDS ORDERED: PANTOPRAZOLE 40 MG TABEC PO SCH (09:00)
--- NOTE | 2022-04-07 09:12 | NUR ---
PATIENT HAS BEEN SCREENED AND CATEGORIZED HIGH NUTRITION RISK. PATIENT WILL BE SEEN WITHIN 1-2 DAYS OF ADMISSION. 04/07/[address]
[2022-04-07] MEDS: PANTOPRAZOLE 40 MG INJ VIAL IVP SCH (09:16)
--- NOTE | 2022-04-07 09:17 | NUR ---
PT POINTED TO HIS BACK AND FLACC 3, MEDICATED WITH TYLENOL 650MG PO FOR PAIN
--- NOTE | 2022-04-07 10:17 | NUR ---
PT RESTING ON BED, ON TRACH VENT, NO DISTRESS NOTED, FLACC O. PAIN MEDICATION EFFECTIVE.
--- NOTE | 2022-04-07 12:00 | NUR ---
NOTIFIED LAB STAFF JOSIANE PER PHARMACY PT'S TROUGH VANCOMYCIN NEED TO BE DRAW AT SCHEDULED TIME.
--- NOTE | 2022-04-07 12:25 | NUR ---
NOON MEDICATION ADMINISTERED VIA G TUBE, NOTED 10ML RESIDUAL, WATER 30ML FLUSHED BEFORE AND AFTER MEDICATION. PT RESTING ON BED, NO DISTRESS NOTED AT THIS TIME. CALL LIGHT WITHIN REACH
--- NOTE | 2022-04-07 12:43 | NUR ---
RECEIVED PHONE CALL FROM LAB AND PHARMACY REGARDING VANCO TROUGH 24.3 TODAY, PER PHARMACY NO DOSE FOR VANCOMYCIN TODAY AND WILL DRAW VANCO TROUGH TOMORROW. Addendum: 04/07/22 at 1246 by Feliciano Wiggins RN WRONG PT Addendum: 04/07/22 at 1249 by Feliciano Wiggins RN CORRECT PT. RECEIVED PHONE CALL FROM LAB AND PHARMACY REGARDING VANCO TROUGH 24.3 TODAY, PER PHARMACY NO DOSE FOR VANCOMYCIN TODAY AND WILL DRAW VANCO TROUGH TOMORROW. Addendum: 04/07/22 at 1351 by Feliciano Wiggins RN CORRECT PT.
--- NOTE | 2022-04-07 12:46 | NUR ---
RECEIVED PHONE CALL FROM LAB AND PHARMACY REGARDING VANCO TROUGH 24.3 TODAY, PER PHARMACY NO DOSE FOR VANCOMYCIN TODAY AND WILL DRAW VANCO TROUGH TOMORROW.
[2022-04-07] MEDS ORDERED: ALBUTEROL SULFATE/IPRATROPIU 3 ML SOL IH PRN (12:50)
--- NOTE | 2022-04-07 14:46 | NUR ---
PT RESTING ON BED, ON TRACH VENT, NO DISTRESS NOTED AT THIS TIME. ALL SAFETY MEASURE IN PLACE, CALL LIGHT WITHIN REACH. WILL CONTINUE TO MONITOR.
--- NOTE | 2022-04-07 15:24 | NUR ---
ASSISTED PT UP ON THE BED, PT IS AWAKE, ALERT, BUT NON VERBAL. CALL LIGHT WITHIN REACH.
--- NOTE | 2022-04-07 15:24 | NUR ---
04/07/22 RD INITIAL ASSESSMENT COMPLETED PLEASE REFER TO NUTRITION ASSESSMENT UNDER CARE ACTIVITY FOR ESTIMATED NUTRITIONAL NEEDS. 1. RD RECOMMENDED GLUCERNA 1.2 @ 50ML/HR -FWF: 100ML Q 4 HRS OR PER MD -WILL PROVIDE 100% OF ESTIMATED NUTRIENT NEEDS 2. MONITOR NUTRITION-RELATED LAB VALUES 3. RD TO FOLLOW-UP 2-3 DAYS, HIGH RISK REVIEWED BY HOLLI UMANZOR RD
--- NOTE | 2022-04-07 15:41 | NUR ---
PT. WITH LOW MARITZA SCALE AT MODERATE TO HIGH RISK, CONTINUE TO FOLLOW PRESSURE INJURY PREVENTION INTERVENTIONS. PT. ADMITTED WITH SKIN ALTERATION TO RIGHT BUTTOCK. OLD HEALING SCAR TISSUE WITH SKIN MOIST,NON-BLANCHABLE RED 1X1CM FROM MOISTURE. BARRIER CREAM APPLIED, FOAM DRESSING APPLY. -POSITIONING: TURN AND REPOSITION PATIENT Q 2H OR SOONER USE PILLOWS TO KEEP BONY PROMINENCES FROM DIRECT CONTACT WITH SURFACES USE REPOSITIONING WEDGES TO PROVIDE 30-DEGREE ANGLE FOR SIDE LYING POSITIONS OFFLOADING OR FOAM DRESSING TO ALL TUBING TO PREVENT MEDICAL DEVICES RELATED PRESSURE INJURY -RE-EVALUATING AND MANAGING INCONTINENCE MONITOR SKIN CONDITION DURING POSITION CHANGE DO NOT MASSAGE REDNESS, BONY PROMINENCES FREQUENT CARMINE-CARE AND PROVIDE BARRIER CREAMS PRN IF SOILING MOISTURE CONTROL BY OFFER BED ZEE/URINAL /ABSORBENT PAD TO WICK AND HOLD MOISTURE KEEP SKIN DRY AND PROTECT FROM FRICTION -MANAGE FRICTION/SHEAR/MOBILITY KEEP HOB AT THE LOWEST LEVEL OF ELEVATION NO MORE THAN 30 DEGREE UNLESS OTHERWISE CONTRAINDICATED USE LIFT SHEET OR TRANSFER DEVICE TO MOVE PATIENT AND PREVENT LATERAL SHEER. PROTECT HEELS, ELBOWS BONY PROMINENCES WITH SKIN BERRIES OR FOAM DRESSING IF EXPOSED TO FRICTION OFFLOAD BILATERAL HEELS BY PLACING PILLOWS UNDER CALVES AT ALL TIMES, UNLESS OTHERWISE CONTRAINDICATED -PRESSURE REDISTRIBUTION SURFACE THERAPY SPIKE ISOFLEX MATTRESS -NUTRITION: PLEASE FOLLOW RD RECOMMENDATIONS AND OFFER NUTRITION SUPPLEMENTS IF ORDERED. PLEASE CONTACT WOUND CARE NURSE FOR ANY QUESTION AND CHANGE OF WOUND CONDITION.
--- NOTE | 2022-04-07 16:11 | NUR ---
CARDIZEM ADMINISTERED VIA G TUBE, NOTED RESIDUAL 5ML, PLUSH 30ML WATER BEFORE AND AFTER MEDICATION. PT TOLERATED WELL.
--- NOTE | 2022-04-07 17:20 | NUR ---
ZOSYN ADMINISTERED VIA IBPB AT THIS TIME, PT REQUESTING SOME ICE CHIP, HELPED PT HAVE TWO ICE CHIPS TO CHEW AT THIS TIME. PT USE GESTURE TO SHOW TRACH SITE IN TOO TIGHT, CALLED RT AND RT SAID WILL COME TO CHECK.
--- NOTE | 2022-04-07 18:28 | NUR ---
PT SIT AT BEDSIDE HAVING HER DINNER, TEMPERATURE CHECK AT THIS TIME 98.3. EDUCATED PT IF SHE FELL UNCOMFORTABLE OR FEEL HOT CALL NURSE RIGHT AWAY. ALL QUESTION ANSWERED, SAFETY MEASURE IN PLACE, CALL LIGHT WITHIN REACH. Addendum: 04/07/22 at 1830 by Feliciano Wiggins RN WRONG PT
--- NOTE | 2022-04-07 18:55 | NUR ---
WILL ENDORSED TO BOOK SEWING MACHINE OPERATOR FOR CONTINUITY OF PT CARE.
--- NOTE | 2022-04-07 19:39 | NUR ---
GET THE REPORT FROM MORNING NURSE , PATIENT IS LYING ON BED, PATIENT IS NON VERBLE, PATIENT IS ALERT BUT NON VERBLE, PATIENT HAS G TUBE, PATIENT IS ON, VENT TO TRACH, PATIENT HAS FOLLY CATHETER, CALL LIGHT IS WITHIN THE REACH, WILL CONTINUE TO MONITOR PATIENT.
--- NOTE | 2022-04-07 20:05 | NUR ---
PATIENT IS LYING ON BED, NO ANY COMPLAIN OF PAIN OR SHORTNESS OF BREATH AT THIS TIME, VITAL SIGN IS WITHIN THE NORMAL RANGE, ALL SCHEDULE MEDICATION IS GIVEN PER DOCTOR ORDER , CALL LIGHT IS WITHIN THE REACH, WILL CONTINUE TO MONITOR PATIENT.
[2022-04-07] MEDS: ALPRAZolam 0.5 MG TAB GT PRN (20:19)
--- NOTE | 2022-04-07 20:29 | NUR ---
PATIENT IS COMPLAINING OF ANXIETY, XANAX 0.5 MG PRN VIA G TUBE, IS GIVEN PER DOCTOR ORDER, VITAL SIGN IS WITHIN THE NORMAL RANGE, CALL LIGHT IS WITHIN THE REACH, WILL CONTINUE TO MONITOR PATIENT.
--- NOTE | 2022-04-07 22:24 | NUR ---
GET THE CALL FROM LAB PERSON ZULMA TO NOTIFY BLOOD RESULT FOR BLOOD CULTURE IS POSITIVE FOR GRAM POSITIVE COCCI,MASSAGE DOCTOR EFFIE AND BRUNO ABOUT PATIENT CULTURE RESULT, NO NEW ORDER FROM DOCTOR EFFIE ,WAITING FOR DOCTOR BRUNO TO RESPONSE, CALL LIGHT IS WITHIN THE REACH, WILL CONTINUE TO MONITOR PATIENT.
[2022-04-07] MEDS: HYDROcodone/APAP 7.5/325 MG 1 TAB PO PRN (23:11)
--- NOTE | 2022-04-07 23:11 | NUR ---
PATIENT IS COMPLAINING OF PAIN IN HEADACHE AND ABDOMINAL / , GAVE NORCO 7.5MG PRN VIA G TUBE, ALSO PATIENT COMPLAINING OF NAUSEA , GAVE ZOFRAN 4MG IV PRN PER DOCTOR ORDER,VITAL SIGN IS WITHIN THE NORMAL RANGE, WILL REASSESS PAIN IN HOUR, CALL LIGHT IS WITHIN THE REACH, WILL CONTINUE TO MONITOR PATIENT.
[2022-04-08] VITALS: BP 110/69
--- NOTE | 2022-04-08 00:10 | NUR ---
PATIENT IS LYING ON BED, NO ANY COMPLAIN OF PAIN AT THIS TIME, NO ANY RESPIRATORY DISTRESS IS NOTED AT THIS TIME,VITAL SIGN IS WITHIN THE NORMAL RANGE, CALL LIGHT IS WITHIN THE REACH, WILL CONTINUE TO MONITOR PATIENT.
--- NOTE | 2022-04-08 01:20 | NUR ---
220 trach care done
[2022-04-08] MEDS: HYDROcodone/APAP 7.5/325 MG 1 TAB PO PRN ×4 (03:37→20:38)
--- NOTE | 2022-04-08 03:40 | NUR ---
PATIENT IS COMPLAINING OF PAIN IN HAD 03/23, GAVE NORCO PO PRN PER DOCTOR ORDER, VITAL SIGN IS WITHIN THE NORMAL RANGE, WILL REASSESS THE PAIN LAVAL IN HOUR, CALL LIGHT IS WITHIN THE REACH, WILL CONTINUE TO MONITOR PATIENT.
[2022-04-08 04:00] VITALS: BP 111/60
--- NOTE | 2022-04-08 04:29 | NUR ---
PATIENT IS LYING ON BED, NO ANY COMPLAIN OF PAIN OR SHORTNESS OF BREATH AT THIS TIME, VITAL SIGN IS WITHIN THE NORMAL RANGE, CALL LIGHT IS WITHIN THE REACH, WILL CONTINUE TO MONITOR PATIENT.
--- NOTE | 2022-04-08 04:55 | NUR ---
PATIENT IS LYING ON BED, NO ANY COMPLAIN OF PAIN OR SHORTNESS OF BREATH AT THIS TIME VITAL SIGN IS WITHIN THE NORMAL RANGE, , CALL LIGHT IS WITHIN THE REACH, WILL CONTINUE TO MONITOR PATIENT.
[2022-04-08] MEDS: PIPERACILLIN/TAZOBACTAM 3.375 GM in DEXTROSE 5% 50 ML IV SCH ×3 (05:20→17:39)
--- NOTE | 2022-04-08 06:09 | NUR ---
PATIENT IS LYING ON BED, ALL SCHEDULE MEDICATION IS GIVEN PER DOCTOR ORDER, CALL LIGHT IS WITHIN THE REACH, WILL CONTINUE TO MONITOR PATIENT.
--- NOTE | 2022-04-08 07:20 | NUR ---
GAVE THE REPORT TO MORNING NURSE ZAIN FOR CONTINUOS OF CARE, PATIENT IS STABLE.
--- NOTE | 2022-04-08 07:30 | NUR ---
RECEIVED REPORT FROM INKING MACHINE TENDER NURSE FOR CONTINUITY OF CARE, POC DISCUSSED. PT IS RESTING IN BED, TRACH TO VENT SATURATING AT 100%. ON TELE MONITOR. PT IS ALERT ABLE TO MAKE NEEDS KNOW, APHASIC. ON TUBE FEEDING, GLUCERNA 1.2 AT 50 WITH 100CC FREE WATER FLUSHES Q4HR. PT HAS A LEFT UPPER CHEST TRIPLE LUMEN RUNNING NS @ 60. ALL SAFETY MEASURES IN PLACE, CALL LIGHT WITHIN REACH. WILL CONTINUE TO MONITOR.
[2022-04-08 07:43] LABS: BASOPHILS % (AUTO) 0.5 % (0.0-2.0); EOSINOPHILS # (AUTO) 0.5 K/uL (0-0.4); EOSINOPHILS % (AUTO) 5.2 % (0.0-4.0); HEMATOCRIT 26.2 % (36-48); HEMOGLOBIN 8.2 g/dL (12.0-16.0); LYMPHOCYTES # (AUTO) 1.2 K/uL (2.5-16.5); LYMPHOCYTES % (AUTO) 12.7 % (20.5-51.1); MEAN CORPUSCULAR HEMOGLOBIN 25 pg (27-31); MEAN CORPUSCULAR HGB CONC 31 g/dL (33-37); MEAN CORPUSCULAR VOLUME 79.1 fL (80-94); MONOCYTES % (AUTO) 9.9 % (1.7-9.3); NEUTROPHILS # (AUTO) 6.9 K/uL (1.8-7.7); NEUTROPHILS % (AUTO) 71.7 % (42.2-75.2); PLATELET COUNT (AUTO) 520 K/uL (140-450); RED BLOOD CELL COUNT(AUTO) 3.31 MIL/uL (4.20-5.40); RED CELL DISTRIBUTION WIDTH 21.8 % (11.6-13.7); WHITE BLOOD COUNT (AUTO) 9.7 K/uL (4.8-10.8)
[2022-04-08 08:00] VITALS: BP 91/64
[2022-04-08] MEDS: PANTOPRAZOLE 40 MG INJ VIAL IVP SCH (08:52)
[2022-04-08] MEDS: DOCUSATE 100 MG/10 ML UDC GT SCH ×2 (08:52→20:37)
[2022-04-08] MEDS: FUROSEMIDE 20 MG TAB PO SCH (08:52)
[2022-04-08] MEDS: amLODIPine 5 MG TAB PO SCH (08:52)
[2022-04-08] MEDS: lisinopriL 20 MG TAB PO SCH (08:53)
--- NOTE | 2022-04-08 09:00 | NUR ---
ARIADNA MEDICATION ADMINISTERED PER MD ORDER, PT TOLERATED ADMINISTRATION. NO RESIDUAL NOTED FROM G-TUBE. PT IV INTACT AND PATENT. IV FLUIDS REPLENISHED, PT REPORTS HAVING HEADACHE, WILL MEDICATE PER MD ORDER. ALL SAFETY MEASURES IN PLACE, CALL LIGHT WITHIN REACH. WILL CONTINUE TO MONITOR.
[2022-04-08] MEDS: DILTIAZEM 30 MG TAB GT SCH ×3 (09:07→17:00)
[2022-04-08 10:21] LABS: ANION GAP 12.7 (8-16); CARBON DIOXIDE 28.5 mmol/L (21-32); CREATININE 0.7 mg/dL (0.6-1.3); POTASSIUM 3.2 mmol/L (3.5-5.1)
[2022-04-08] MEDS: VANCOMYCIN 750 MG in DEXTROSE 5% 250 ML IV SCH ×2 (11:00→22:55)
--- NOTE | 2022-04-08 11:00 | NUR ---
PRN POT AND ARIADNA MEDICATION ADMINISTERED PER MED ORDER, PT TOLERATED ADMINISTRATION. ALL SAFETY MEASURES IN PLACE, CALL LIGHT WITHIN REACH. WILL CONTINUE TO MONITOR.
[2022-04-08] MEDS: POTASSIUM CHLORIDE 10 MEQ TABER PO PRN (11:23)
--- NOTE | 2022-04-08 12:00 | NUR ---
ARIADNA MEDICATION ADMINISTERED PER MD ORDER, PT TOLERATED ADMINISTRATION. PT STABLE IN BED WITH NO ACUTE S/S OF DISTRESS. ALL SAFETY MEASURES IN PLACE, CALL LIGHT WITHIN REACH. WILL CONTINUE TO MONITOR.
[2022-04-08] MEDS: NACL 0.9% 1,000 ML IV SCH (12:26)
--- NOTE | 2022-04-08 15:00 | NUR ---
PT HAS BEEN CLEANED, NEW SHEET, LINENS AND GOWN PROVIDED. SMALL BM NOTED, SACRAL WOUNDS DRESSING DRY AND INTACT. PT REMAINED STABLE THROUGHOUT CHANGING. ALL SAFETY MEASURES IN PLACE, CALL LIGHT WITHIN REACH. WILL CONTINUE TO MONITOR.
--- NOTE | 2022-04-08 15:30 | NUR ---
PRN PAIN MEDICATION ADMINISTERED PER MD ORDER, PT TOLERATED ADMINISTRATION. PT NODDED THAT ALL OTHER NEEDS ARE MET. ALL SAFETY MEASURES IN PLACE, CALL LIGHT WITHIN REACH. WILL CONTINUE TO MONITOR.
--- NOTE | 2022-04-08 17:30 | NUR ---
ARIADNA MED NON ADMINISTERED DUE TO DECREASED BP AND HR. PT EDUCATED AND NODDED IN AGREEMENT. ARIADNA ABX ADMINISTERED PER MD ORDER, PT TOLERATED ADMINISTRATION. ALL SAFETY MEASURES IN PLACE,C ALL LIGHT WITHIN REACH. WILL CONTINUE TO MONITOR.
--- NOTE | 2022-04-08 18:51 | NUR ---
PT HAS REMAINED STABLE THROUGHOUT THE SHIFT, ALL SAFETY MEASURES IN PLACE. CALL LIGHT WITHIN REACH. WILL BE ENDORSED TO SHRIMP BOAT CAPTAIN NURSE FOR CONTINUITY OF CARE.
--- NOTE | 2022-04-08 19:05 | NUR ---
RECEIVED PT FROM MORNING SHIFT NURSE. PT IS APHASIC, AOX2, AND CAN ACT WHAT SHE NEEDS. PT HAS TRACH TO VENT FI02-24%, VT-400 R- 12 AND PEEP OF 5. PT HAS CENTRAL LINE ON LEFT UPPER CHEST TRIPLE LUMEN AND HAS G-TUBE OF 500CC/HR WITH WATER FLUSH OF 100 EVERY 4 HRS. PATEIENT HAS STAGE 1 PRESSURE ULCER ON SACRAL AREA. ALL SAFETY MEASURES IMPLEMENTED. WHEELS OF BED LOCKED AND BED ON LOW POSITION. CALL LIGHT WITHIN REACH. Addendum: 04/08/22 at 2144 by Casie Castillo RN WRONG DATA INPUT IN G-TUBE FEEDING RATE. IT SHOULD BE G-TUBE OF 50CC/HR
--- NOTE | 2022-04-08 19:06 | NUR ---
RECEIVED PT FROM MORNING SHIFT NURSE. PT IS APHASIC, AOX2, AND CAN ACT WHAT SHE NEEDS. PT HAS TRACH TO VENT FI02-24%, VT-400 R- 12 AND PEEP OF 5. PT HAS CENTRAL LINE ON LEFT UPPER CHEST TRIPLE LUMEN AND HAS G-TUBE OF 50CC/HR WITH WATER FLUSH OF 100 EVERY 4 HRS. PATIENT HAS STAGE 1 PRESSURE ULCER ON SACRAL AREA. ALL SAFETY MEASURES IMPLEMENTED. WHEELS OF BED LOCKED AND BED ON LOW POSITION. CALL LIGHT WITHIN REACH.
[2022-04-08 20:00] VITALS: BP 117/67
--- NOTE | 2022-04-08 20:38 | NUR ---
PT COMPLAIN OF PAIN, PRN PAIN MEDICATION WAS GIVEN TO PT PER MD ORDER. PT TOLERATE IT WELL. ALL SAFETY MEASURES IMPLEMENTED. BED WHEELS LOCKED, BED IN LOW POSITION AND CALL LIGHT WITHIN REACH.
[2022-04-08] MEDS: ALPRAZolam 0.5 MG TAB GT PRN (22:21)
--- NOTE | 2022-04-08 22:55 | NUR ---
SCHEDULED MEDICATION WAS GIVEN TO PT PER MD ORDER. PT TOLERATE IT WELL. ALL SAFETY MEASURES IMPLEMENTED. BED WHEELS LOCKED, BED IN LOW POSITION AND CALL LIGHT WITHIN REACH.
[2022-04-09] MEDS: PIPERACILLIN/TAZOBACTAM 3.375 GM in DEXTROSE 5% 50 ML IV SCH ×3 (00:40→11:24)
[2022-04-09] MEDS: HYDROcodone/APAP 7.5/325 MG 1 TAB PO PRN ×3 (00:52→11:23)
--- NOTE | 2022-04-09 02:00 | NUR ---
PT IS ON SLEEP. CHEST RISE AND FALL SYMMETRICALLY NOTED WITH FI02-24 VT400, RATE 12 AND PEEP OF 5. ALL SAFETY MEASURES IMPLEMENTED, CALL LIGHT WITHIN REACH, BED WHEELS LOCK AND BED IN LOW POSITION.
--- NOTE | 2022-04-09 03:15 | NUR ---
REPLACED NEW G-TUBE FEEDING OF GLUCERNA AT 50CC/HR WITH WATER FLUSH OF 100 EVERY 4 HRS. ALL SAFETY MEASURES IMPLEMENTED. BED WHEELS LOCKED, BED IN LOW POSITION AND CALL LIGHT WITHIN REACH.
[2022-04-09 04:00] VITALS: BP 117/66
[2022-04-09] MEDS: NACL 0.9% 1,000 ML IV SCH (04:51)
[2022-04-09 06:07] LABS: FOLIC ACID 5.1 ng/mL (>3.0)
[2022-04-09 07:13] LABS: BASOPHILS % (AUTO) 0.5 % (0.0-2.0); EOSINOPHILS # (AUTO) 0.6 K/uL (0-0.4); EOSINOPHILS % (AUTO) 6.6 % (0.0-4.0); HEMOGLOBIN 8.3 g/dL (12.0-16.0); LYMPHOCYTES # (AUTO) 1.5 K/uL (2.5-16.5); LYMPHOCYTES % (AUTO) 15.9 % (20.5-51.1); MEAN CORPUSCULAR HEMOGLOBIN 25 pg (27-31); MEAN CORPUSCULAR HGB CONC 32 g/dL (33-37); MONOCYTES # (AUTO) 0.8 K/uL (0.8-1.0); NEUTROPHILS # (AUTO) 6.4 K/uL (1.8-7.7); PLATELET COUNT (AUTO) 488 K/uL (140-450); RED BLOOD CELL COUNT(AUTO) 3.28 MIL/uL (4.20-5.40); RED CELL DISTRIBUTION WIDTH 22.1 % (11.6-13.7); WHITE BLOOD COUNT (AUTO) 9.4 K/uL (4.8-10.8)
[2022-04-09 07:17] LABS: ANION GAP 10.4 (8-16); CARBON DIOXIDE 28.3 mmol/L (21-32); CREATININE 0.5 mg/dL (0.6-1.3); POTASSIUM 3.7 mmol/L (3.5-5.1)
--- NOTE | 2022-04-09 07:20 | NUR ---
PT IS STABLE. ENDORSED PT TO MORNING SHIFT NURSE FOR CONTINUITY OF CARE.
[2022-04-09 08:00] VITALS: BP 115/67
--- NOTE | 2022-04-09 08:00 | NUR ---
RECEIVED REPORT FROM HIWOT RN. PT A/O X3, HOWEVER APHASIC. TRACH TO VENT. FIO2 24%, VT 400, RR 12, PEEP 5. O2 SATURATION @ 96%. HOB ELEVATED. GTUBE FEEDING INFUSING. 0ML RESIDUAL. GLUCERNA 1.2 @ 50 ML/HR WITH WATER FLUSH 100M. Q4HR. NS@ 60 ML/HR ON LEFT UPPER CHEST TRIPLE LUMEN. NEEDS ALL MET AT THIS TIME. SAFETY MEASURES IN PLACE.
[2022-04-09] MEDS: lisinopriL 20 MG TAB PO SCH (09:00)
[2022-04-09] MEDS: PANTOPRAZOLE 40 MG INJ VIAL IVP SCH (09:00)
[2022-04-09] MEDS: DOCUSATE 100 MG/10 ML UDC GT SCH (09:00)
[2022-04-09] MEDS: FUROSEMIDE 20 MG TAB PO SCH (09:01)
[2022-04-09] MEDS: amLODIPine 5 MG TAB PO SCH (09:01)
[2022-04-09] MEDS: DILTIAZEM 30 MG TAB GT SCH ×2 (09:02→12:24)
--- NOTE | 2022-04-09 09:16 | NUR ---
SPOKE WITH PHARMACIST AND STATES TO IGNORE THE VANCO RESULTS. NEW BLOOD DRAW AT 2200 TONIGHT. WILL ENDORSE TO NIGHTSHIFT TO WAIT FOR RESULTS BEFORE THE NEXT DOSE.
[2022-04-09] MEDS ORDERED: IV Zosyn IA (09:19)
[2022-04-09] MEDS ORDERED: IV Vancomycin (09:20)
--- NOTE | 2022-04-09 09:25 | NUR ---
PHYSICAL THERAPY CO-SIGN The Physical Therapy Progress Notes documented by Cotton Dispatcher have been reviewed. Reviewed/Co-Signed by: Es Camacho Documentation Done by: SHAD KUNZ PTA Addendum: 04/09/22 at 5034 by Es aCmacho PT Amended: Links added.
--- NOTE | 2022-04-09 11:01 | NUR ---
DC PLANNING: PATIENT HAS [place] [facility]ER[place] [facility] CM TO FOLLOW Addendum: 04/09/22 at 1246 by Anila Molina RN DC PLANNING: PATIENT IS [place]ING [place] [facility] [place] 3A NUMBER TO GIVE REPORT [phone]. TRANSPORT AUTH # [id number] WAS GIVEN BY ROSY AT [facility]. ARRANGED TRANSPORT WITH [facility] PROVIDE THE AUTH # [id number] FURNACE FEEDER TIME 1600 NOTIFIED SAGE CHARGE NURSE. CM TO FOLLOW
[2022-04-09] MEDS: VANCOMYCIN 750 MG in DEXTROSE 5% 250 ML IV SCH (11:23)
--- NOTE | 2022-04-09 11:23 | NUR ---
PT WITH BM. ASSISTED DOLPHIN RESEARCHER WITH HYGIENIC CARE. R BUTTOCK DRESSING CHANGED. PT TOLERATED WELL. HOB ELEVATED. O2 SATURATION @ 96%. NEEDS ALL MET AT THIS TIME. SAFETY MEASURES IN PLACE.
[2022-04-09 12:00] VITALS: BP 115/43
[2022-04-09 14:09] VITALS: BP 115/43
--- NOTE | 2022-04-09 14:45 | NUR ---
REPORT GIVEN TO VENANCIO FROM [facility] [place].
--- NOTE | 2022-04-09 16:00 | NUR ---
DISCHARGE INSTRUCTIONS GIVEN TO PT. PT SIGNED. PT STABLE. IN NO DISTRESS. DISCHARGE PAPERWORK GIVEN TO TRANSPORT TEAM. PT TRANSPORTED OUT VIA GURNEY.
== END 2022-04-09 15:50 | DRG 871 ==
LOC: MED 05:37 → MTU 11:06
PROVIDERS: ADMIT Student in an Organized Health Care Education/Training Program; ATTEND Student in an Organized Health Care Education/Training Program
PROC: 5A1945Z Respiratory Ventilation, 24-96 Consecutive Hours (ICD-10-PCS; principal; 2022-04-06)
PROC: 02HV33Z Insertion of Infusion Device into Superior Vena Cava, Percutaneous Approach (ICD-10-PCS; 2022-04-06)
DX: A41.9 Sepsis, unspecified organism (principal); E43 Unspecified severe protein-calorie malnutrition; J69.0 Pneumonitis due to inhalation of food and vomit; J96.20 Acute and chronic respiratory failure, unspecified whether with hypoxia or hypercapnia; Z99.11 Dependence on respirator [ventilator] status; E87.1 Hypo-osmolality and hyponatremia; J44.0 Chronic obstructive pulmonary disease with (acute) lower respiratory infection; N39.0 Urinary tract infection, site not specified; Y95 Nosocomial condition; J45.909 Unspecified asthma, uncomplicated; D75.839 Thrombocytosis, unspecified; K80.20 Calculus of gallbladder without cholecystitis without obstruction; E78.5 Hyperlipidemia, unspecified; D64.9 Anemia, unspecified; B96.5 Pseudomonas (aeruginosa) (mallei) (pseudomallei) as the cause of diseases classified elsewhere; Z20.822 Contact with and (suspected) exposure to COVID-19; I11.0 Hypertensive heart disease with heart failure; I50.9 Heart failure, unspecified; R13.10 Dysphagia, unspecified; Z85.3 Personal history of malignant neoplasm of breast; Z93.1 Gastrostomy status; Z93.0 Tracheostomy status; Z90.13 Acquired absence of bilateral breasts and nipples; Z86.73 Personal history of transient ischemic attack (TIA), and cerebral infarction without residual deficits
CPT/HCPCS: 36415; 36556; 70450; 71045; 80048; 80053; 80202; 81001; 82150; 82607; 82728; 82746; 83540; 83605; 83690; 83735; 83880; 84100; 84484; 85025; 85045; 85610; 85730; 87040; 87070; 87081; 87086; 87205; 89220; 93005; 94002; 94003; 94640; 96365; 96366; 96367; 97110; 97163-GP; 97530; 99285; C9113; J2185; J2405; J2543; J3370; J7060; Q0092

== ENCOUNTER 2023-07-10 15:18 | Inpatient (IN) | payer OTHER, MEDICAID ==
[~2023-07-10] VITALS: Ht 157.5 cm; Wt 62.2 kg
[~2023-07-10 15:18] MED LIST changes: +ALPR0.5T2 GT; -AMIO200T66 PO; +DILT30TA18 GT; +DOCU250S72 GT; +IV Vancomycin; -IV Vancomycin IV; +IV Zosyn IA
[2023-07-10 15:30] VITALS: BP 100/60; PULSE 98; RESP 18; TEMP 98
[2023-07-10 16:22] LABS: BASOPHILS % (AUTO) 0.4 % (0.0-2.0); EOSINOPHILS # (AUTO) 0.1 K/uL (0-0.4); EOSINOPHILS % (AUTO) 1.1 % (0.0-4.0); HEMATOCRIT 33.4 % (36-48); HEMOGLOBIN 10.4 g/dL (12.0-16.0); LYMPHOCYTES # (AUTO) 2.3 K/uL (2.5-16.5); LYMPHOCYTES % (AUTO) 22.1 % (20.5-51.1); MEAN CORPUSCULAR HEMOGLOBIN 24 pg (27-31); MEAN CORPUSCULAR HGB CONC 31 g/dL (33-37); MONOCYTES # (AUTO) 0.8 K/uL (0.8-1.0); MONOCYTES % (AUTO) 7.7 % (1.7-9.3); NEUTROPHILS # (AUTO) 7.1 K/uL (1.8-7.7); NEUTROPHILS % (AUTO) 68.7 % (42.2-75.2); PLATELET COUNT (AUTO) 309 K/uL (140-450); RED BLOOD CELL COUNT(AUTO) 4.39 MIL/uL (4.20-5.40); RED CELL DISTRIBUTION WIDTH 16.7 % (11.6-13.7); WHITE BLOOD COUNT (AUTO) 10.3 K/uL (4.8-10.8)
[2023-07-10 16:33] LABS: ALBUMIN 2.7 g/dL (3.4-5.0); ANION GAP 9.8 (8-16); CALCIUM 9.2 mg/dL (8.5-10.1); CARBON DIOXIDE 32.3 mmol/L (21-32); CREATININE 0.7 mg/dL (0.6-1.3); POTASSIUM 4.1 mmol/L (3.5-5.1); TOTAL BILIRUBIN 0.3 mg/dL (0.0-1.0); TOTAL PROTEIN, SERUM 7.3 g/dL (6.4-8.2)
[2023-07-10 16:36] LABS: LACTIC ACID 0.9 mmol/L (0.4-2.0)
[2023-07-10 17:57] VITALS: O2SAT 96
[2023-07-10] MEDS ORDERED: NACL 0.9% 500 ML IV ONE (18:50)
[2023-07-10] MEDS ORDERED: NACL 0.9% 1,000 ML IV ONE (18:50)
[2023-07-10 19:20] VITALS: O2SAT 96
[2023-07-10] MEDS ORDERED: PIPERACILLIN/TAZOBACTAM 3.375 GM in DEXTROSE 5% 50 ML IV ONE (19:20)
[2023-07-10] MEDS ORDERED: VANCOMYCIN 1,000 MG in DEXTROSE 5% 250 ML IV ONE (19:20)
[2023-07-10] MEDS ORDERED: PIPERACILLIN/TAZOBACTAM 3.375 GM VIAL IV ONE (19:41)
[2023-07-10] MEDS ORDERED: VANCOMYCIN 1,000 MG VIAL ONE (20:13)
[2023-07-11] VITALS (18 sets, daily range): BP systolic 103–130; BP diastolic 41–79; PULSE 63–85; RESP 15–24; TEMP 96.8–97; O2SAT 95–100
[2023-07-11] MEDS ORDERED: ONDA-188 PO (00:02)
[2023-07-11] MEDS ORDERED: ACET-2619 PO (00:02)
[2023-07-11] MEDS ORDERED: IPRA15SP NS (00:02)
[2023-07-11] MEDS ORDERED: AMLO5TAB PO (00:02)
[2023-07-11] MEDS ORDERED: FERR75LI22 PO (00:02)
[2023-07-11] MEDS ORDERED: MAGN400S60 PO (00:02)
[2023-07-11] MEDS ORDERED: HYDROcodone/APAP 5/325 MG 1 TAB TAB GT PRN (04:30)
[2023-07-11] MEDS ORDERED: ACETAMINOPHEN 325 MG TAB GT PRN (04:30)
[2023-07-11] MEDS ORDERED: ONDANSETRON 4 MG/2 ML VIAL IVP PRN (04:30)
[2023-07-11] MEDS ORDERED: IPRATROPIUM 0.02% 0.5 MG/2.5 ML NEBU INH SCH (07:00)
[2023-07-11] MEDS ORDERED: ALBUTEROL 0.083% 2.5 MG/3 ML NEBU INH SCH (07:00)
[2023-07-11] MEDS: ALBUTEROL SULFATE/IPRATROPIU 3 ML SOL IH SCH ×3 (07:02→18:44)
[2023-07-11] MEDS ORDERED: PIPERACILLIN/TAZOBACTAM 3.375 GM VIAL IV ONE (07:05)
[2023-07-11] MEDS: DEXT 5% / NACL 0.45% 1,000 ML IV SCH (07:09)
[2023-07-11] MEDS: PIPERACILLIN/TAZOBACTAM 3.375 GM in DEXTROSE 5% 50 ML IV SCH ×3 (07:09→21:04)
[2023-07-11] MEDS: LORazepam 2 MG/ML VIAL IVP PRN ×2 (07:42→21:04)
[2023-07-11 09:53] LABS: BASOPHILS # (AUTO) 0.1 K/uL (0.00-0.22); BASOPHILS % (AUTO) 0.9 % (0.0-2.0); EOSINOPHILS # (AUTO) 0.3 K/uL (0-0.4); EOSINOPHILS % (AUTO) 2.6 % (0.0-4.0); HEMATOCRIT 32.1 % (36-48); LYMPHOCYTES # (AUTO) 1.6 K/uL (2.5-16.5); LYMPHOCYTES % (AUTO) 16.3 % (20.5-51.1); MEAN CORPUSCULAR HEMOGLOBIN 24 pg (27-31); MEAN CORPUSCULAR HGB CONC 31 g/dL (33-37); MEAN CORPUSCULAR VOLUME 75.8 fL (80-94); MONOCYTES # (AUTO) 0.7 K/uL (0.8-1.0); MONOCYTES % (AUTO) 6.9 % (1.7-9.3); NEUTROPHILS # (AUTO) 7.3 K/uL (1.8-7.7); NEUTROPHILS % (AUTO) 73.3 % (42.2-75.2); PLATELET COUNT (AUTO) 268 K/uL (140-450); RED BLOOD CELL COUNT(AUTO) 4.23 MIL/uL (4.20-5.40); RED CELL DISTRIBUTION WIDTH 16.9 % (11.6-13.7)
[2023-07-11 10:04] LABS: ANION GAP 10.7 (8-16); CALCIUM 9.1 mg/dL (8.5-10.1); CREATININE 0.6 mg/dL (0.6-1.3); POTASSIUM 3.7 mmol/L (3.5-5.1)
[2023-07-12] VITALS (14 sets, daily range): BP systolic 99–139; BP diastolic 61–82; PULSE 70–115; RESP 16–24; TEMP 96.1–98; O2SAT 95–100
[2023-07-12] MEDS: DEXT 5% / NACL 0.45% 1,000 ML IV SCH ×2 (00:30→20:30)
[2023-07-12] MEDS: ALBUTEROL SULFATE/IPRATROPIU 3 ML SOL IH SCH ×4 (00:40→19:13)
[2023-07-12] MEDS: PIPERACILLIN/TAZOBACTAM 3.375 GM in DEXTROSE 5% 50 ML IV SCH ×3 (05:43→21:29)
[2023-07-12 07:08] LABS: BASOPHILS % (AUTO) 0.3 % (0.0-2.0); EOSINOPHILS # (AUTO) 0.5 K/uL (0-0.4); EOSINOPHILS % (AUTO) 5.4 % (0.0-4.0); HEMATOCRIT 29.5 % (36-48); HEMOGLOBIN 9.2 g/dL (12.0-16.0); LYMPHOCYTES # (AUTO) 1.3 K/uL (2.5-16.5); LYMPHOCYTES % (AUTO) 13.3 % (20.5-51.1); MEAN CORPUSCULAR HEMOGLOBIN 24 pg (27-31); MEAN CORPUSCULAR HGB CONC 31 g/dL (33-37); MEAN CORPUSCULAR VOLUME 75.5 fL (80-94); MONOCYTES # (AUTO) 0.8 K/uL (0.8-1.0); MONOCYTES % (AUTO) 8.2 % (1.7-9.3); NEUTROPHILS # (AUTO) 6.9 K/uL (1.8-7.7); NEUTROPHILS % (AUTO) 72.8 % (42.2-75.2); PLATELET COUNT (AUTO) 261 K/uL (140-450); RED CELL DISTRIBUTION WIDTH 16.8 % (11.6-13.7); WHITE BLOOD COUNT (AUTO) 9.5 K/uL (4.8-10.8)
[2023-07-12 07:19] LABS: ANION GAP 9.9 (8-16); CREATININE 0.7 mg/dL (0.6-1.3); POTASSIUM 3.9 mmol/L (3.5-5.1)
[2023-07-12] MEDS ORDERED: ALBUTEROL SULFATE/IPRATROPIU 3 ML SOL IH PRN (10:20)
[2023-07-12] MEDS ORDERED: ALPRAZolam 0.5 MG TAB GT PRN (13:50)
[2023-07-12] MEDS ORDERED: MAGNESIUM HYDROXIDE 2400 MG/30 ML UDC GT SCH (21:00)
[2023-07-12] MEDS ORDERED: lisinopriL 20 MG TAB GT SCH (21:00)
[2023-07-13] VITALS (9 sets, daily range): BP systolic 109–118; BP diastolic 52–82; PULSE 55–107; RESP 16–28; TEMP 96.8–97.4; O2SAT 98–100
[2023-07-13] MEDS: ALBUTEROL SULFATE/IPRATROPIU 3 ML SOL IH SCH ×2 (00:57→07:57)
[2023-07-13 05:05] LABS: BASOPHILS % (AUTO) 0.3 % (0.0-2.0); EOSINOPHILS # (AUTO) 0.4 K/uL (0-0.4); EOSINOPHILS % (AUTO) 4.7 % (0.0-4.0); HEMATOCRIT 27.8 % (36-48); HEMOGLOBIN 8.7 g/dL (12.0-16.0); LYMPHOCYTES # (AUTO) 1.4 K/uL (2.5-16.5); LYMPHOCYTES % (AUTO) 15.6 % (20.5-51.1); MEAN CORPUSCULAR HEMOGLOBIN 24 pg (27-31); MEAN CORPUSCULAR HGB CONC 31 g/dL (33-37); MEAN CORPUSCULAR VOLUME 75.9 fL (80-94); MONOCYTES # (AUTO) 0.6 K/uL (0.8-1.0); MONOCYTES % (AUTO) 7.3 % (1.7-9.3); NEUTROPHILS # (AUTO) 6.3 K/uL (1.8-7.7); NEUTROPHILS % (AUTO) 72.1 % (42.2-75.2); PLATELET COUNT (AUTO) 252 K/uL (140-450); RED BLOOD CELL COUNT(AUTO) 3.67 MIL/uL (4.20-5.40); RED CELL DISTRIBUTION WIDTH 16.7 % (11.6-13.7); WHITE BLOOD COUNT (AUTO) 8.7 K/uL (4.8-10.8)
[2023-07-13] MEDS: PIPERACILLIN/TAZOBACTAM 3.375 GM in DEXTROSE 5% 50 ML IV SCH ×2 (05:14→12:00)
[2023-07-13 05:15] LABS: ANION GAP 10.7 (8-16); CARBON DIOXIDE 29.2 mmol/L (21-32); POTASSIUM 3.9 mmol/L (3.5-5.1)
[2023-07-13 06:22] LABS: ALBUMIN 2.3 g/dL (3.4-5.0); CALCIUM 8.7 mg/dL (8.5-10.1); CREATININE 0.6 mg/dL (0.6-1.3)
[2023-07-13 06:49] LABS: TOTAL BILIRUBIN 0.1 mg/dL (0.0-1.0); TOTAL PROTEIN, SERUM 6.1 g/dL (6.4-8.2)
[2023-07-13] MEDS ORDERED: FUROSEMIDE 20 MG TAB GT SCH (09:00)
[2023-07-13] MEDS ORDERED: amLODIPine 5 MG TAB GT SCH (09:00)
[2023-07-13] MEDS ORDERED: LEVO-481 GT (10:20)
[2023-07-13] MEDS: DILTIAZEM 30 MG TAB GT SCH ×2 (10:28→12:04)
== END 2023-07-13 14:05 | DRG 871 ==
LOC: MED 15:18 → MTU 21:24 → MIC 23:48 → MTU 07-11 18:35
PROVIDERS: ADMIT Preventive Medicine Preventive Medicine/Occupational Environmental Medicine; ATTEND Preventive Medicine Preventive Medicine/Occupational Environmental Medicine
DX: A41.9 Sepsis, unspecified organism (principal); E43 Unspecified severe protein-calorie malnutrition; J69.0 Pneumonitis due to inhalation of food and vomit; E87.0 Hyperosmolality and hypernatremia; J44.0 Chronic obstructive pulmonary disease with (acute) lower respiratory infection; Z99.11 Dependence on respirator [ventilator] status; J96.11 Chronic respiratory failure with hypoxia; J20.9 Acute bronchitis, unspecified; I50.9 Heart failure, unspecified; R79.89 Other specified abnormal findings of blood chemistry; E88.09 Other disorders of plasma-protein metabolism, not elsewhere classified; I11.0 Hypertensive heart disease with heart failure; I25.10 Atherosclerotic heart disease of native coronary artery without angina pectoris; D64.9 Anemia, unspecified; F41.9 Anxiety disorder, unspecified; R13.10 Dysphagia, unspecified; Z93.1 Gastrostomy status; Z86.73 Personal history of transient ischemic attack (TIA), and cerebral infarction without residual deficits; Z93.0 Tracheostomy status; Z68.25 Body mass index [BMI] 25.0-25.9, adult
CPT/HCPCS: 36415; 71045; 71250; 80048; 80053; 83605; 83880; 84484; 85025; 85651; 86140; 87040; 87081; 93005; 94640; 96365; 96366; 96367; 99285; J2060; J2543; J3370; J7060; Q0092

== ENCOUNTER 2023-07-24 16:49 | Emergency (ER) | payer OTHER, MEDICAID ==
[~2023-07-24] VITALS: Ht 162.6 cm; Wt 79.4 kg
[~2023-07-24 16:49] MED LIST changes: +ACET-2619 PO; +FERR75LI22 PO; +IPRA15SP NS; -IV Vancomycin; -IV Zosyn IA; +LEVO-481 GT; +MAGN400S60 PO; +ONDA-188 PO
[2023-07-24 16:51] VITALS: BP 112/60; PULSE 77; RESP 17; TEMP 97.9; O2SAT 97
[2023-07-24 20:00] VITALS: BP 112/60; PULSE 77; RESP 17; TEMP 97.9; O2SAT 97
== END 2023-07-24 20:00 | disposition home or self-care (01) ==
LOC: MED 16:49
DX: K94.23 Gastrostomy malfunction (principal); I11.0 Hypertensive heart disease with heart failure; J44.9 Chronic obstructive pulmonary disease, unspecified; J45.909 Unspecified asthma, uncomplicated; Z86.73 Personal history of transient ischemic attack (TIA), and cerebral infarction without residual deficits; Z79.899 Other long term (current) drug therapy
CPT/HCPCS: 43762; 74240; 99284; Q0092; Q9967

== ENCOUNTER 2023-08-11 06:26 | Inpatient (IN) | payer OTHER, MEDICAID ==
[~2023-08-11] VITALS: Ht 147.3 cm; Wt 68.9 kg
[2023-08-11 06:29] VITALS: BP 175/106; PULSE 142; RESP 16; TEMP 101.5; O2SAT 99
[2023-08-11] MEDS ORDERED: ALBUTEROL 0.083% 2.5 MG/3 ML NEBU INH ONE ×2 (06:45→06:46)
[2023-08-11] MEDS ORDERED: IPRATROPIUM 0.02% 0.5 MG/2.5 ML NEBU INH ONE (06:45)
[2023-08-11] MEDS ORDERED: NACL 0.9% 1,000 ML IV ONE ×2 (06:45→09:35)
[2023-08-11 06:52] VITALS: PULSE 146; PULSE 36; RESP 36; O2SAT 95
[2023-08-11 07:15] LABS: BLOOD GAS BASE EXCESS 5.6 mmol/L (-2.0-2.0); BLOOD GAS HCO3 28.5 mmol/L (22-26); BLOOD GAS PCO2 35.6 mmHg (35-45); BLOOD GAS PH 7.521 (7.35-7.45); BLOOD GAS PO2 129.2 mmHg (75-100)
[2023-08-11 07:16] LABS: BLOOD GAS O2 SAT% 98.9 % (92.0-98.5)
[2023-08-11] MEDS ORDERED: ACETAMINOPHEN 650 MG/20.3 ML UDC PO ONE (07:30)
[2023-08-11] MEDS ORDERED: methylPREDNISolone SS 125 MG/2 ML VIAL IVP ONE (07:35)
[2023-08-11 09:09] LABS: INR 1.09 (0.8-1.2); PARTIAL THROMBOPLASTIN TIME 21.7 secs (22-35.6); PROTHROMBIN TIME 11.4 secs (10.8-13.4)
[2023-08-11 09:13] LABS: ACETAMINOPHEN 2.9 ug/ml (10-30)
[2023-08-11 09:20] LABS: SALICYLATE < 2.8 mg/dL (2.8-20.0)
[2023-08-11 09:30] LABS: LACTIC ACID 4.2 mmol/L (0.4-2.0)
[2023-08-11 09:31] LABS: CREATINE KINASE, TOTAL 27 U/L (26-192)
[2023-08-11] MEDS ORDERED: ACETAMINOPHEN 650 MG/20.3 ML UDC ONE (09:38)
[2023-08-11 09:44] LABS: ALBUMIN 2.3 g/dL (3.4-5.0); ANION GAP 15.2 (8-16); CALCIUM 8.4 mg/dL (8.5-10.1); CARBON DIOXIDE 26.2 mmol/L (21-32); CREATININE 1.3 mg/dL (0.6-1.3); POTASSIUM 3.4 mmol/L (3.5-5.1); TOTAL BILIRUBIN 0.3 mg/dL (0.0-1.0); TOTAL PROTEIN, SERUM 5.8 g/dL (6.4-8.2)
[2023-08-11 10:04] LABS: MEAN CORPUSCULAR HEMOGLOBIN 23 pg (27-31)
[2023-08-11 10:17] LABS: HEMATOCRIT 36.6 % (36-48); MEAN CORPUSCULAR HGB CONC 30 g/dL (33-37); MEAN CORPUSCULAR VOLUME 76.3 fL (80-94); PLATELET COUNT (AUTO) 345 K/uL (140-450); RED CELL DISTRIBUTION WIDTH 19.3 % (11.6-13.7)
[2023-08-11 10:23] LABS: WHITE BLOOD COUNT (AUTO) 42.5 K/uL (4.8-10.8)
[2023-08-11] MEDS ORDERED: cefTRIAXone 1,000 MG VIAL ONE (10:32)
[2023-08-11] MEDS ORDERED: methylPREDNISolone SS 125 MG/2 ML VIAL ONE (10:32)
[2023-08-11 10:33] LABS: LYMPHOCYTES % (MANUAL) 4 % (20-46); MONOCYTES % (MANUAL) 4 % (5-12)
[2023-08-11 11:00] LABS: BILIRUBIN,URINE NEGATIVE (NEGATIVE); BLOOD, URINE NEGATIVE (NEGATIVE); COLOR,URINE YELLOW (YELLOW); LEUKOCYTE ESTERASE ,URINE 2+ (NEGATIVE); NITRITE, URINE NEGATIVE (NEGATIVE); PH,URINE 5.5 (5.0-9.0); PROTEIN,URINE NEGATIVE (NEGATIVE); UGLUCOSE NEGATIVE (NEGATIVE); UROBILINOGEN,URINE 0.2 EU/dL (0.2 - 1)
[2023-08-11 11:15] LABS: APPEARANCE,URINE HAZY (CLEAR)
[2023-08-11 11:16] LABS: RBC,URINE 0-5 /HPF (0-5); SQUAMOUS EPITHELIAL CELL,UR 0-3 (FEW) /LPF (0-3 (FEW)); WBC,URINE 60-80 /HPF (0-5)
[2023-08-11 11:18] LABS: BACTERIA,URINE FEW /HPF (None Seen)
[2023-08-11] MEDS ORDERED: ONDANSETRON 4 MG/2 ML VIAL IVP PRN (14:00)
[2023-08-11] MEDS ORDERED: POTASSIUM CHLORIDE 10 MEQ TABER PO PRN (14:00)
[2023-08-11] MEDS ORDERED: MAG SULF 2000 MG/WATER PREMIX 50 ML IV PRN (14:00)
[2023-08-11] MEDS ORDERED: ACETAMINOPHEN 325 MG TAB PO PRN (14:00)
[2023-08-11] MEDS: NACL 0.9% 1,000 ML IV SCH (14:00)
[2023-08-11 15:32] LABS: INR 1.04 (0.8-1.2); PARTIAL THROMBOPLASTIN TIME 28.1 secs (22-35.6); PROTHROMBIN TIME 10.9 secs (10.8-13.4)
[2023-08-11 16:14] LABS: ANION GAP 13.7 (8-16); CALCIUM 8.3 mg/dL (8.5-10.1); CARBON DIOXIDE 27.8 mmol/L (21-32); CREATININE 1.2 mg/dL (0.6-1.3); POTASSIUM 3.5 mmol/L (3.5-5.1)
[2023-08-11] MEDS ORDERED: DILTIAZEM 25 MG/5 ML VIAL IVP ONE (17:11)
[2023-08-11] MEDS ORDERED: DILTIAZEM 25 MG/5 ML VIAL IVP SCH (17:18)
[2023-08-11] MEDS ORDERED: VANCOMYCIN PER PHARMACY MC PRN (17:55)
[2023-08-11] MEDS ORDERED: AMIODARONE 150 MG in DEXTROSE 5% 100 ML IV SCH (18:00)
[2023-08-11] MEDS: AMIODARONE 450 MG in DEXTROSE 5% 250 ML IV SCH (18:53)
[2023-08-11] MEDS ORDERED: VANCOMYCIN 1,000 MG VIAL ONE (18:54)
[2023-08-11] MEDS: VANCOMYCIN 750 MG in DEXTROSE 5% 250 ML IV SCH (18:58)
[2023-08-11 19:49] VITALS: PULSE 146; RESP 24; O2SAT 100; O2SAT 98
[2023-08-11] MEDS ORDERED: LOVENOX 1MG/KG Q12H SUBQ SCH (21:00)
[2023-08-11] MEDS: PIPERACILLIN/TAZOBACTAM 3.375 GM in DEXTROSE 5% 50 ML IV SCH (21:00)
[2023-08-11] MEDS: DOCUSATE SODIUM 100 MG GELCAP PO SCH (21:00)
[2023-08-11] MEDS ORDERED: ENOXAPARIN 40 MG/0.4 ML SYR SUBQ SCH (21:00)
[2023-08-11] MEDS ORDERED: PIPERACILLIN/TAZOBACTAM 3.375 GM VIAL IV ONE (21:32)
[2023-08-11 22:34] LABS: AMYLASE 35 U/L (25-115); CHOL/HDL RATIO 3.6 (1-4.5); CHOLESTEROL 135 mg/dL (<200); FREE T4 (FREE THYROXINE) 1.32 ng/dL (0.76-1.46); HDL CHOLESTEROL 37 mg/dL (40-60); LDL (CALC) 78 mg/dL (60-100); LIPASE 55 U/L (16-77); MAGNESIUM 2.6 mg/dL (1.8-2.4); PHOSPHORUS 3.5 mg/dL (2.5-4.9); THYROID STIMULATING HORMONE < 0.01 uIU/mL (0.34-3.74); TRIGLYCERIDES 104 mg/dL (30-150)
[2023-08-12] VITALS (16 sets, daily range): BP systolic 104–129; BP diastolic 60–97; PULSE 126–146; RESP 19–27; TEMP 97–97.6; O2SAT 97–100
[2023-08-12 03:19] LABS: FLU A ANTIGEN negative (NEGATIVE); FLU B ANTIGEN NEGATIVE (NEGATIVE)
[2023-08-12] MEDS: PIPERACILLIN/TAZOBACTAM 3.375 GM in DEXTROSE 5% 50 ML IV SCH ×3 (05:00→20:37)
[2023-08-12] MEDS ORDERED: FURO-570 PO (05:11)
[2023-08-12] MEDS ORDERED: PIPERACILLIN/TAZOBACTAM 3.375 GM VIAL IV ONE (06:30)
[2023-08-12 08:15] LABS: BASOPHILS # (AUTO) 0.1 K/uL (0.00-0.22); BASOPHILS % (AUTO) 0.3 % (0.0-2.0); EOSINOPHILS # (AUTO) 0.1 K/uL (0-0.4); EOSINOPHILS % (AUTO) 0.3 % (0.0-4.0); HEMATOCRIT 28.6 % (36-48); HEMOGLOBIN 8.3 g/dL (12.0-16.0); LYMPHOCYTES # (AUTO) 1.4 K/uL (2.5-16.5); LYMPHOCYTES % (AUTO) 3.7 % (20.5-51.1); MEAN CORPUSCULAR HEMOGLOBIN 23 pg (27-31); MEAN CORPUSCULAR HGB CONC 29 g/dL (33-37); MEAN CORPUSCULAR VOLUME 78.9 fL (80-94); MONOCYTES # (AUTO) 1.2 K/uL (0.8-1.0); MONOCYTES % (AUTO) 3.3 % (1.7-9.3); NEUTROPHILS # (AUTO) 34.4 K/uL (1.8-7.7); NEUTROPHILS % (AUTO) 92.4 % (42.2-75.2); PLATELET COUNT (AUTO) 269 K/uL (140-450); RED BLOOD CELL COUNT(AUTO) 3.63 MIL/uL (4.20-5.40); RED CELL DISTRIBUTION WIDTH 19.8 % (11.6-13.7)
[2023-08-12 08:22] LABS: WHITE BLOOD COUNT (AUTO) 37.2 K/uL (4.8-10.8)
[2023-08-12 08:39] LABS: ANION GAP 14.7 (8-16); CARBON DIOXIDE 21.7 mmol/L (21-32); CREATININE 0.8 mg/dL (0.6-1.3); POTASSIUM 4.4 mmol/L (3.5-5.1)
[2023-08-12 08:40] LABS: MAGNESIUM 2.2 mg/dL (1.8-2.4); PHOSPHORUS 3.5 mg/dL (2.5-4.9)
[2023-08-12] MEDS: DOCUSATE SODIUM 100 MG GELCAP PO SCH ×2 (09:00→20:56)
[2023-08-12] MEDS: PANTOPRAZOLE 40 MG INJ VIAL IVP SCH (09:00)
[2023-08-12] MEDS: NACL 0.9% 1,000 ML IV SCH (10:09)
[2023-08-12] MEDS: DEXTROSE 5% 1,000 ML IV SCH ×2 (10:30→23:00)
[2023-08-12] MEDS ORDERED: DIGOXIN 0.25 MG/ML AMP IV SCH ×2 (15:50→22:00)
[2023-08-12] MEDS: IPRATROPIUM 0.02% 0.5 MG/2.5 ML NEBU INH SCH ×2 (16:21→20:14)
[2023-08-12] MEDS: LEVALBUTEROL 0.63 MG/3 ML NEBU INH SCH ×2 (16:21→20:14)
[2023-08-12] MEDS: VANCOMYCIN 750 MG in DEXTROSE 5% 250 ML IV SCH (18:49)
[2023-08-12] MEDS: AMIODARONE 450 MG in DEXTROSE 5% 250 ML IV SCH (20:46)
[2023-08-12] MEDS ORDERED: AMIODARONE 450 MG in DEXTROSE 5% 250 ML IV SCH (22:05)
[2023-08-13] VITALS (29 sets, daily range): BP systolic 95–153; BP diastolic 45–76; PULSE 68–137; RESP 16–31; TEMP 96.9–97.2; O2SAT 92–100
[2023-08-13] MEDS: IPRATROPIUM 0.02% 0.5 MG/2.5 ML NEBU INH SCH ×4 (01:58→19:37)
[2023-08-13] MEDS: DEXTROSE 5% 1,000 ML IV SCH ×2 (03:40→18:31)
[2023-08-13] MEDS: PIPERACILLIN/TAZOBACTAM 3.375 GM in DEXTROSE 5% 50 ML IV SCH ×3 (05:31→20:37)
[2023-08-13] MEDS ORDERED: AMIODARONE 450 MG/9 ML VIAL IV ONE (06:55)
[2023-08-13 07:03] LABS: BASOPHILS % (AUTO) 0.1 % (0.0-2.0); EOSINOPHILS # (AUTO) 0.1 K/uL (0-0.4); EOSINOPHILS % (AUTO) 0.3 % (0.0-4.0); HEMATOCRIT 26.6 % (36-48); HEMOGLOBIN 8.1 g/dL (12.0-16.0); LYMPHOCYTES # (AUTO) 1.8 K/uL (2.5-16.5); LYMPHOCYTES % (AUTO) 8.1 % (20.5-51.1); MEAN CORPUSCULAR HEMOGLOBIN 24 pg (27-31); MEAN CORPUSCULAR HGB CONC 31 g/dL (33-37); MONOCYTES # (AUTO) 1.3 K/uL (0.8-1.0); MONOCYTES % (AUTO) 6.1 % (1.7-9.3); NEUTROPHILS # (AUTO) 18.7 K/uL (1.8-7.7); NEUTROPHILS % (AUTO) 85.4 % (42.2-75.2); PLATELET COUNT (AUTO) 254 K/uL (140-450); RED BLOOD CELL COUNT(AUTO) 3.46 MIL/uL (4.20-5.40); RED CELL DISTRIBUTION WIDTH 19.2 % (11.6-13.7); WHITE BLOOD COUNT (AUTO) 21.9 K/uL (4.8-10.8)
[2023-08-13 07:22] LABS: ANION GAP 11.6 (8-16); CALCIUM 8.3 mg/dL (8.5-10.1); CARBON DIOXIDE 24.8 mmol/L (21-32); CREATININE 0.8 mg/dL (0.6-1.3); POTASSIUM 3.4 mmol/L (3.5-5.1)
[2023-08-13] MEDS: LEVALBUTEROL 0.63 MG/3 ML NEBU INH SCH ×3 (08:09→19:37)
[2023-08-13] MEDS: DOCUSATE SODIUM 100 MG GELCAP PO SCH ×2 (09:00→20:39)
[2023-08-13] MEDS: PANTOPRAZOLE 40 MG INJ VIAL IVP SCH (09:12)
[2023-08-13 09:28] LABS: PHOSPHORUS 2.2 mg/dL (2.5-4.9)
[2023-08-13] MEDS: HYDROcodone/APAP 7.5/325 MG 1 TAB PO PRN ×2 (11:04→12:34)
[2023-08-13] MEDS ORDERED: DIGOXIN 0.25 MG/ML AMP IV SCH (16:00)
[2023-08-13] MEDS: METOPROLOL 25 MG TAB GT SCH ×2 (17:40→20:39)
[2023-08-13] MEDS: VANCOMYCIN 750 MG in DEXTROSE 5% 250 ML IV SCH (18:29)
[2023-08-13] MEDS: AMIODARONE 200 MG TAB GT SCH ×2 (19:02→20:41)
[2023-08-13] MEDS: APIXABAN 2.5 MG TAB PO SCH (20:38)
[2023-08-14] VITALS (29 sets, daily range): BP systolic 86–132; BP diastolic 6–79; PULSE 80–119; RESP 17–30; TEMP 96.7–98.3; O2SAT 98–100
[2023-08-14] MEDS: IPRATROPIUM 0.02% 0.5 MG/2.5 ML NEBU INH SCH ×4 (01:53→19:39)
[2023-08-14] MEDS: PIPERACILLIN/TAZOBACTAM 3.375 GM in DEXTROSE 5% 50 ML IV SCH ×3 (05:13→20:26)
[2023-08-14 05:52] LABS: BASOPHILS # (AUTO) 0.2 K/uL (0.00-0.22); BASOPHILS % (AUTO) 0.7 % (0.0-2.0); EOSINOPHILS # (AUTO) 0.2 K/uL (0-0.4); EOSINOPHILS % (AUTO) 0.7 % (0.0-4.0); HEMATOCRIT 29.2 % (36-48); HEMOGLOBIN 8.9 g/dL (12.0-16.0); LYMPHOCYTES # (AUTO) 2.2 K/uL (2.5-16.5); LYMPHOCYTES % (AUTO) 8.4 % (20.5-51.1); MEAN CORPUSCULAR HEMOGLOBIN 23 pg (27-31); MEAN CORPUSCULAR HGB CONC 30 g/dL (33-37); MEAN CORPUSCULAR VOLUME 76.4 fL (80-94); MONOCYTES # (AUTO) 1.7 K/uL (0.8-1.0); MONOCYTES % (AUTO) 6.7 % (1.7-9.3); NEUTROPHILS # (AUTO) 21.6 K/uL (1.8-7.7); NEUTROPHILS % (AUTO) 83.5 % (42.2-75.2); PLATELET COUNT (AUTO) 322 K/uL (140-450); RED BLOOD CELL COUNT(AUTO) 3.82 MIL/uL (4.20-5.40); RED CELL DISTRIBUTION WIDTH 18.6 % (11.6-13.7)
[2023-08-14 06:01] LABS: WHITE BLOOD COUNT (AUTO) 25.9 K/uL (4.8-10.8)
[2023-08-14 07:02] LABS: ANION GAP 12.1 (8-16); CALCIUM 8.2 mg/dL (8.5-10.1); CARBON DIOXIDE 26.6 mmol/L (21-32); CREATININE 0.7 mg/dL (0.6-1.3); POTASSIUM 3.7 mmol/L (3.5-5.1)
[2023-08-14 07:10] LABS: PHOSPHORUS 2.6 mg/dL (2.5-4.9)
[2023-08-14] MEDS: LEVALBUTEROL 0.63 MG/3 ML NEBU INH SCH ×3 (07:58→19:39)
[2023-08-14] MEDS: DOCUSATE SODIUM 100 MG GELCAP PO SCH ×2 (08:41→20:14)
[2023-08-14] MEDS: PANTOPRAZOLE 40 MG INJ VIAL IVP SCH (08:41)
[2023-08-14] MEDS: APIXABAN 2.5 MG TAB PO SCH ×2 (08:42→20:16)
[2023-08-14] MEDS ORDERED: VANCOMYCIN 1.25GM PREMIX 250 ML IV SCH (09:00)
[2023-08-14] MEDS: DIGOXIN 0.125 MG/2.5 ML UDC GT SCH (09:40)
[2023-08-14] MEDS: AMIODARONE 200 MG TAB GT SCH ×2 (09:40→20:14)
[2023-08-14] MEDS: DEXTROSE 5% 1,000 ML IV SCH (13:07)
[2023-08-14] MEDS: HYDROcodone/APAP 7.5/325 MG 1 TAB PO PRN (13:28)
[2023-08-14 21:31] LABS: AMPHETAMINE, URINE NEGATIVE ng/ml (NEG <=1000); BARBITURATE, URINE NEGATIVE ng/ml (NEG <=200); BENZODIAZEPINE, URINE NEGATIVE ng/mL (NEG <=200); CANNABINOID, URINE NEGATIVE ng/mL (NEG <=50); COCAINE, URINE NEGATIVE ng/mL (NEG <=300); OPIATE, URINE POSITIVE ng/mL (NEG <=2000); PHENCYCLIDINE SCREEN,URINE NEGATIVE ng/mL (NEG <=25)
[2023-08-15] VITALS (12 sets, daily range): BP systolic 94–112; BP diastolic 43–60; PULSE 62–97; RESP 18–26; TEMP 96.8–98.5; O2SAT 99–100
[2023-08-15] MEDS: DEXTROSE 5% 1,000 ML IV SCH ×2 (01:00→12:53)
[2023-08-15] MEDS: IPRATROPIUM 0.02% 0.5 MG/2.5 ML NEBU INH SCH ×4 (02:35→20:01)
[2023-08-15] MEDS: PIPERACILLIN/TAZOBACTAM 3.375 GM in DEXTROSE 5% 50 ML IV SCH ×3 (05:37→21:32)
[2023-08-15] MEDS: LEVALBUTEROL 0.63 MG/3 ML NEBU INH SCH ×3 (07:10→20:02)
[2023-08-15 07:23] LABS: BASOPHILS % (AUTO) 0.2 % (0.0-2.0); EOSINOPHILS # (AUTO) 0.2 K/uL (0-0.4); HEMOGLOBIN 7.8 g/dL (12.0-16.0); LYMPHOCYTES # (AUTO) 1.4 K/uL (2.5-16.5); LYMPHOCYTES % (AUTO) 7.1 % (20.5-51.1); MEAN CORPUSCULAR HEMOGLOBIN 23 pg (27-31); MEAN CORPUSCULAR HGB CONC 30 g/dL (33-37); MONOCYTES # (AUTO) 1.4 K/uL (0.8-1.0); MONOCYTES % (AUTO) 7.1 % (1.7-9.3); NEUTROPHILS % (AUTO) 84.6 % (42.2-75.2); PLATELET COUNT (AUTO) 275 K/uL (140-450); RED BLOOD CELL COUNT(AUTO) 3.42 MIL/uL (4.20-5.40); RED CELL DISTRIBUTION WIDTH 18.2 % (11.6-13.7); WHITE BLOOD COUNT (AUTO) 20.1 K/uL (4.8-10.8)
[2023-08-15 07:41] LABS: MAGNESIUM 2.1 mg/dL (1.8-2.4); PHOSPHORUS 2.6 mg/dL (2.5-4.9)
[2023-08-15 07:48] LABS: ANION GAP 10.4 (8-16); CALCIUM 8.1 mg/dL (8.5-10.1); CARBON DIOXIDE 27.9 mmol/L (21-32); CREATININE 0.6 mg/dL (0.6-1.3); POTASSIUM 3.3 mmol/L (3.5-5.1)
[2023-08-15] MEDS: PANTOPRAZOLE 40 MG INJ VIAL IVP SCH (08:25)
[2023-08-15] MEDS: DIGOXIN 0.125 MG/2.5 ML UDC GT SCH (09:00)
[2023-08-15] MEDS: AMIODARONE 200 MG TAB GT SCH ×2 (09:00→21:31)
[2023-08-15] MEDS: DOCUSATE SODIUM 100 MG GELCAP PO SCH ×2 (09:01→21:38)
[2023-08-15] MEDS: APIXABAN 2.5 MG TAB PO SCH ×2 (09:05→21:44)
[2023-08-15] MEDS ORDERED: POTASSIUM CHLORIDE 20% 40 MEQ/15 ML UDC GT ONE (09:30)
[2023-08-15] MEDS ORDERED: bisacodyL 10 MG SUPP RC SCH (14:30)
[2023-08-15 16:36] LABS: THYROID STIMULATING HORMONE 0.01 uIU/mL (0.34-3.74)
[2023-08-15] MEDS: LACTULOSE 20 GM/30 ML UDC PO SCH (21:33)
[2023-08-15] MEDS: SENNA 8.6 MG TAB PO SCH (21:41)
[2023-08-16] VITALS (10 sets, daily range): BP systolic 111–122; BP diastolic 51–72; PULSE 78–95; RESP 18–20; TEMP 97.3–98.7; O2SAT 95–100
[2023-08-16] MEDS: IPRATROPIUM 0.02% 0.5 MG/2.5 ML NEBU INH SCH ×4 (01:42→20:02)
[2023-08-16] MEDS: DEXTROSE 5% 1,000 ML IV SCH ×2 (06:15→14:30)
[2023-08-16] MEDS: PIPERACILLIN/TAZOBACTAM 3.375 GM in DEXTROSE 5% 50 ML IV SCH (06:16)
[2023-08-16] MEDS: LEVALBUTEROL 0.63 MG/3 ML NEBU INH SCH ×3 (08:19→20:02)
[2023-08-16] MEDS ORDERED: FERROUS SULFATE 300 MG/5 ML UDC GT SCH (09:00)
[2023-08-16] MEDS: APIXABAN 2.5 MG TAB PO SCH (09:00)
[2023-08-16] MEDS: PANTOPRAZOLE 40 MG INJ VIAL IVP SCH (09:00)
[2023-08-16] MEDS: AMIODARONE 200 MG TAB GT SCH ×2 (09:20→21:25)
[2023-08-16] MEDS: SENNA 8.6 MG TAB PO SCH ×3 (09:20→16:37)
[2023-08-16] MEDS: LACTULOSE 20 GM/30 ML UDC PO SCH ×4 (09:20→21:25)
[2023-08-16] MEDS: DOCUSATE SODIUM 100 MG GELCAP PO SCH ×2 (09:21→21:26)
[2023-08-16] MEDS: DIGOXIN 0.125 MG/2.5 ML UDC GT SCH (09:22)
[2023-08-16] MEDS ORDERED: SENNA 8.6 MG TAB PO SCH (10:45)
[2023-08-16] MEDS ORDERED: LACTULOSE 20 GM/30 ML UDC PO SCH (10:45)
[2023-08-16] MEDS ORDERED: POTASSIUM CHLORIDE 20% 40 MEQ/15 ML UDC GT SCH (10:51)
[2023-08-16 11:03] LABS: BASOPHILS % (AUTO) 0.2 % (0.0-2.0); EOSINOPHILS # (AUTO) 0.5 K/uL (0-0.4); EOSINOPHILS % (AUTO) 2.1 % (0.0-4.0); HEMATOCRIT 25.2 % (36-48); HEMOGLOBIN 7.8 g/dL (12.0-16.0); LYMPHOCYTES # (AUTO) 1.5 K/uL (2.5-16.5); MEAN CORPUSCULAR HEMOGLOBIN 24 pg (27-31); MEAN CORPUSCULAR HGB CONC 31 g/dL (33-37); MEAN CORPUSCULAR VOLUME 76.4 fL (80-94); MONOCYTES # (AUTO) 1.4 K/uL (0.8-1.0); MONOCYTES % (AUTO) 6.5 % (1.7-9.3); NEUTROPHILS # (AUTO) 18.8 K/uL (1.8-7.7); PLATELET COUNT (AUTO) 331 K/uL (140-450); RED CELL DISTRIBUTION WIDTH 18.8 % (11.6-13.7); WHITE BLOOD COUNT (AUTO) 22.3 K/uL (4.8-10.8)
[2023-08-16 11:34] LABS: ANION GAP 14.1 (8-16); CALCIUM 8.6 mg/dL (8.5-10.1); CARBON DIOXIDE 26.8 mmol/L (21-32); CREATININE 0.5 mg/dL (0.6-1.3); POTASSIUM 3.9 mmol/L (3.5-5.1)
[2023-08-16 11:44] LABS: MAGNESIUM 2.1 mg/dL (1.8-2.4); PHOSPHORUS 2.3 mg/dL (2.5-4.9)
[2023-08-16 11:47] LABS: LYMPHOCYTES % (AUTO) 6.7 % (20.5-51.1); NEUTROPHILS % (AUTO) 84.5 % (42.2-75.2)
[2023-08-16] MEDS: SUPREP BOWEL PREP KIT 354 ML SOLN.RECON PO SCH (21:26)
[2023-08-17] VITALS: BP 119/60; PULSE 79; PULSE 84; RESP 18; TEMP 97.8; O2SAT 99
[2023-08-17 00:48] VITALS: PULSE 90; RESP 18; O2SAT 98
[2023-08-17] MEDS: IPRATROPIUM 0.02% 0.5 MG/2.5 ML NEBU INH SCH ×3 (00:48→15:05)
[2023-08-17] MEDS: DEXTROSE 5% 1,000 ML IV SCH (03:23)
[2023-08-17 04:00] VITALS: BP 124/61; PULSE 74; PULSE 88; RESP 18; TEMP 97.8; O2SAT 99
[2023-08-17 06:31] LABS: BASOPHILS % (AUTO) 0.4 % (0.0-2.0); EOSINOPHILS # (AUTO) 0.5 K/uL (0-0.4); HEMATOCRIT 23.6 % (36-48); HEMOGLOBIN 7.3 g/dL (12.0-16.0); LYMPHOCYTES # (AUTO) 1.6 K/uL (2.5-16.5); LYMPHOCYTES % (AUTO) 11.8 % (20.5-51.1); MEAN CORPUSCULAR HEMOGLOBIN 23 pg (27-31); MEAN CORPUSCULAR HGB CONC 31 g/dL (33-37); MEAN CORPUSCULAR VOLUME 75.8 fL (80-94); MONOCYTES # (AUTO) 1.1 K/uL (0.8-1.0); MONOCYTES % (AUTO) 8.4 % (1.7-9.3); NEUTROPHILS # (AUTO) 9.9 K/uL (1.8-7.7); NEUTROPHILS % (AUTO) 75.4 % (42.2-75.2); PLATELET COUNT (AUTO) 357 K/uL (140-450); RED BLOOD CELL COUNT(AUTO) 3.12 MIL/uL (4.20-5.40); RED CELL DISTRIBUTION WIDTH 19.2 % (11.6-13.7); WHITE BLOOD COUNT (AUTO) 13.2 K/uL (4.8-10.8)
[2023-08-17 06:50] LABS: ANION GAP 10.4 (8-16); CALCIUM 8.4 mg/dL (8.5-10.1); CARBON DIOXIDE 28.3 mmol/L (21-32); CREATININE 0.4 mg/dL (0.6-1.3); POTASSIUM 3.7 mmol/L (3.5-5.1)
[2023-08-17] MEDS: LEVALBUTEROL 0.63 MG/3 ML NEBU INH SCH ×2 (07:00→15:05)
[2023-08-17 08:00] VITALS: BP 134/55; PULSE 73; PULSE 75; PULSE 88; RESP 19; RESP 20; TEMP 97.5; O2SAT 100; O2SAT 97
[2023-08-17] MEDS: DOCUSATE SODIUM 100 MG GELCAP PO SCH (09:00)
[2023-08-17] MEDS: PANTOPRAZOLE 40 MG INJ VIAL IVP SCH (09:00)
[2023-08-17] MEDS: SUPREP BOWEL PREP KIT 354 ML SOLN.RECON PO SCH (09:00)
[2023-08-17] MEDS: DIGOXIN 0.125 MG/2.5 ML UDC GT SCH (10:24)
[2023-08-17] MEDS: LACTULOSE 20 GM/30 ML UDC PO SCH (10:24)
[2023-08-17] MEDS: SENNA 8.6 MG TAB PO SCH (10:25)
[2023-08-17] MEDS: AMIODARONE 200 MG TAB GT SCH (10:26)
[2023-08-17] MEDS ORDERED: diphenhydrAMINE 50 MG/ML VIAL ONE (11:27)
[2023-08-17] MEDS ORDERED: fentaNYL citrate 0.05 MG/ML VIAL ONE (11:27)
[2023-08-17] MEDS ORDERED: MIDAZOLAM 5 MG/5 ML VIAL ONE (11:27)
[2023-08-17 12:00] VITALS: BP 133/79; PULSE 75; RESP 20; TEMP 98.9; O2SAT 99
[2023-08-17] MEDS ORDERED: LACTULOSE 20 GM/30 ML UDC PO SCH (12:25)
[2023-08-17] MEDS ORDERED: FUROSEMIDE 20 MG/2 ML VIAL IVP SCH (12:31)
[2023-08-17] MEDS ORDERED: SUCRALFATE 1 GM TAB GT SCH (13:00)
[2023-08-17] MEDS ORDERED: MIDAZOLAM 2 MG/2 ML VIAL IVP ONE (14:10)
[2023-08-17] MEDS ORDERED: fentaNYL citrate 0.05 MG/ML VIAL IVP ONE (14:10)
[2023-08-17] MEDS ORDERED: LANS30EC68 PO (15:52)
[2023-08-17] MEDS ORDERED: DOCU-299 PO (15:52)
[2023-08-17] MEDS ORDERED: ATRN INH (15:52)
[2023-08-17] MEDS ORDERED: SUCR1TAB56 GT (15:52)
[2023-08-17] MEDS ORDERED: FER300L GT (15:52)
[2023-08-17] MEDS ORDERED: AMIO200T10 GT (15:52)
[2023-08-17] MEDS ORDERED: LACT10SO11 PO (15:52)
[2023-08-17] MEDS ORDERED: DIGO0.051 GT (15:52)
[2023-08-17] MEDS ORDERED: MERO1VIA15 IV (15:52)
[2023-08-17 17:15] VITALS: BP 133/79; PULSE 75; RESP 20; TEMP 98.9
[2023-08-17] MEDS ORDERED: AMIODARONE 200 MG TAB GT SCH (21:00)
[2023-08-17] MEDS ORDERED: FERROUS SULFATE 300 MG/5 ML UDC GT SCH (21:00)
[2023-08-18] MEDS ORDERED: LANSOPRAZOLE 30 MG CAPDR PO SCH (06:30)
== END 2023-08-17 18:12 | DRG 871 ==
LOC: MED 06:26 → MTU 14:04 → MIC 08-12 08:52 → MTU 08-14 21:28
PROC: 05HY33Z Insertion of Infusion Device into Upper Vein, Percutaneous Approach (ICD-10-PCS; 2023-08-11)
PROC: B54NZZA Ultrasonography of Left Upper Extremity Veins, Guidance (ICD-10-PCS; 2023-08-11)
PROC: 0DJD8ZZ Inspection of Lower Intestinal Tract, Via Natural or Artificial Opening Endoscopic (ICD-10-PCS; principal; 2023-08-17 11:00)
PROC: 0DB78ZX Excision of Stomach, Pylorus, Via Natural or Artificial Opening Endoscopic, Diagnostic (ICD-10-PCS; 2023-08-17 11:00)
DX: A41.51 Sepsis due to Escherichia coli [E. coli] (principal); J15.5 Pneumonia due to Escherichia coli; J96.21 Acute and chronic respiratory failure with hypoxia; I48.92 Unspecified atrial flutter; N39.0 Urinary tract infection, site not specified; J47.0 Bronchiectasis with acute lower respiratory infection; E87.0 Hyperosmolality and hypernatremia; N17.9 Acute kidney failure, unspecified; J44.0 Chronic obstructive pulmonary disease with (acute) lower respiratory infection; M87.852 Other osteonecrosis, left femur; M87.851 Other osteonecrosis, right femur; I48.91 Unspecified atrial fibrillation; R13.10 Dysphagia, unspecified; K80.20 Calculus of gallbladder without cholecystitis without obstruction; J40 Bronchitis, not specified as acute or chronic; Z20.822 Contact with and (suspected) exposure to COVID-19; D50.0 Iron deficiency anemia secondary to blood loss (chronic); I11.0 Hypertensive heart disease with heart failure; I50.9 Heart failure, unspecified; K56.41 Fecal impaction; Z79.899 Other long term (current) drug therapy; Z93.1 Gastrostomy status; Z93.0 Tracheostomy status; Z86.73 Personal history of transient ischemic attack (TIA), and cerebral infarction without residual deficits
CPT/HCPCS: 36415; 36600; 70450; 71045; 80048; 80053; 80202; 80305; 81001; 82140; 82150; 82272; 82550; 82728; 82803; 83036; 83540; 83605; 83690; 83735; 83880; 84100; 84439; 84443; 84484; 85025; 85610; 85730; 87040; 87070; 87081; 87086; 87205; 89220; 93005; 94640; 96361; 96365; 99285; C9113; G0480; J0282; J0696; J1160; J1200; J1650; J2250; J2543; J2930; J3010; J3370; J3372; J3490; J7060; J7613; J7614; J7644; Q9967

== ENCOUNTER 2023-08-24 11:00 | Emergency (ER) | payer OTHER, MEDICAID ==
[~2023-08-24] VITALS: Ht 149.9 cm; Wt 63.5 kg
[~2023-08-24 11:00] MED LIST changes: +AMIO200T10 GT; -AMLO5TAB PO; +ATRN INH; +DIGO0.051 GT; -DILT30TA18 GT; +DOCU-299 PO; -DOCU250S72 GT; +FER300L GT; -FERR75LI22 PO; +LACT10SO11 PO; +LANS30EC68 PO; -LEVO-481 GT; -LISI-487 PO; +MERO1VIA15 IV; -PRED5TAB8 PO; +SUCR1TAB56 GT
[2023-08-24 11:01] VITALS: BP 118/70; PULSE 0; RESP 20; TEMP 97.2; O2SAT 99
[2023-08-24 11:11] VITALS: O2SAT 96
[2023-08-24 13:46] VITALS: BP 137/79; PULSE 74; RESP 26; TEMP 97.4; O2SAT 100
== END 2023-08-24 13:47 ==
LOC: MED 11:00
DX: S80.01XA Contusion of right knee, initial encounter (principal); I10 Essential (primary) hypertension; Z86.73 Personal history of transient ischemic attack (TIA), and cerebral infarction without residual deficits; Z79.899 Other long term (current) drug therapy; W18.30XA Fall on same level, unspecified, initial encounter; Y93.89 Activity, other specified; Y92.89 Other specified places as the place of occurrence of the external cause; Y99.8 Other external cause status
CPT/HCPCS: 73562; 99283

== ENCOUNTER 2023-09-12 04:10 | Emergency (ER) | payer OTHER, MEDICAID ==
[~2023-09-12] VITALS: Ht 165.1 cm; Wt 81.6 kg
[2023-09-12 04:10] VITALS: BP 0/0; PULSE 0; RESP 14; O2SAT 98
[2023-09-12] MEDS ORDERED: CODE BLUE PARTICIPANT 1 EA MISC MC ONE (04:30)
== END 2023-09-12 04:26 ==
LOC: MED 04:10
DX: I46.9 Cardiac arrest, cause unspecified (principal); Z79.899 Other long term (current) drug therapy
CPT/HCPCS: 92950; 99285